=== PATIENT | female | born 1930 | race Caucasian/White ===

== ENCOUNTER 2016-12-18 13:09 | Outpatient (CLI) | payer MEDICARE, OTHER ==
[2016-12-18 19:20] LABS: CALCIUM 8.7 mg/dL (8.5-10.3); CREATININE 0.9 mg/dL (0.4-1.0)
== END 2016-12-18 13:10 | disposition home or self-care (01) ==
LOC: LAB.WCP 13:09
PROVIDERS: ATTEND Internal Medicine Cardiovascular Disease
DX: I48.1 Persistent atrial fibrillation (principal); I10 Essential (primary) hypertension; Z51.81 Encounter for therapeutic drug level monitoring; Z79.899 Other long term (current) drug therapy
CPT/HCPCS: 36415; 80048

== ENCOUNTER 2016-12-19 09:19 | Outpatient (CLI) | payer MEDICARE, OTHER | END 2016-12-19 09:20 | disposition home or self-care (01) | LOC: DI 09:19 | PROVIDERS: ATTEND Internal Medicine Cardiovascular Disease | DX: I48.1 Persistent atrial fibrillation (principal); I10 Essential (primary) hypertension; I47.2 Ventricular tachycardia; Z51.81 Encounter for therapeutic drug level monitoring; Z79.899 Other long term (current) drug therapy; Z95.0 Presence of cardiac pacemaker; I51.7 Cardiomegaly | CPT/HCPCS: 93306 ==

== ENCOUNTER 2016-12-26 15:28 | Outpatient (CLI) | payer MEDICARE, OTHER ==
[2016-12-26 19:21] LABS: HGB - HEMOGLOBIN 13.1 g/dL (12.0-16.0); LYMPHOCYTES # (AUTO) 0.6 10^3/uL (1.5-3.5); MEAN CORPUSCULAR HGB CONC 32.9 g/dL (32.0-36.0); MONOCYTES # (AUTO) 0.1 10^3/uL (0.0-1.0); MONOCYTES % (AUTO) 1.7 %
[2016-12-26 19:25] LABS: BASOPHILS % (AUTO) 0.2 %; EOSINOPHILS % (AUTO) 0.1 %; HCT - HEMATOCRIT 39.9 % (37.0-47.0); MEAN CORPUSCULAR HEMOGLOBIN 29.2 pg (27.0-31.0); MEAN CORPUSCULAR VOLUME 88.7 fL (81.0-99.0); MEAN PLATELET VOLUME 8.5 fL (7.9-10.8); NEUTROPHILS # (AUTO) 7.6 10^3/uL (1.5-6.6); RED BLOOD COUNT 4.49 10^6/uL (4.20-5.40); RED CELL DISTRIBUTION WIDTH 14.3 % (12.0-15.0); UNCORRECTED WHITE BLOOD COUNT 8.4 x10^3/uL; WHITE BLOOD COUNT 8.4 x10^3/uL (4.8-10.8)
[2016-12-26 19:31] LABS: ALBUMIN/GLOBULIN RATIO 1.6 (1.0-2.2); BILIRUBIN,TOTAL 0.5 mg/dL (0.2-1.0); BUN - BLOOD UREA NITROGEN 26 mg/dL (6-20); CALCIUM 8.7 mg/dL (8.5-10.3); CARBON DIOXIDE - CO2 26 mmol/L (21-32); CHLORIDE 105 mmol/L (101-111); CREATININE 1.1 mg/dL (0.4-1.0); GFR - MDRD 47 (>89); GLUCOSE 128 mg/dL (70-100); POTASSIUM 4.7 mmol/L (3.5-5.0); SODIUM 139 mmol/L (135-145); TOTAL PROTEIN 6.8 g/dL (6.7-8.2)
[2016-12-26 20:12] LABS: PLATELET MORPHOLOGY NORMAL APPEARANCE (NORMAL)
[2016-12-26 20:13] LABS: PLATELET ESTIMATE, MANUAL NORMAL (130-450,000) (NORMAL)
== END 2016-12-26 15:29 ==
LOC: LAB.WCP 15:28
PROVIDERS: ATTEND Family Medicine
DX: J44.9 Chronic obstructive pulmonary disease, unspecified (principal); I10 Essential (primary) hypertension; I48.0 Paroxysmal atrial fibrillation; R06.09 Other forms of dyspnea
CPT/HCPCS: 36415; 80053; 83880; 84443; 85025

== ENCOUNTER 2017-01-10 09:30 | Outpatient (CLI) | payer MEDICARE, OTHER ==
[2017-01-10 18:37] VITALS: BP 132/74
--- NOTE | 2017-01-11 11:15 | Nuclear Medicine Report ---
EXAM: SINGLE-ISOTOPE PHARMACOLOGICAL STRESS TEST WITH ADENOSINE. SINGLE-ISOTOPE AND SAME-DAY REST/STRESS MY OCARDIAL PERFUSION SCANS WITH TOMOGRAPHIC IMAGING, QUANTITATIVE ANALYSIS, WALL MOTION ANALYSIS AND CA LCULATION OF EJECTION FRACTION. EXAM DATE: 01/10/2017 10:51 AM. CLINICAL HISTORY: Atrial fibrillation. Hypertension. COMPARISON: Chest x-ray 12/26/2016. TECHNIQUE: Following the intravenous administration of 9.7 mCi of Tc-99m sestamibi, a rest myocardial perfusion scan was done with tomography. Motion correction was applied when appropriate. After a delay of several hours on the same day, a pharmacological stress was performed with the infus ion of adenosine. According to protocol, 44 mCi of Tc-99m sestamibi was injected for stress myocardia l perfusion scan. Stress myocardial perfusion was done with tomography without attenuation correction . Motion correction was applied when appropriate. Gated tomographic images were obtained for wall motion analysis and computation of left ventricular ejection fraction. FINDINGS: Cardiac chamber size is normal. There are no fixed or reversible perfusion defects. No other convincing perfusion abnormalities. No convincing evidence of transient ischemic dilatation. There is normal cardiac wall motion The left ventricular end-diastolic volume is 91 cc. The left ventricular end-systolic volume is 29 cc . The left ventricular ejection fraction is calculated to be 61%. IMPRESSION: 1. No scintigraphic findings to indicate myocardial ischemia. Negative for infarct. 2. Normal left ventricular ejection fraction of 61%. 3. Normal segmental and global wall motion. 4. Normal left ventricular cavity size, no change with stress. [facility] Referring Provider Line: [phone] SITE ID: [id number]
--- NOTE | 2017-01-14 07:52 | CARDIAC PROCEDURE NOTE ---
DATE OF SERVICE: 01/10/2017 00:00:00 PRIMARY CARE PHYSICIAN: Mehul Pereira MD ORDERING WIRELESS RETAIL MANAGER: Richy Lara MD PROCEDURE: Pharmacologic stress test. PROCEDURE SYMPTOMS: Ventricular tachycardia. CARDIAC RISK FACTORS INCLUDE: Age and hypertension. PREVIOUS CARDIAC PROCEDURES: Prior stress testing. CLINICAL HISTORY: An 86-year-old female without known coronary artery disease. INITIAL RESTING VITAL SIGNS: Blood pressure 132/74, heart rate 60, height 61 inches, weight 195 poun ds, BMI 36.8. PROCEDURE AND FINDINGS: Patient identity and date verified, consent signed. Safety stop. Pha rmacologic stress testing was performed with Lexiscan at a dose of 0.4 mg over 10 seconds. The heart increased to 76 beats per minute from the infusion, blood pressure response was normal during the st ress procedure. The patient developed symptoms including nausea, which subsided spontaneously. Resti ng ECG showed an atrial and ventricular paced rhythm. FINAL IMPRESSIONS 1. Nondiagnostic electrocardiogram for ischemia in the setting of vasodilator stress due to paced rhy thm. 2. Negative stress test for angina. 3. No ectopy. DISCUSSION AND RECOMMENDATIONS: Await myocardial perfusion report. JOB #: [id number] EXT JOB #:[id number]
== END 2017-01-10 09:31 | disposition home or self-care (01) ==
LOC: DI 09:30
PROVIDERS: ATTEND Internal Medicine Cardiovascular Disease
DX: I48.1 Persistent atrial fibrillation (principal); I10 Essential (primary) hypertension; I47.2 Ventricular tachycardia; Z79.899 Other long term (current) drug therapy
CPT/HCPCS: 78452; 93017; A9500

== ENCOUNTER 2017-03-15 08:00 | Outpatient (CLI) | payer MEDICARE, OTHER ==
[2017-03-15 19:40] LABS: CALCIUM 8.6 mg/dL (8.5-10.3); POTASSIUM 4.6 mmol/L (3.5-5.0)
== END 2017-03-15 08:01 | disposition home or self-care (01) ==
LOC: LAB.WCP 08:00
PROVIDERS: ATTEND Internal Medicine Cardiovascular Disease
DX: I47.2 Ventricular tachycardia (principal); I48.1 Persistent atrial fibrillation; Z51.81 Encounter for therapeutic drug level monitoring; Z79.899 Other long term (current) drug therapy
CPT/HCPCS: 36415; 80048

== ENCOUNTER 2017-05-09 14:08 | Outpatient (CLI) | payer MEDICARE, OTHER ==
--- NOTE | 2017-05-13 14:08 | Mammography Report ---
DIGITAL SCREENING MAMMOGRAM: 05/09/2017 CLINICAL INDICATION: An 86-year-old for screening. COMPARISON: 05/2016, 03/2015, 01/2014, 10/2012, 10/2011, 10/2009 TECHNIQUE: Routine CC and MLO projections were obtained of the breasts. FINDINGS: The breasts again demonstrate scattered fibroglandular densities bilaterally. Coarse and punctate, typically benign calcifications are present. No suspicious masses, clustered microcalcific ations, or regions of architectural distortion are identified. IMPRESSION: BENIGN FINDINGS. RECOMMENDATION: Routine annual screening unless otherwise clinically indicated. BIRADS CATEGORY 2 - BENIGN FINDINGS. STANDARD QUALIFYING STATEMENTS 1. This examination was reviewed with the aid of Computer-Aided Detection (CAD). 2. A negative or benign imaging report should not delay biopsy if clinically suspicious findings are present. Consider surgical consultation if warranted. More than 5% of cancers are not identified by i maging. 3. Dense breasts may obscure an underlying neoplasm. JOB #: [id number] EXT JOB #:[id number]
== END 2017-05-09 14:09 | disposition home or self-care (01) ==
LOC: DI.N 14:08
PROVIDERS: ATTEND Family Medicine
DX: Z12.31 Encounter for screening mammogram for malignant neoplasm of breast (principal)
CPT/HCPCS: 77067

== ENCOUNTER 2017-09-26 16:41 | Outpatient (CLI) | payer MEDICARE, OTHER | END 2017-09-26 16:42 | disposition critical access hospital (66) | LOC: EMS 16:41 | PROVIDERS: ATTEND Surgery | DX: S09.90XA Unspecified injury of head, initial encounter (principal); V43.52XA Car driver injured in collision with other type car in traffic accident, initial encounter; Y92.414 Local residential or business street as the place of occurrence of the external cause | CPT/HCPCS: A0425; A0429 ==

== ENCOUNTER 2017-09-26 17:01 | Emergency (ER) | payer OTHER, MEDICARE ==
[2017-09-26] MEDS ORDERED: ACETAMINOPHEN 325 MG TABLET PO STA (17:12)
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
--- NOTE | 2017-09-26 18:10 | CT Preliminary Report ---
Exam: CT HEAD W/O IMPRESSION: 1. 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 2. Negative for acute hemorrhage and mass effect. [facility] SITE ID: [id number]
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
--- NOTE | 2017-09-26 18:12 | XRAY Preliminary Report ---
Exam: XR SHOULDER 3 VIEW RT IMPRESSION: 1. Degenerative disease of the acromioclavicular joint. No fracture or subluxation. [facility] SITE ID: [id number]
--- NOTE | 2017-09-26 18:17 | CT Preliminary Report ---
Exam: CT CERVICAL SPINE W/O IMPRESSION: 1. Negative for an acute fracture and subluxation of cervical spine. 2. Brxc-it-kxlyvepl degenerative disk disease at C4-C6. 3. 3.2 cm nodule or cyst in the left lobe of the thyroid. [facility] SITE ID: [id number]
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
[2017-09-26] MEDS ORDERED: traMADol 50 MG TABLET PO STA (18:27)
--- NOTE | 2017-09-26 19:18 | XRAY Preliminary Report ---
Exam: XR SHOULDER 3 VIEW LT IMPRESSION: 1. No fracture or malalignment. 2. Mild glenohumeral arthritis. 3. Moderate acromioclavicular joint arthritis. 4. If patient remains symptomatic, recommend radiographs in 10-14 days. [facility] SITE ID: [id number]
--- NOTE | 2017-09-26 19:22 | XRAY Preliminary Report ---
Exam: XR WRIST 3 VIEW LT IMPRESSION: 1. No fracture or malalignment. 2. Mild wrist swelling noted. [facility] SITE ID: [id number]
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
[2017-09-26 20:02] VITALS: BP 145/73
== END 2017-09-26 20:05 | disposition home or self-care (01) ==
LOC: EDUNIT# → ED 17:01
DX: S00.03XA Contusion of scalp, initial encounter (principal); S46.919A Strain of unspecified muscle, fascia and tendon at shoulder and upper arm level, unspecified arm, initial encounter; S63.502A Unspecified sprain of left wrist, initial encounter; V43.52XA Car driver injured in collision with other type car in traffic accident, initial encounter; Z95.0 Presence of cardiac pacemaker; Z79.01 Long term (current) use of anticoagulants
CPT/HCPCS: 70450; 72125; 73030; 73110; 85610; 99284; A9270

== ENCOUNTER 2018-01-07 08:00 | Outpatient (CLI) | payer MEDICARE, OTHER ==
[2018-01-07 19:11] LABS: BASOPHILS % (AUTO) 0.5 %; EOSINOPHILS % (AUTO) 2.8 %; HGB - HEMOGLOBIN 12.7 g/dL (12.0-16.0); LYMPHOCYTES % (AUTO) 17.6 %; MEAN CORPUSCULAR HEMOGLOBIN 29.8 pg (27.0-31.0); MEAN CORPUSCULAR HGB CONC 33.9 g/dL (32.0-36.0); MEAN CORPUSCULAR VOLUME 87.7 fL (81.0-99.0); MEAN PLATELET VOLUME 8.3 fL (7.9-10.8); MONOCYTES % (AUTO) 7.2 %; NEUTROPHILS % (AUTO) 71.9 %; PLT - PLATELET COUNT 192 10^3/uL (130-450); RED BLOOD COUNT 4.26 10^6/uL (4.20-5.40); RED CELL DISTRIBUTION WIDTH 14.3 % (12.0-15.0); WHITE BLOOD COUNT 5.1 x10^3/uL (4.8-10.8)
[2018-01-07 19:17] LABS: ABNORMAL LYMPHS % (MANUAL) 0 %; BAND NEUTROPHILS % (MANUAL) 0 %
[2018-01-07 19:36] LABS: ALBUMIN 3.7 g/dL (3.2-5.5); ALBUMIN/GLOBULIN RATIO 1.4 (1.0-2.2); ALKALINE PHOSPHATASE 29 IU/L (42-121); ALT ALANINE AMINOTRANSFERASE < 10 IU/L (10-60); AST ASPARTATE AMINOTRANSFERASE 16 IU/L (10-42); BILIRUBIN,TOTAL 0.8 mg/dL (0.2-1.0); BUN - BLOOD UREA NITROGEN 17 mg/dL (6-20); CALCIUM 8.7 mg/dL (8.5-10.3); CARBON DIOXIDE - CO2 26 mmol/L (21-32); CHLORIDE 109 mmol/L (101-111); CREATININE 0.9 mg/dL (0.4-1.0); GFR - MDRD 59 (>89); GLUCOSE 96 mg/dL (70-100); SODIUM 140 mmol/L (135-145); TOTAL PROTEIN 6.4 g/dL (6.7-8.2)
[2018-01-07 19:45] LABS: BASOPHILS # (MANUAL) 0.1 10^3/uL (0-0.1); BASOPHILS % (MANUAL) 2 %; DIFFERENTIAL COMMENT MANUAL DIFFERENTIAL; EOSINOPHILS # (MANUAL) 0.1 10^3/uL (0-0.7); LYMPHOCYTES # (MANUAL) 1.1 10^3/uL (1.5-3.5); LYMPHOCYTES % (MANUAL) 21 %; MONOCYTES # (MANUAL) 0.6 10^3/uL (0.0-1.0); NEUTROPHILS # (MANUAL) 3.3 10^3/uL (1.5-6.6); NEUTROPHILS % (MANUAL) 64 %; PLATELET ESTIMATE, MANUAL NORMAL (130-450,000) (NORMAL); PLATELET MORPHOLOGY NORMAL APPEARANCE (NORMAL); RBC MORPHOLOGY (MULTIPLE) NORMAL APPEARANCE (NORMAL)
== END 2018-01-07 08:01 | disposition home or self-care (01) ==
LOC: LAB.WCP 08:00
PROVIDERS: ATTEND Family Medicine
DX: Z87.898 Personal history of other specified conditions (principal); R06.09 Other forms of dyspnea; J44.9 Chronic obstructive pulmonary disease, unspecified
CPT/HCPCS: 36415; 80053; 83880; 84443; 85025

== ENCOUNTER 2018-03-12 11:59 | Outpatient (CLI) | payer MEDICARE, OTHER ==
[2018-03-12 21:14] LABS: CALCIUM 8.3 mg/dL (8.5-10.3)
== END 2018-03-12 12:00 | disposition home or self-care (01) ==
LOC: LAB.WCP 11:59
PROVIDERS: ATTEND Physician Assistant
DX: R60.9 Edema, unspecified (principal)
CPT/HCPCS: 36415; 80048

== ENCOUNTER 2018-04-14 13:54 | Outpatient (CLI) | payer MEDICARE, OTHER ==
[2018-04-14 18:57] LABS: BASOPHILS # (AUTO) 0.1 10^3/uL (0.0-0.1); BASOPHILS % (AUTO) 0.5 %; EOSINOPHILS # (AUTO) 0.1 10^3/uL (0.0-0.7); EOSINOPHILS % (AUTO) 0.7 %; HGB - HEMOGLOBIN 13.4 g/dL (12.0-16.0); LYMPHOCYTES # (AUTO) 0.9 10^3/uL (1.5-3.5); LYMPHOCYTES % (AUTO) 9.3 %; MEAN CORPUSCULAR HEMOGLOBIN 29.4 pg (27.0-31.0); MEAN CORPUSCULAR HGB CONC 32.7 g/dL (32.0-36.0); MEAN CORPUSCULAR VOLUME 89.9 fL (81.0-99.0); MEAN PLATELET VOLUME 8.4 fL (7.9-10.8); MONOCYTES # (AUTO) 0.5 10^3/uL (0.0-1.0); MONOCYTES % (AUTO) 4.7 %; NEUTROPHILS # (AUTO) 8.5 10^3/uL (1.5-6.6); NEUTROPHILS % (AUTO) 84.8 %; PLT - PLATELET COUNT 245 10^3/uL (130-450); RED BLOOD COUNT 4.54 10^6/uL (4.20-5.40); RED CELL DISTRIBUTION WIDTH 15.4 % (12.0-15.0)
[2018-04-14 19:06] LABS: ALBUMIN 4.3 g/dL (3.2-5.5); ALBUMIN/GLOBULIN RATIO 1.7 (1.0-2.2); ALKALINE PHOSPHATASE 35 IU/L (42-121); ALT ALANINE AMINOTRANSFERASE < 10 IU/L (10-60); AST ASPARTATE AMINOTRANSFERASE 20 IU/L (10-42); BILIRUBIN,TOTAL 0.4 mg/dL (0.2-1.0); BUN - BLOOD UREA NITROGEN 27 mg/dL (6-20); CALCIUM 8.6 mg/dL (8.5-10.3); CARBON DIOXIDE - CO2 30 mmol/L (21-32); CHLORIDE 104 mmol/L (101-111); CREATININE 1.2 mg/dL (0.4-1.0); GFR - MDRD 43 (>89); GLUCOSE 108 mg/dL (70-100); SODIUM 142 mmol/L (135-145); TOTAL PROTEIN 6.9 g/dL (6.7-8.2)
== END 2018-04-14 13:55 | disposition home or self-care (01) ==
LOC: LAB.WCP 13:54
PROVIDERS: ATTEND Physician Assistant
DX: I50.32 Chronic diastolic (congestive) heart failure (principal); I48.91 Unspecified atrial fibrillation; J44.9 Chronic obstructive pulmonary disease, unspecified; M25.552 Pain in left hip; R60.9 Edema, unspecified
CPT/HCPCS: 36415; 80053; 85025

== ENCOUNTER 2018-04-29 13:47 | Emergency (ER) | payer MEDICARE, OTHER ==
[2018-04-29] MEDS ORDERED: IPRATROPIUM/ALBUTEROL 3 ML NEB INH STA (14:58)
--- NOTE | 2018-04-29 15:00 | ED Physician Documentation ---
PD HPI DYSPNEA - Stated complaint Stated Complaint: SOA - Chief complaint Chief Complaint: Resp - History obtained from History obtained from: Patient - History of Present Illness Timing - onset: Other (87-year-old woman with history of COPD got sick late last month [place]. She has been on 2 rounds of antibiotics and steroids but continues to have increasing shortness of breath with nonproductive cough and wheezing. She is also worried about potential throat cancer and saw an ENT physician and has had a nasal laryngoscopy which was negative per her description.) Review of Systems Constitutional: denies: Fever, Chills Nose: denies: Rhinorrhea / runny nose, Congestion Cardiac: denies: Chest pain / pressure, Palpitations Respiratory: reports: Dyspnea, Cough PD PAST MEDICAL HISTORY - Past Medical History Past Medical History: Yes Cardiovascular: Other Respiratory: COPD Endocrine/Autoimmune: None GI: Diverticulitis Psych: Depression - Past Surgical History Past Surgical History: Yes General: Cholecystectomy, Bowel surgery Ortho: Spine surgery, 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 Cardiovascular: Pacemaker - Present Medications Home Medications: Ambulatory Orders Medication Instructions Recorded Confirmed Citalopram Hydrobromide [Celexa] 20 01/14/14 01/14/14 Dofetilide [Tikosyn] 250 mcg PO BID 01/14/14 01/14/14 Doxazosin Mesylate [Cardura] 2 mg PO BID 01/14/14 01/14/14 Furosemide [Lasix] 20 mg PO DAILY 01/14/14 01/14/14 Telmisartan [Micardis] 80 mg PO DAILY 01/14/14 01/14/14 Triamcinolone 0.1% Cream [Kenalog 01/14/14 01/14/14 0.1% Cream] Warfarin [Coumadin] 2.5 mg PO DAILY 01/14/14 01/14/14 Dexamethasone [Decadron] 4 mg PO DAILY #5 tablet 03/19/16 Tramadol HCl 50 mg PO Q6H PRN #20 tablet 09/26/17 predniSONE [Prednisone] 60 mg PO DAILY 5 Days #15 tablet 04/29/18 - Allergies Allergies/Adverse Reactions: Allergies Allergy/AdvReac Type Severity Reaction Status Date / Time Iodinated Contrast- Oral and Allergy Anaphylaxis Verified 04/29/18 13:53 IV Dye Penicillins Allergy Rash Verified 04/29/18 13:53 Sulfa (Sulfonamide Allergy Rash Verified 04/29/18 13:53 Antibiotics) - Social History Does the pt smoke?: No Smoking Status: Never smoker PD ED PE NORMAL - Vitals Vital signs reviewed: Yes - General General: Alert and oriented X 3, No acute distress - HEENT HEENT: PERRL, EOMI, Pharynx benign, Other (Her nose is bandaged from a recent skin cancer surgery) - Neck Neck: Supple, no meningeal sign, No bony TTP - Cardiac Cardiac: RRR, No murmur - Respiratory Respiratory: No respiratory distress, Other (Wheezy throughout with decent air motion, no focal findings) - Abdomen Abdomen: Non tender - Extremities Extremities: No edema, No calf tenderness / cord - Neuro Neuro: Alert and oriented X 3, Normal speech Results - Vitals Vitals: Vital Signs - 24 hr 04/29/18 04/29/18 13:49 15:14 Temperature 36.8 C Heart Rate 61 78 Respiratory 20 20 Rate Blood Pressure 145/80 H O2 Saturation 95 Oxygen O2 Source Room air - Labs Labs: Laboratory Tests 04/29/18 15:09 Whole Blood INR 1.7 H - Rads (name of study) 2v chest Radiology: EMP read contemporaneously (NAD) PD MEDICAL DECISION MAKING - ED course ED course: This is an 87-year-old woman who presents with a COPD exacerbation. The first problem I note is I had her show me her albuterol inhaler, she had 2 MDIs hooked up in the series and no spacer. Her cargoman had prescribed her a nebulizer but there was some sort of problem with preauthorization and they are working on that. She feels better after breathing treatment here we will put her back on a few days of steroids while she works out the nebulizer issue. Departure - Departure Disposition: 01 Home, Self Care Clinical Impression: Moderate COPD (chronic obstructive pulmonary disease) Condition: Good Record reviewed to determine appropriate education?: Yes Instructions: COPD Dc Prescriptions: predniSONE [Prednisone] 60 mg PO DAILY 5 Days #15 tablet Comments: Call your doctor to arrange a follow-up appointment, make the next available appointment. In the interim, return anytime if worse or if new symptoms develop. Your blood pressure was elevated today on check into the emergency department. This does not mean that you have hypertension, it is a common phenomenon to come to the emergency department and have elevated blood pressure. I recommend that you see your primary care physician within the week to have it rechecked when you are feeling better.
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
[2018-04-29 16:53] VITALS: BP 129/45
== END 2018-04-29 17:18 | disposition home or self-care (01) ==
LOC: ED 13:47
DX: J44.1 Chronic obstructive pulmonary disease with (acute) exacerbation (principal); R03.0 Elevated blood-pressure reading, without diagnosis of hypertension
CPT/HCPCS: 71046; 85610; 94640; 99283; 99284

== ENCOUNTER 2018-05-13 13:47 | Outpatient (CLI) | payer MEDICARE, OTHER ==
[2018-05-13 19:03] LABS: INR 2.2 (0.8-1.2); PT - PROTHROMBIN TIME 24.2 secs (9.9-12.6)
== END 2018-05-13 13:48 | disposition home or self-care (01) ==
LOC: LAB.WCP 13:47
PROVIDERS: ATTEND Family Medicine
DX: I48.0 Paroxysmal atrial fibrillation (principal); Z79.01 Long term (current) use of anticoagulants
CPT/HCPCS: 36415; 85610

== ENCOUNTER 2018-06-15 12:35 | Outpatient (CLI) | payer MEDICARE, OTHER | END 2018-06-15 12:36 | disposition critical access hospital (66) | LOC: EMS 12:35 | PROVIDERS: ATTEND Surgery | DX: M25.552 Pain in left hip (principal); M25.562 Pain in left knee; W01.0XXA Fall on same level from slipping, tripping and stumbling without subsequent striking against object, initial encounter; Y93.01 Activity, walking, marching and hiking; Y92.22 Religious institution as the place of occurrence of the external cause | CPT/HCPCS: A0425; A0429 ==

== ENCOUNTER 2018-06-15 12:58 | Emergency (ER) | payer MEDICARE, OTHER ==
[2018-06-15 13:24] LABS: BILIRUBIN,URINE NEGATIVE (NEGATIVE); GLUCOSE, URINE (UA) NEGATIVE (NEGATIVE); KETONES,URINE (UA) NEGATIVE (NEGATIVE); LEUKOCYTE ESTERASE, URINE TRACE (NEGATIVE); NITRITE,URINE NEGATIVE (NEGATIVE); OCCULT BLOOD,URINE NEGATIVE (NEGATIVE); PROTEIN,URINE NEGATIVE (NEGATIVE); UROBILINOGEN,URINE 0.2 (NORMAL) E.U./dL (NORMAL)
[2018-06-15 13:28] LABS: CLARITY,URINE CLEAR (CLEAR)
[2018-06-15 13:32] LABS: RBC,URINE 0-5 /HPF (0-5); SQUAMOUS EPITHELIAL CELL,UR FEW Squamous (<= Few)
[2018-06-15 13:33] LABS: BACTERIA,URINE Rare /HPF (None Seen); CASTS, URINE 0-2 Hyaline Casts /LPF
[2018-06-15] MEDS ORDERED: HYDROcod/ACETAM 5/325 MG TABLET PO STA ×2 (13:44→15:32)
[2018-06-15] MEDS ORDERED: ALBUTEROL NEB 2.5 MG/3 ML INH STA (13:44)
--- NOTE | 2018-06-15 13:46 | ED Physician Documentation ---
History of Present Illness - Stated complaint Stated Complaint: HIP/KNEE PX - Chief complaint Chief Complaint: Ext Problem - History obtained from History obtained from: Patient - History of Present Illness Timing: Other (This is an 87-year-old woman on warfarin with chronic bronchitis since March who tripped and fell today in orth[place] and landed on her left side. The major site of pain is the lateral upper left ribs and she has mild left hip pain but is able to walk and bear weight painlessly. No other injuries. She is 100% sure she did not hit her head. 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 Cardiovascular: Pacemaker - Present Medications Home Medications: Ambulatory Orders Medication Instructions Recorded Confirmed Citalopram Hydrobromide [Celexa] 20 mg PO DAILY 01/14/14 06/15/18 Dofetilide [Tikosyn] 250 mcg PO BID 01/14/14 06/15/18 Doxazosin Mesylate [Cardura] 2 mg PO BID 01/14/14 06/15/18 Telmisartan [Micardis] 80 mg PO DAILY 01/14/14 06/15/18 Warfarin [Coumadin] 2.5 mg PO DAILY 01/14/14 06/15/18 Acetaminophen 1 tab PO Q6HR 06/15/18 06/15/18 Doxycycline Hyclate 100 mg PO BID #20 capsule 06/15/18 Hydrocodone/Acetaminophen 1 - 2 each PO Q6H PRN #14 tablet 06/15/18 [Hydrocodon-Acetaminophen 5-325] Ketoconazole 1 applic TD DAILY PRN 06/15/18 06/15/18 Metoprolol Tartrate 2 tab PO DAILY 06/15/18 06/15/18 Spironolactone 1 tab PO DAILY 06/15/18 06/15/18 hydrALAZINE [Apresoline] 1 tab PO TID 06/15/18 06/15/18 - Allergies Allergies/Adverse Reactions: Allergies Allergy/AdvReac Type Severity Reaction Status Date / Time aspirin Allergy Unknown Verified 06/15/18 14:13 celecoxib Allergy Unknown Verified 06/15/18 14:13 Iodinated Contrast- Oral and Allergy Anaphylaxis Verified 06/15/18 13:51 IV Dye morphine Allergy Unknown Verified 06/15/18 14:13 Penicillins Allergy Rash Verified 06/15/18 13:51 shellfish derived Allergy Unknown Verified 06/15/18 14:13 Sulfa (Sulfonamide Allergy Rash Verified 06/15/18 13:51 Antibiotics) - Social History Does the pt smoke?: No Smoking Status: Never smoker PD ED PE NORMAL - Vitals Vital signs reviewed: Yes - General General: Alert and oriented X 3, No acute distress - HEENT HEENT: PERRL, EOMI - Neck Neck: Supple, no meningeal sign, No bony TTP - Cardiac Cardiac: RRR, No murmur - Respiratory Respiratory: Other (Diffusely wheezy and mildly labored) - Abdomen Abdomen: Non tender - Extremities Extremities: Other (There is no tenderness of the left hip and I am able to range it and internally and externally rotate it without Pain or tenderness.) - Neuro Neuro: Alert and oriented X 3, Normal speech Results - Vitals Vitals: Vital Signs - 24 hr 06/15/18 06/15/18 06/15/18 13:00 14:03 15:27 Temperature 36.2 C L 36.0 C L Heart Rate 59 L 67 60 Respiratory 20 18 18 Rate Blood Pressure 134/75 H 140/54 H O2 Saturation 96 99 Oxygen O2 Source Room air - Labs Labs: Laboratory Tests 06/15/18 06/15/18 06/15/18 13:13 15:18 15:18 WBC 5.8 RBC 4.07 L Hgb 12.1 Hct 36.8 L MCV 90.4 MCH 29.8 MCHC 33.0 RDW 14.1 Plt Count 156 MPV 7.9 Neut # (Auto) 4.3 Lymph # (Auto) 0.8 L [place] # (Auto) 0.4 Eos # (Auto) 0.3 Baso # (Auto) 0.0 Absolute Nucleated RBC 0.00 Nucleated RBC % 0.0 PT 18.6 H INR 1.7 H Sodium Potassium Chloride Carbon Dioxide Anion Gap BUN Creatinine Estimated GFR (MDRD) Glucose Calcium Urine Color YELLOW Urine Clarity CLEAR Urine pH 6.0 Ur Specific [place] 1.010 Urine Protein NEGATIVE Urine Glucose (UA) NEGATIVE Urine Ketones NEGATIVE Urine Occult Blood NEGATIVE Urine Nitrite NEGATIVE Urine Bilirubin NEGATIVE Urine Urobilinogen 0.2 (NORMAL) Ur Leukocyte Esterase TRACE H Urine RBC 0-5 Urine WBC 0-3 Ur Squamous Epith Cells FEW Squamous Urine Bacteria Rare Urine Casts 0-2 Hyaline Casts Ur Microscopic Review INDICATED Urine Culture Comments INDICATED 06/15/18 15:18 WBC RBC Hgb Hct MCV MCH MCHC RDW Plt Count MPV Neut # (Auto) Lymph # (Auto) [place] # (Auto) Eos # (Auto) Baso # (Auto) Absolute Nucleated RBC Nucleated RBC % PT INR Sodium 137 Potassium 4.3 Chloride 101 Carbon Dioxide 27 Anion Gap 9.0 BUN 35 H Creatinine 1.3 H Estimated GFR (MDRD) 39 L Glucose 106 H Calcium 8.5 Urine Color Urine Clarity Urine pH Ur Specific [place] Urine Protein Urine Glucose (UA) Urine Ketones Urine Occult Blood Urine Nitrite Urine Bilirubin Urine Urobilinogen Ur Leukocyte Esterase Urine RBC Urine WBC Ur Squamous Epith Cells Urine Bacteria Urine Casts Ur Microscopic Review Urine Culture Comments - Rads (name of study) XR L hip and L ribs Radiology: EMP read contemporaneously (all neg) CT Head and Cspine Radiology: EMP read contemporaneously (NAD) PD MEDICAL DECISION MAKING - ED course ED course: This is a winifred 87-year-old woman who had a ground-level fall injuring her left hip and more so her left ribs today. Initially she said she had no neck or head pain but While in x-ray she started having more complaints of neck pain so those were scanned as well without relevant findings. She has ongoing bronchitis and given months worth of symptoms and advanced age we did give her some antibiotics as well. Departure - Departure Disposition: 01 Home, Self Care Clinical Impression: Moderate COPD (chronic obstructive pulmonary disease), Subtherapeutic anticoagulation Chest wall contusion Qualifiers: Encounter type: initial encounter Laterality: left Qualified Code(s): S20.212A - Contusion of left front wall of thorax, initial encounter Neck sprain Qualifiers: Encounter type: initial encounter Qualified Code(s): S13.9XXA - Sprain of joints and ligaments of unspecified parts of neck, initial encounter Contusion of hip, right Qualifiers: Encounter type: initial encounter Qualified Code(s): S70.01XA - Contusion of right hip, initial encounter Condition: Good Record reviewed to determine appropriate education?: Yes Instructions: ED Contusion Chest Wall Prescriptions: Doxycycline Hyclate 100 mg PO BID #20 capsule Hydrocodone/Acetaminophen [Hydrocodon-Acetaminophen 5-325] 1 - 2 each PO Q6H PRN #14 tablet PRN Reason: pain Comments: As discussed, your INR today is only 1.7 but that is likely to go up while on antibiotics that You should have it checked frequently while on antibiotics. Call your doctor to arrange a follow-up appointment, make the next available appointment. In the interim, return anytime if worse or if new symptoms develop. Do not drink or drive while taking narcotic pain medication. Note that many narcotic pain relievers also contain Tylenol/acetaminophen. Please ensure that your total dose of acetaminophen from all sources does not exceed 3 g (3000 mg) per day. You may get constipated while on this medication. Take a stool softener such as Colace twice a day while you are on it. Also add an cgce-oae-[id number] laxative such as senna or MiraLAX on any day that you do not have a bowel movement. If you received a narcotic pain medication or sedative while in the emergency department, do not drive for the next 24 hours.
--- NOTE | 2018-06-15 15:15 | XRAY Report ---
Reason: L rib in j Procedure Date: 06/15/2018 Accession Number: [id number] / [id number] Procedure: XR - Ribs w/PA Chest LT CPT Code: FULL RESULT: EXAM: LEFT RIB RADIOGRAPHY EXAM DATE: 06/15/2018 02:46 PM. CLINICAL HISTORY: L rib in j. COMPARISON: CHEST 2 VIEW 04/29/2018 3:58 PM. TECHNIQUE: 1 view of the chest and 2 views of the ribs. FINDINGS: Bones: Normal. No fracture or bone lesion. Lungs: No focal opacities. No pneumothorax. No pleural effusions. Mediastinum: There is borderline cardiomegaly. There is thoracic aortic calcification. Left subclavian dual-lead pacemaker is in place. Other: None. IMPRESSION: Negative chest and rib radiography. RADIA
--- NOTE | 2018-06-15 15:16 | XRAY Report ---
Reason: L hip inj Procedure Date: 06/15/2018 Accession Number: [id number] / [id number] Procedure: XR - Hip w/Pelvis 2-3V LT CPT Code: FULL RESULT: EXAM: LEFT HIP AND PELVIS RADIOGRAPHY EXAM DATE: 06/15/2018 02:45 PM. HISTORY: L hip inj. COMPARISONS: HIP 2 VIEW LT 10/11/2017 3:20 PM. TECHNIQUE: 1 view of the pelvis and 1 view of the hip. FINDINGS: Bones: Normal. No fracture or bone lesion. Joints: No evidence of dislocation. Patient has undergone right hip arthroplasty. Soft Tissues: Normal. No soft tissue swelling. IMPRESSION: No radiographic evidence of acute fracture or dislocation. Plain film can be insensitive for detection of hip fracture in elderly patients. If there is concern for occult proximal femur fracture, MRI could be used for further evaluation. RADIA
[2018-06-15 15:28] VITALS: BP 140/54
[2018-06-15 15:28] LABS: BASOPHILS % (AUTO) 0.8 %; EOSINOPHILS # (AUTO) 0.3 10^3/uL (0.0-0.7); EOSINOPHILS % (AUTO) 4.6 %; HGB - HEMOGLOBIN 12.1 g/dL (12.0-16.0); LYMPHOCYTES # (AUTO) 0.8 10^3/uL (1.5-3.5); MEAN CORPUSCULAR HEMOGLOBIN 29.8 pg (27.0-31.0); MEAN CORPUSCULAR VOLUME 90.4 fL (81.0-99.0); MEAN PLATELET VOLUME 7.9 fL (7.9-10.8); MONOCYTES # (AUTO) 0.4 10^3/uL (0.0-1.0); MONOCYTES % (AUTO) 6.1 %; NEUTROPHILS # (AUTO) 4.3 10^3/uL (1.5-6.6); NEUTROPHILS % (AUTO) 74.5 %; PLT - PLATELET COUNT 156 10^3/uL (130-450); RED BLOOD COUNT 4.07 10^6/uL (4.20-5.40); RED CELL DISTRIBUTION WIDTH 14.1 % (12.0-15.0); WHITE BLOOD COUNT 5.8 x10^3/uL (4.8-10.8)
[2018-06-15 15:31] LABS: CALCIUM 8.5 mg/dL (8.5-10.3); CREATININE 1.3 mg/dL (0.4-1.0)
[2018-06-15 15:35] LABS: INR 1.7 (0.8-1.2); PT - PROTHROMBIN TIME 18.6 secs (9.9-12.6)
--- NOTE | 2018-06-15 15:45 | CT Report ---
Reason: fall, warfarin, unlikely head inj Procedure Date: 06/15/2018 Accession Number: [id number] / [id number] Procedure: CT - Head W/O CPT Code: FULL RESULT: EXAM: CT HEAD EXAM DATE: 06/15/2018 03:00 PM. CLINICAL HISTORY: Fall, patient on warfarin. COMPARISON: Head CT 09/26/2017. TECHNIQUE: Multiaxial CT images were obtained from the foramen magnum to the vertex. Reformats: Sagittal and coronal. IV contrast: None. In accordance with CT protocol optimization, one or more of the following dose reduction techniques were utilized for this exam: automated exposure control, adjustment of mA and/or KV based on patient size, or use of iterative reconstructive technique. FINDINGS: Parenchyma: Focal encephalomalacia within the high right parietal lobe. Moderate low density in the deep white matter without intracranial bleed or mass-effect. Extraaxial Spaces: No subdural or epidural collections identified. Ventricles: Normal in size and position. Sinuses and Orbits: Imaged paranasal sinuses, orbits, and mastoids show no significant abnormality. Bones: No evidence of fracture or calvarial defect. Other: Atherosclerosis. Status post bilateral lens surgery. IMPRESSION: 1. No intracranial bleed or mass-effect. 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 3. Nonspecific white matter disease, likely microangiopathy. RADIA
--- NOTE | 2018-06-15 16:09 | CT Report ---
Reason: neck inj Procedure Date: 06/15/2018 Accession Number: [id number] / [id number] Procedure: CT - Cervical Spine W/O CPT Code: FULL RESULT: EXAM: CT CERVICAL SPINE WITHOUT CONTRAST DATE: 06/15/2018 03:00 PM. HISTORY: Fall, neck injury. Patient on warfarin. COMPARISONS: None. TECHNIQUE: Thin-section axial images were acquired of the cervical spine without contrast. Post-processing: Coronal and sagittal reformats. Other: None. In accordance with CT protocol optimization, one or more of the following dose reduction techniques were utilized for this exam: automated exposure control, adjustment of mA and/or KV based on patient size, or use of iterative reconstructive technique. FINDINGS: Alignment: No scoliosis or spondylolisthesis. Bones: No fracture or bone lesion. Interspace Levels/Facets: C1-C2: Unremarkable. C2-C3: Unremarkable. C3-C4: Unremarkable. C4-C5: Facet hypertrophy with disk space narrowing and anterior and posterior osteophytes causing mild central spinal canal and moderate to severe bilateral foraminal stenosis. C5-C6: Facet hypertrophy with disk space narrowing, anterior and posterior osteophytes causing mild central spinal canal and moderate right foraminal stenosis. C6-C7: Mild disk space narrowing without significant stenosis. C7-T1: Facet hypertrophy without significant stenosis. Other: Centrilobular emphysema. Pacemaker wires partially included on the examination extending from the left. 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 IMPRESSION: Multilevel degenerative disk disease without evidence of fracture. RADIA
== END 2018-06-15 16:29 | disposition home or self-care (01) ==
LOC: ED 12:58
DX: S13.4XXA Sprain of ligaments of cervical spine, initial encounter (principal); S20.212A Contusion of left front wall of thorax, initial encounter; S70.02XA Contusion of left hip, initial encounter; W01.0XXA Fall on same level from slipping, tripping and stumbling without subsequent striking against object, initial encounter; Y92.22 Religious institution as the place of occurrence of the external cause; R79.1 Abnormal coagulation profile; Z79.01 Long term (current) use of anticoagulants; J44.9 Chronic obstructive pulmonary disease, unspecified
CPT/HCPCS: 36415; 70450; 71101; 72125; 73502; 80048; 81001; 85025; 85610; 87086; 94640; 99283; 99284; A9270; 81003

== ENCOUNTER 2018-06-18 09:54 | Emergency (ER) | payer MEDICARE, OTHER ==
[2018-06-18] MEDS ORDERED: IPRATROPIUM/ALBUTEROL 3 ML NEB INH STA (10:36)
--- NOTE | 2018-06-18 11:27 | ED Physician Documentation ---
PD HPI LOWER EXT INJURY - Stated complaint Stated Complaint: LEFT LEG PX - Chief complaint Chief Complaint: Trauma Ext - History obtained from History obtained from: Patient - History of Present Illness PD HPI LOW EXT INJURY LOCATION: Left, Knee Type of injury: Fall Where injury occurred: Other (latter day) Timing - onset: How many days ago (3) Timing - duration: Days (3) Timing - details: Abrupt onset, Intermittant Pain level max: 6 Pain level now: 6 Improved by: Rest Worsened by: Moving Associated symptoms: Swelling, Discolored. No: Weakness, Numbness, Tingling - Additional information Additional information: 87-year-old female with history of hypertension, diabetes, COPD on Coumadin for atrial fib here with complaint of trip and fall in latter day related to rug 3 days ago. Patient stated she was seen in the emergency room for rib pain and the x- ray was negative. However she forgot to say something about her left knee and left shoulder so she is here today due to pain and would like some x-rays. Patient stated she has not taken her inhaler or nebulizer today. 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, 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 Cardiovascular: Pacemaker - Present Medications Home Medications: Ambulatory Orders Medication Instructions Recorded Confirmed Citalopram Hydrobromide [Celexa] 20 mg PO DAILY 01/14/14 06/15/18 Dofetilide [Tikosyn] 250 mcg PO BID 01/14/14 06/15/18 Doxazosin Mesylate [Cardura] 2 mg PO BID 01/14/14 06/15/18 Telmisartan [Micardis] 80 mg PO DAILY 01/14/14 06/15/18 Warfarin [Coumadin] 2.5 mg PO DAILY 01/14/14 06/15/18 Acetaminophen 1 tab PO Q6HR 06/15/18 06/15/18 Doxycycline Hyclate 100 mg PO BID #20 capsule 06/15/18 Hydrocodone/Acetaminophen 1 - 2 each PO Q6H PRN #14 tablet 06/15/18 [Hydrocodon-Acetaminophen 5-325] Ketoconazole 1 applic TD DAILY PRN 06/15/18 06/15/18 Metoprolol Tartrate 2 tab PO DAILY 06/15/18 06/15/18 Spironolactone 1 tab PO DAILY 06/15/18 06/15/18 hydrALAZINE [Apresoline] 1 tab PO TID 06/15/18 06/15/18 Albuterol 2.5 mg INH Q4H PRN 06/18/18 06/18/18 Albuterol Sulf [Ventolin Hfa 06/18/18 Inhaler] - Allergies Allergies/Adverse Reactions: Allergies Allergy/AdvReac Type Severity Reaction Status Date / Time aspirin Allergy Unknown Verified 06/18/18 10:25 celecoxib Allergy Unknown Verified 06/18/18 10:25 Iodinated Contrast- Oral and Allergy Anaphylaxis Verified 06/18/18 10:25 IV Dye morphine Allergy Unknown Verified 06/18/18 10:25 Penicillins Allergy Rash Verified 06/18/18 10:25 shellfish derived Allergy Unknown Verified 06/18/18 10:25 Sulfa (Sulfonamide Allergy Rash Verified 06/18/18 10:25 Antibiotics) - Social History Does the pt smoke?: No Smoking Status: Never smoker Does the pt drink ETOH?: No Does the pt have substance abuse?: No - Immunizations Immunizations are current?: Yes PD ED PE NORMAL - Vitals Vital signs reviewed: Yes - General General: Alert and oriented X 3, No acute distress, Well developed/nourished - Neck Neck: Supple, no meningeal sign - Cardiac Cardiac: RRR, No murmur - Respiratory Respiratory: Other (Few scattered expiratory wheezing. (Patient stated she has not taken her albuterol nebulizer this morning)) - Abdomen Abdomen: Normal bowel sounds, Soft, Non tender, Non distended - Back Back: No CVA TTP, No spinal TTP - Derm Derm: Normal color, Warm and dry - Extremities Extremities: No deformity, No edema, No calf tenderness / cord, Other (Left shoulder mild tenderness to palpation with limited range of motion particularly on hyperextension. Left knee with ecchymosis and mild swelling and mild tenderness to palpation. Extremities: Sensation intact, temperature normal, pulses +2.All neurovascularly intact.) - Neuro Neuro: Alert and oriented X 3 - Psych Psych: Normal mood, Normal affect Results - Vitals Vitals: Vital Signs - 24 hr 06/18/18 06/18/18 06/18/18 10:19 10:49 13:43 Temperature 36.6 C Heart Rate 57 L 64 60 Respiratory 20 20 15 Rate Blood Pressure 126/44 L 130/52 L O2 Saturation 99 92 Oxygen O2 Source Room air PD MEDICAL DECISION MAKING - ED course Complexity details: reviewed results, re-evaluated patient, considered differential (Contusion, fracture, dislocation,), d/w patient ED course: 1410 patient sitting up in the bedside commode. Inform of x-ray results. 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 Patient wants to go home. Departure - Departure Disposition: Home, Self Care Clinical Impression: Multiple leg contusions Qualifiers: Encounter type: initial encounter Laterality: left Qualified Code(s): S80.12XA - Contusion of left lower leg, initial encounter Shoulder pain, left Qualifiers: Chronicity: chronic Qualified Code(s): M25.512 - Pain in left shoulder; G89.29 - Other chronic pain Condition: Stable Instructions: ED Contusion Lower Extr Ch, ED Strain Muscle Ext Comments: Maintain safety. Take [id number] Tylenol for pain. Elevate your left leg to decrease the swelling. Follow-up with your primary doctor this week. If worse return to the emergency room.
--- NOTE | 2018-06-18 12:40 | XRAY Report ---
Reason: chest pain Procedure Date: 06/18/2018 Accession Number: [id number] / [id number] Procedure: XR - Chest 1 View X-Ray CPT Code: 09178 FULL RESULT: EXAM: CHEST RADIOGRAPHY EXAM DATE: 06/18/2018 12:18 PM. CLINICAL HISTORY: Chest pain. COMPARISON: RIBS W/PA CHEST LT 06/15/2018 2:24 PM. TECHNIQUE: 1 view. FINDINGS: Lungs/Pleura: No focal opacities evident. No pleural effusion. No pneumothorax. Mediastinum: Within exam limitations, the cardiomediastinal contour is normal. Other: Left subclavian pacemaker. Right acromioclavicular joint degenerative changes. Convex right lower thoracic scoliosis. IMPRESSION: No acute airspace disease demonstrated. RADIA
--- NOTE | 2018-06-18 12:42 | XRAY Report ---
Reason: fall pain Procedure Date: 06/18/2018 Accession Number: [id number] / [id number] Procedure: XR - Shoulder 3 View LT CPT Code: FULL RESULT: EXAM: LEFT SHOULDER RADIOGRAPHY EXAM DATE: 06/18/2018 12:18 PM. CLINICAL HISTORY: Fall pain. COMPARISON: SHOULDER 3 VIEW LT 09/26/2017 6:50 PM. TECHNIQUE: 3 views. FINDINGS: Bones: Normal. No fracture or bone lesion. Joints: Left acromioclavicular joint space narrowing. Soft tissues: Left subclavian pacemaker. Cannot exclude a tiny inferior left axillary radiopaque foreign body. IMPRESSION: 1. Mild degenerative change. 2. No fracture evident. RADIA
--- NOTE | 2018-06-18 12:55 | XRAY Report ---
Reason: fall pain Procedure Date: 06/18/2018 Accession Number: [id number] / [id number] Procedure: XR - Knee 3 View LT CPT Code: FULL RESULT: EXAM: LEFT KNEE RADIOGRAPHY EXAM DATE: 06/18/2018 12:18 PM. CLINICAL HISTORY: Fall pain. COMPARISON: XR KNEE 4 OR MORE VIEWS 03/02/2009 4:46 PM. TECHNIQUE: 3 views. FINDINGS: Bones: Normal. No fractures or bone lesions. Joints: Mild lateral compartment narrowing with marginal osteophytes. Narrowing of patellofemoral joint space with marginal spurring. Small effusion. Soft Tissues: Normal. No soft tissue swelling. IMPRESSION: 1. Degenerative changes. 2. Small right knee joint effusion. 3. No fracture evident. RADIA
[2018-06-18 13:44] VITALS: BP 130/52
== END 2018-06-18 14:40 | disposition home or self-care (01) ==
LOC: ED 09:54
DX: S80.12XA Contusion of left lower leg, initial encounter (principal); M25.512 Pain in left shoulder; W01.0XXA Fall on same level from slipping, tripping and stumbling without subsequent striking against object, initial encounter; Y92.22 Religious institution as the place of occurrence of the external cause; J44.9 Chronic obstructive pulmonary disease, unspecified; Z86.79 Personal history of other diseases of the circulatory system; Z79.01 Long term (current) use of anticoagulants; E11.9 Type 2 diabetes mellitus without complications; I10 Essential (primary) hypertension; Z95.0 Presence of cardiac pacemaker
CPT/HCPCS: 71045; 94640; 99283

== ENCOUNTER 2018-07-07 12:53 | Outpatient (CLI) | payer MEDICARE, OTHER | END 2018-07-07 12:54 | disposition home or self-care (01) | LOC: DI 12:53 | PROVIDERS: ATTEND Family Medicine | DX: I50.32 Chronic diastolic (congestive) heart failure (principal); J44.9 Chronic obstructive pulmonary disease, unspecified; I48.0 Paroxysmal atrial fibrillation; I08.1 Rheumatic disorders of both mitral and tricuspid valves | CPT/HCPCS: 93306 ==

== ENCOUNTER 2018-07-08 11:41 | Outpatient (CLI) | payer MEDICARE, OTHER ==
--- NOTE | 2018-07-09 09:18 | Mammography Report ---
Reason: SCREENING MAMMO Procedure Date: 07/08/2018 Accession Number: [id number] / [id number] Procedure: MGN - Screening Mammo Dig Bilat CPT Code: FULL RESULT: EXAM: Screening Mammo Dig Bilat DATE: 07/08/2018 12:01 PM CLINICAL HISTORY: Screening encounter. History of early menses. TECHNIQUE: Bilateral CC and MLO views were obtained. COMPARISON: 05/09/2017 through 02/01/2014. FINDINGS: The breasts demonstrate scattered fibroglandular densities bilaterally. A pacemaker is again seen along the left chest wall. Benign calcifications in the right breast, coarse type, are again seen. No suspicious masses, clustered microcalcifications, or regions of architectural distortion are identified. IMPRESSION: Benign findings RECOMMENDATION: Routine annual screening unless otherwise clinically indicated. BIRADS CATEGORY 2: Benign findings STANDARD QUALIFYING STATEMENTS: 1. This examination was reviewed with the aid of Computer-Aided Detection (CAD). 2. A negative or benign imaging report should not preclude biopsy if clinically suspicious findings are present. 3. Dense breasts may obscure an underlying neoplasm. 4. This examination was reviewed without the aid of 3D breast imaging (tomosynthesis).
== END 2018-07-08 11:42 | disposition home or self-care (01) ==
LOC: DI.N 11:41
DX: Z12.31 Encounter for screening mammogram for malignant neoplasm of breast (principal)
CPT/HCPCS: 77067

== ENCOUNTER 2018-07-28 08:00 | Outpatient (CLI) | payer MEDICARE, OTHER ==
[2018-07-28 13:09] LABS: BASOPHILS % (AUTO) 0.6 %; EOSINOPHILS # (AUTO) 0.1 10^3/uL (0.0-0.7); EOSINOPHILS % (AUTO) 2.6 %; HGB - HEMOGLOBIN 12.8 g/dL (12.0-16.0); LYMPHOCYTES # (AUTO) 1.2 10^3/uL (1.5-3.5); LYMPHOCYTES % (AUTO) 21.9 %; MEAN CORPUSCULAR HEMOGLOBIN 30.5 pg (27.0-31.0); MEAN CORPUSCULAR HGB CONC 34.3 g/dL (32.0-36.0); MEAN CORPUSCULAR VOLUME 88.8 fL (81.0-99.0); MEAN PLATELET VOLUME 8.4 fL (7.9-10.8); MONOCYTES # (AUTO) 0.4 10^3/uL (0.0-1.0); MONOCYTES % (AUTO) 6.7 %; NEUTROPHILS # (AUTO) 3.8 10^3/uL (1.5-6.6); NEUTROPHILS % (AUTO) 68.2 %; PLT - PLATELET COUNT 215 10^3/uL (130-450); RED CELL DISTRIBUTION WIDTH 14.1 % (12.0-15.0); WHITE BLOOD COUNT 5.6 x10^3/uL (4.8-10.8)
[2018-07-28 13:36] LABS: ALBUMIN 4.1 g/dL (3.2-5.5); ALBUMIN/GLOBULIN RATIO 1.7 (1.0-2.2); ALKALINE PHOSPHATASE 27 IU/L (42-121); ALT ALANINE AMINOTRANSFERASE < 10 IU/L (10-60); AST ASPARTATE AMINOTRANSFERASE 18 IU/L (10-42); BILIRUBIN,TOTAL 0.8 mg/dL (0.2-1.0); BUN - BLOOD UREA NITROGEN 44 mg/dL (6-20); CALCIUM 8.6 mg/dL (8.5-10.3); CARBON DIOXIDE - CO2 27 mmol/L (21-32); CHLORIDE 106 mmol/L (101-111); CREATININE 1.4 mg/dL (0.4-1.0); GFR - MDRD 36 (>89); GLUCOSE 105 mg/dL (70-100); SODIUM 140 mmol/L (135-145); TOTAL PROTEIN 6.5 g/dL (6.7-8.2)
== END 2018-07-28 23:59 | disposition home or self-care (01) ==
LOC: LAB.WCP 08:00
PROVIDERS: ATTEND Family Medicine
DX: I50.32 Chronic diastolic (congestive) heart failure (principal); J44.9 Chronic obstructive pulmonary disease, unspecified; R60.9 Edema, unspecified; I48.0 Paroxysmal atrial fibrillation
CPT/HCPCS: 36415; 80053; 84443; 85025

== ENCOUNTER 2018-10-04 20:36 | Emergency (ER) | payer MEDICARE, OTHER ==
[2018-10-04] MEDS ORDERED: EPINEPHrine 1 MG/ML AMP IM STA (21:08)
--- NOTE | 2018-10-04 21:15 | ED Physician Documentation ---
<Moy Barth - Last Filed: 10/04/18 22:18> PD HPI SKIN - Stated complaint Stated Complaint: RASH/ALLERGY - Chief complaint Chief Complaint: Wound - History obtained from History obtained from: Patient, Friend - History of Present Illness Timing - onset: How many days ago (3) Timing - duration: Days Timing - details: Gradual onset Pain level max: 5 Pain level now: 4 Location: Bodywide Quality / character: Itchy, Painful, Burning, Raised, Swelling Improved by: Other (has been on 60mg of prednisone and triamcinolone cream since yesterday. States continues to worsen.) Worsened by (comment): COMMENT (nothing) Associated symptoms: No: Fever, Myalgias, Joint pain, Headache, Facial swelling, Dyspnea, Abd pain, N/V/D, Urinary sx, Other Contributing factors: Unknown (may have been exposed to shellfish) Recently seen: Clinic (dermatology and started on prednisone and triamcinolone.) Review of Systems Constitutional: denies: Fever, Chills GI: denies: Vomiting, Diarrhea Musculoskeletal: denies: Neck pain, Back pain Neurologic: denies: Headache PD PAST MEDICAL HISTORY - Past Medical History Cardiovascular: Other Respiratory: COPD Endocrine/Autoimmune: None GI: Diverticulitis Psych: Depression - Past Surgical History Past Surgical History: Yes General: Cholecystectomy, Bowel surgery Ortho: Spine surgery, 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 Cardiovascular: Pacemaker - Present Medications Home Medications: Ambulatory Orders Medication Instructions Recorded Confirmed Citalopram Hydrobromide [Celexa] 20 mg PO DAILY 01/14/14 06/15/18 Dofetilide [Tikosyn] 250 mcg PO BID 01/14/14 06/15/18 Doxazosin Mesylate [Cardura] 2 mg PO BID 01/14/14 06/15/18 Telmisartan [Micardis] 80 mg PO DAILY 01/14/14 06/15/18 Warfarin [Coumadin] 2.5 mg PO DAILY 01/14/14 06/15/18 Acetaminophen 1 tab PO Q6HR 06/15/18 06/15/18 Doxycycline Hyclate 100 mg PO BID #20 capsule 06/15/18 Hydrocodone/Acetaminophen 1 - 2 each PO Q6H PRN #14 tablet 06/15/18 [Hydrocodon-Acetaminophen 5-325] Ketoconazole 1 applic TD DAILY PRN 06/15/18 06/15/18 Metoprolol Tartrate 2 tab PO DAILY 06/15/18 06/15/18 Spironolactone 1 tab PO DAILY 06/15/18 06/15/18 hydrALAZINE [Apresoline] 1 tab PO TID 06/15/18 06/15/18 Albuterol 2.5 mg INH Q4H PRN 06/18/18 06/18/18 Albuterol Sulf [Ventolin Hfa 06/18/18 Inhaler] - Allergies Allergies/Adverse Reactions: Allergies Allergy/AdvReac Type Severity Reaction Status Date / Time aspirin Allergy Unknown Verified 10/04/18 20:42 celecoxib Allergy Unknown Verified 10/04/18 20:42 Iodinated Contrast- Oral and Allergy Anaphylaxis Verified 10/04/18 20:42 IV Dye morphine Allergy Unknown Verified 10/04/18 20:42 Penicillins Allergy Rash Verified 10/04/18 20:42 shellfish derived Allergy Unknown Verified 10/04/18 20:42 Sulfa (Sulfonamide Allergy Rash Verified 10/04/18 20:42 Antibiotics) - Social History Does the pt smoke?: No Smoking Status: Never smoker Does the pt drink ETOH?: No Does the pt have substance abuse?: No - Immunizations Immunizations are current?: Yes PD ED PE NORMAL - Vitals Vital signs reviewed: Yes - General General: Alert and oriented X 3, No acute distress, Well developed/nourished - HEENT HEENT: Moist mucous membranes - Neck Neck: Supple, no meningeal sign - Cardiac Cardiac: RRR - Respiratory Respiratory: No respiratory distress, Clear bilaterally - Abdomen Abdomen: Soft, Non tender, Non distended - Derm Derm: Warm and dry, Other (Diffuse erythematous, maculopapular exanthem. Bilateral ears are bright red and swollen.) - Neuro Neuro: Alert and oriented X 3 - Psych Psych: Normal mood, Normal affect Results - Vitals Vitals: Vital Signs - 24 hr 10/04/18 20:39 Temperature 36.7 C Heart Rate 60 Respiratory 20 Rate Blood Pressure 142/49 H O2 Saturation 98 Oxygen O2 Source Room air - Labs Labs: Laboratory Tests 10/04/18 10/04/18 10/04/18 21:20 22:20 22:20 WBC 15.7 H RBC 3.91 L Hgb 11.6 L Hct 34.9 L MCV 89.2 MCH 29.6 MCHC 33.2 RDW 14.4 Plt Count 207 MPV 7.9 Neut # (Auto) 13.4 H Lymph # (Auto) 1.2 L [place] # (Auto) 0.8 Eos # (Auto) 0.2 Baso # (Auto) 0.0 Absolute Nucleated RBC 0.00 Nucleated RBC % 0.0 ESR Whole Blood INR 2.3 H Sodium 139 Potassium 4.5 Chloride 104 Carbon Dioxide 26 Anion Gap 9.0 BUN 27 H Creatinine 1.2 H Estimated GFR (MDRD) 42 L Glucose 120 H Calcium 8.5 Total Bilirubin 0.6 AST 19 ALT 11 Alkaline Phosphatase 31 L C-Reactive Protein Total Protein 6.3 L Albumin 3.9 Globulin 2.4 Albumin/Globulin Ratio 1.6 Lipase 26 10/04/18 10/04/18 22:20 22:20 WBC RBC Hgb Hct MCV MCH MCHC RDW Plt Count MPV Neut # (Auto) Lymph # (Auto) [place] # (Auto) Eos # (Auto) Baso # (Auto) Absolute Nucleated RBC Nucleated RBC % ESR 8 Whole Blood INR Sodium Potassium Chloride Carbon Dioxide Anion Gap BUN Creatinine Estimated GFR (MDRD) Glucose Calcium Total Bilirubin AST ALT Alkaline Phosphatase C-Reactive Protein 1.7 H Total Protein Albumin Globulin Albumin/Globulin Ratio Lipase PD MEDICAL DECISION MAKING - ED course Complexity details: reviewed results, re-evaluated patient, considered differential, d/w patient, d/w family ED course: 88-year-old female with what appears to be a drug eruption. She is worsening despite 24 hours on steroids. Given a dose of IM epinephrine 0.15 mg, no change in symptoms. Given Solu-Medrol and Benadryl IV. Laboratory tests are pending. Patient signed out to Dr. Espinal awaiting repeat evaluation and further management. This document was made in part using voice recognition software. While efforts are made to proofread this document, sound alike and grammatical errors may occur. Departure - Departure Disposition: 01 Home, Self Care Clinical Impression: Drug-induced skin rash Condition: Stable Instructions: ED Drug React Allergic Follow-Up: Mehul Pereira MD [Primary Care Provider] - Cedric Lawson PA-C [Physician No Access] - Comments: Continue the prednisone and benadryl and follow up with dermatology as planned. If you are worse in the mean time follow up here. <Raúl Espinal - Last Filed: 10/04/18 23:31> PD ED PE NORMAL - Vitals Vital signs reviewed: Yes (hypertnesive ) - General General: Alert and oriented X 3, No acute distress, Well developed/nourished - HEENT HEENT: Atraumatic, PERRL, EOMI, Other (There is a solitary erythematous ulceration to the left tonsilar pillar closer to the soft pallet about 4mm in size. ) - Respiratory Respiratory: No respiratory distress - Derm Derm: Other (Diffuse erythematous, maculopapular exanthem. Bilateral ears are bright red and swollen. There is no skin sluffing. ) - Neuro Neuro: Alert and oriented X 3, No motor deficit, No sensory deficit, Normal speech Eye Opening: Spontaneous Motor: Obeys Commands Verbal: Oriented GCS Score: 15 - Psych Psych: Normal mood, Normal affect Results - Vitals Vitals: Vital Signs - 24 hr 10/04/18 20:39 Temperature 36.7 C Heart Rate 60 Respiratory 20 Rate Blood Pressure 142/49 H O2 Saturation 98 Oxygen O2 Source Room air - Labs Labs: Laboratory Tests 10/04/18 10/04/18 10/04/18 21:20 22:20 22:20 WBC 15.7 H RBC 3.91 L Hgb 11.6 L Hct 34.9 L MCV 89.2 MCH 29.6 MCHC 33.2 RDW 14.4 Plt Count 207 MPV 7.9 Neut # (Auto) 13.4 H Lymph # (Auto) 1.2 L [place] # (Auto) 0.8 Eos # (Auto) 0.2 Baso # (Auto) 0.0 Absolute Nucleated RBC 0.00 Nucleated RBC % 0.0 ESR Whole Blood INR 2.3 H Sodium 139 Potassium 4.5 Chloride 104 Carbon Dioxide 26 Anion Gap 9.0 BUN 27 H Creatinine 1.2 H Estimated GFR (MDRD) 42 L Glucose 120 H Calcium 8.5 Total Bilirubin 0.6 AST 19 ALT 11 Alkaline Phosphatase 31 L C-Reactive Protein Total Protein 6.3 L Albumin 3.9 Globulin 2.4 Albumin/Globulin Ratio 1.6 Lipase 26 10/04/18 10/04/18 22:20 22:20 WBC RBC Hgb Hct MCV MCH MCHC RDW Plt Count MPV Neut # (Auto) Lymph # (Auto) [place] # (Auto) Eos # (Auto) Baso # (Auto) Absolute Nucleated RBC Nucleated RBC % ESR 8 Whole Blood INR Sodium Potassium Chloride Carbon Dioxide Anion Gap BUN Creatinine Estimated GFR (MDRD) Glucose Calcium Total Bilirubin AST ALT Alkaline Phosphatase C-Reactive Protein 1.7 H Total Protein Albumin Globulin Albumin/Globulin Ratio Lipase PD MEDICAL DECISION MAKING - ED course Complexity details: reviewed old records, reviewed results, re-evaluated patient, considered differential, d/w patient, d/w family ED course: 88-year-old female with what appears to be a drug eruption. She is worsening despite 24 hours on steroids. Given a dose of IM epinephrine 0.15 mg, no change in symptoms. Given Solu-Medrol and Benadryl IV. Laboratory tests are pending. Patient signed out to Dr. Espinal awaiting repeat evaluation and further management. This document was made in part using voice recognition software. While efforts are made to proofread this document, sound alike and grammatical errors may occur. 88-year-old female with what appears to be an aggressive drug eruption did not appear to respond to 2 doses of prednisone she is come to the emergency department with this red rash that is fulminant and appears aggressive. There is a single spot on the soft palate to be concerned about [place]. Here in the emergency department after administration of Solu-Medrol and Benadryl intravenously the patient does appear to improve slightly the coloring to the rash seems to have blanched slightly while she is here in the emergency department. I do not believe this is an issue with an infection and the patient's inflammatory markers are not markedly elevated. She will continue her current course of prednisone which is 60 mg/day and follow-up with the de rmatologist in 2 days time as previously planned. I have asked her to return to the emergency department should she have increasing or new symptoms.
[2018-10-04] MEDS ORDERED: methylPREDNISolone SUCCINATE 125 MG/2 ML VIAL IVP STA (21:35)
[2018-10-04] MEDS ORDERED: diphenhydrAMINE INJ 50 MG/ML VIAL IVP STA (21:35)
[2018-10-04 22:27] LABS: BASOPHILS % (AUTO) 0.1 %; EOSINOPHILS # (AUTO) 0.2 10^3/uL (0.0-0.7); EOSINOPHILS % (AUTO) 1.2 %; HGB - HEMOGLOBIN 11.6 g/dL (12.0-16.0); LYMPHOCYTES # (AUTO) 1.2 10^3/uL (1.5-3.5); LYMPHOCYTES % (AUTO) 7.9 %; MEAN CORPUSCULAR HEMOGLOBIN 29.6 pg (27.0-31.0); MEAN CORPUSCULAR HGB CONC 33.2 g/dL (32.0-36.0); MEAN CORPUSCULAR VOLUME 89.2 fL (81.0-99.0); MEAN PLATELET VOLUME 7.9 fL (7.9-10.8); MONOCYTES # (AUTO) 0.8 10^3/uL (0.0-1.0); MONOCYTES % (AUTO) 5.4 %; NEUTROPHILS # (AUTO) 13.4 10^3/uL (1.5-6.6); NEUTROPHILS % (AUTO) 85.4 %; PLT - PLATELET COUNT 207 10^3/uL (130-450); RED BLOOD COUNT 3.91 10^6/uL (4.20-5.40); RED CELL DISTRIBUTION WIDTH 14.4 % (12.0-15.0); WHITE BLOOD COUNT 15.7 x10^3/uL (4.8-10.8)
[2018-10-04 22:39] LABS: ALBUMIN 3.9 g/dL (3.2-5.5); ALBUMIN/GLOBULIN RATIO 1.6 (1.0-2.2); BILIRUBIN,TOTAL 0.6 mg/dL (0.2-1.0); CALCIUM 8.5 mg/dL (8.5-10.3); CREATININE 1.2 mg/dL (0.4-1.0); TOTAL PROTEIN 6.3 g/dL (6.7-8.2)
[2018-10-04 23:35] VITALS: BP 152/57
== END 2018-10-04 23:43 | disposition home or self-care (01) ==
LOC: ED 20:36
DX: L27.0 Generalized skin eruption due to drugs and medicaments taken internally (principal); T50.905A Adverse effect of unspecified drugs, medicaments and biological substances, initial encounter; Z95.0 Presence of cardiac pacemaker; Z79.01 Long term (current) use of anticoagulants
CPT/HCPCS: 36415; 80053; 83690; 85025; 85610; 85651; 86140; 96372; 96374; 99283; J1200

== ENCOUNTER 2018-10-12 14:34 | Inpatient (IN) | payer MEDICARE, OTHER ==
--- NOTE | 2018-10-12 15:40 | ED Physician Documentation ---
History of Present Illness - Stated complaint Stated Complaint: RLE WOUND - Chief complaint Chief Complaint: General - History obtained from History obtained from: Patient, Family (son) - History of Present Illness Timing: Other (A couple of weeks ago she was at the [facility] and studied suddenly felt flushed and warm all over. She was seen here and thought it was allergic reaction. She was put on steroids and epinephrine. Subsequently he saw the mounter who sounds like put on antibiotics for presumed bacterial infection and was scheduled for phototherapy but over the last couple of days felt too sick to go to phototherapy. She is been short of breath especially with exertion but denies orthopnea. Today acutely her legs are developing bullae and weeping.) Review of Systems Ten Systems: 10 systems reviewed and negative Constitutional: denies: Fever, Chills Cardiac: denies: Chest pain / pressure, Palpitations Respiratory: reports: Dyspnea. 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 Cardiovascular: Pacemaker - Present Medications Home Medications: Ambulatory Orders Medication Instructions Recorded Confirmed Citalopram Hydrobromide [Celexa] 20 mg PO DAILY 01/14/14 06/15/18 Dofetilide [Tikosyn] 250 mcg PO BID 01/14/14 06/15/18 Doxazosin Mesylate [Cardura] 2 mg PO BID 01/14/14 06/15/18 Telmisartan [Micardis] 80 mg PO DAILY 01/14/14 06/15/18 Warfarin [Coumadin] 2.5 mg PO DAILY 01/14/14 06/15/18 Acetaminophen 1 tab PO Q6HR 06/15/18 06/15/18 Doxycycline Hyclate 100 mg PO BID #20 capsule 06/15/18 Ketoconazole 1 applic TD DAILY PRN 06/15/18 06/15/18 Metoprolol Tartrate 2 tab PO DAILY 06/15/18 06/15/18 Spironolactone 1 tab PO DAILY 06/15/18 06/15/18 hydrALAZINE [Apresoline] 1 tab PO TID 06/15/18 06/15/18 Albuterol 2.5 mg INH Q4H PRN 06/18/18 06/18/18 Albuterol Sulf [Ventolin Hfa 06/18/18 Inhaler] Dofetilide 250 mcg PO BID 10/12/18 10/12/18 Nystatin [Nyamyc] 10/12/18 - Allergies Allergies/Adverse Reactions: Allergies Allergy/AdvReac Type Severity Reaction Status Date / Time aspirin Allergy Unknown Verified 10/12/18 14:46 celecoxib Allergy Unknown Verified 10/12/18 14:46 Iodinated Contrast- Oral and Allergy Anaphylaxis Verified 10/12/18 14:46 IV Dye morphine Allergy Unknown Verified 10/12/18 14:46 Penicillins Allergy Rash Verified 10/12/18 14:46 shellfish derived Allergy Unknown Verified 10/12/18 14:46 Sulfa (Sulfonamide Allergy Rash Verified 10/12/18 14:46 Antibiotics) - Social History Does the pt smoke?: No Smoking Status: Never smoker Does the pt drink ETOH?: No Does the pt have substance abuse?: No - Family History Family history: reports: Non contributory - Immunizations Immunizations are current?: Yes PD ED PE NORMAL - Vitals Vital signs reviewed: Yes - General General: Alert and oriented X 3, No acute distress - HEENT HEENT: PERRL, EOMI, Other (No oral lesions at this juncture) - Neck Neck: Supple, no meningeal sign, No bony TTP - Cardiac Cardiac: RRR, No murmur - Respiratory Respiratory: No respiratory distress, Clear bilaterally - Abdomen Abdomen: Soft, Non tender - Back Back: No CVA TTP, No spinal TTP - Derm Derm: Other - Extremities Extremities: No edema, No calf tenderness / cord - Neuro Neuro: Alert and oriented X 3, Normal speech - Psych Psych: Normal mood, Normal affect Results - Vitals Vitals: Vital Signs - 24 hr 10/12/18 10/12/18 14:41 18:58 Temperature 36.5 C 36.5 C Heart Rate 63 58 L Respiratory 20 20 Rate Blood Pressure 165/68 H 142/55 H O2 Saturation 98 95 Oxygen O2 Source Room air - Labs Labs: Laboratory Tests 10/12/18 10/12/18 10/12/18 15:50 15:50 15:50 WBC 26.3 H RBC 4.11 L Hgb 11.8 L Hct 36.7 L MCV 89.4 MCH 28.9 MCHC 32.3 RDW 14.2 Plt Count 252 MPV 7.8 L Neut # (Auto) Not Reportable Lymph # (Auto) Not Reportable [place] # (Auto) Not Reportable Eos # (Auto) Not Reportable Baso # (Auto) Not Reportable Absolute Nucleated RBC Not Reportable Total Counted 100 Band Neuts % (Manual) 2 Abnorm Lymph % (Manual) 0 Nucleated RBC % Not Reportable Neutrophils # (Manual) 25.0 H Lymphocytes # (Manual) 0.5 L Monocytes # (Manual) 0.5 Eosinophils # (Manual) 0.3 Basophils # (Manual) 0.0 Differential Comment MANUAL DIFFERENTIAL Manual Slide Review Indicated RBC Morph Micro Appear 1+ BELEN CELLS ESR PT 47.6 H INR 4.3 H Sodium 141 Potassium 4.0 Chloride 105 Carbon Dioxide 26 Anion Gap 10.0 BUN 36 H Creatinine 1.1 H Estimated GFR (MDRD) 47 L Glucose 176 H Lactic Acid Calcium 8.1 L Total Bilirubin 0.5 AST 19 ALT 12 Alkaline Phosphatase 41 L C-Reactive Protein B-Natriuretic Peptide Total Protein 6.3 L Albumin 3.3 Globulin 3.0 Albumin/Globulin Ratio 1.1 Lipase 28 Urine Color Urine Clarity Urine pH Ur Specific [place] Urine Protein Urine Glucose (UA) Urine Ketones Urine Occult Blood Urine Nitrite Urine Bilirubin Urine Urobilinogen Ur Leukocyte Esterase Urine RBC Urine WBC Ur Squamous Epith Cells Urine Bacteria Ur Microscopic Review Urine Culture Comments 10/12/18 10/12/18 10/12/18 15:50 15:50 15:50 WBC RBC Hgb Hct MCV MCH MCHC RDW Plt Count MPV Neut # (Auto) Lymph # (Auto) [place] # (Auto) Eos # (Auto) Baso # (Auto) Absolute Nucleated RBC Total Counted Band Neuts % (Manual) Abnorm Lymph % (Manual) Nucleated RBC % Neutrophils # (Manual) Lymphocytes # (Manual) Monocytes # (Manual) Eosinophils # (Manual) Basophils # (Manual) Differential Comment Manual Slide Review RBC Morph Micro Appear ESR 6 PT INR Sodium Potassium Chloride Carbon Dioxide Anion Gap BUN Creatinine Estimated GFR (MDRD) Glucose Lactic Acid Calcium Total Bilirubin AST ALT Alkaline Phosphatase C-Reactive Protein 8.4 H B-Natriuretic Peptide 363 H Total Protein Albumin Globulin Albumin/Globulin Ratio Lipase Urine Color Urine Clarity Urine pH Ur Specific [place] Urine Protein Urine Glucose (UA) Urine Ketones Urine Occult Blood Urine Nitrite Urine Bilirubin Urine Urobilinogen Ur Leukocyte Esterase Urine RBC Urine WBC Ur Squamous Epith Cells Urine Bacteria Ur Microscopic Review Urine Culture Comments 10/12/18 10/12/18 18:04 18:52 WBC RBC Hgb Hct MCV MCH MCHC RDW Plt Count MPV Neut # (Auto) Lymph # (Auto) [place] # (Auto) Eos # (Auto) Baso # (Auto) Absolute Nucleated RBC Total Counted Band Neuts % (Manual) Abnorm Lymph % (Manual) Nucleated RBC % Neutrophils # (Manual) Lymphocytes # (Manual) Monocytes # (Manual) Eosinophils # (Manual) Basophils # (Manual) Differential Comment Manual Slide Review RBC Morph Micro Appear ESR PT INR Sodium Potassium Chloride Carbon Dioxide Anion Gap BUN Creatinine Estimated GFR (MDRD) Glucose Lactic Acid 1.2 Calcium Total Bilirubin AST ALT Alkaline Phosphatase C-Reactive Protein B-Natriuretic Peptide Total Protein Albumin Globulin Albumin/Globulin Ratio Lipase Urine Color YELLOW Urine Clarity HAZY Urine pH 6.0 Ur Specific [place] 1.015 Urine Protein NEGATIVE Urine Glucose (UA) NEGATIVE Urine Ketones NEGATIVE Urine Occult Blood TRACE-LYSE Urine Nitrite NEGATIVE Urine Bilirubin NEGATIVE Urine Urobilinogen 0.2 (NORMAL) Ur Leukocyte Esterase SMALL H Urine RBC 0-5 Urine WBC 0-3 Ur Squamous Epith Cells MANY Squamous H Urine Bacteria Rare Ur Microscopic Review INDICATED Urine Culture Comments NOT INDICATED PD MEDICAL DECISION MAKING - ED course Complexity details: d/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 Did cxs, still pending. Consider staph scalded.) ED course: This is a 88-year-old woman with multiple comorbidities who presents with beet red legs and weeping. She is been on antibiotics and steroids, she was on doxycycline. She is a white count of 25,000. Spoke with Dr Andrade, [facility] dermatology. She felt c/w papulosquamous eruption on BUE/trunk, improving. [place] BLE were from stasis, poss infection . For BLE needs just supportive care, vaseline gauze/kerlix wraps, then topical steroids and elevation. If things continue needs outpt bx. - Consults Consults: Consulted (name) (Brian Levi, hospitalist, will see in ED 1950) Departure - Departure Disposition: [facility] DC/Xfer Clinical Impression: General weakness, Cellulitis of both lower extremities Condition: Serious
[2018-10-12 15:57] LABS: LYMPHOCYTES % (AUTO) 1.8 %; MEAN PLATELET VOLUME 7.8 fL (7.9-10.8)
[2018-10-12 16:00] LABS: BASOPHILS % (AUTO) 0.2 %; HGB - HEMOGLOBIN 11.8 g/dL (12.0-16.0); MEAN CORPUSCULAR HEMOGLOBIN 28.9 pg (27.0-31.0); MEAN CORPUSCULAR HGB CONC 32.3 g/dL (32.0-36.0); MEAN CORPUSCULAR VOLUME 89.4 fL (81.0-99.0); MONOCYTES % (AUTO) 1.5 %; NEUTROPHILS % (AUTO) 96.5 %; PLT - PLATELET COUNT 252 10^3/uL (130-450); RED BLOOD COUNT 4.11 10^6/uL (4.20-5.40); RED CELL DISTRIBUTION WIDTH 14.2 % (12.0-15.0); WHITE BLOOD COUNT 26.3 x10^3/uL (4.8-10.8)
[2018-10-12 16:02] LABS: INR 4.3 (0.8-1.2); PT - PROTHROMBIN TIME 47.6 secs (9.9-12.6)
[2018-10-12 16:09] LABS: ABNORMAL LYMPHS % (MANUAL) 0 %
[2018-10-12 16:10] LABS: ALBUMIN 3.3 g/dL (3.2-5.5); ALBUMIN/GLOBULIN RATIO 1.1 (1.0-2.2); BILIRUBIN,TOTAL 0.5 mg/dL (0.2-1.0); CALCIUM 8.1 mg/dL (8.5-10.3); CREATININE 1.1 mg/dL (0.4-1.0); TOTAL PROTEIN 6.3 g/dL (6.7-8.2)
--- NOTE | 2018-10-12 16:28 | XRAY Report ---
Reason: dyspnea Procedure Date: 10/12/2018 Accession Number: [id number] / [id number] Procedure: XR - Chest 1 View X-Ray CPT Code: 33919 FULL RESULT: EXAM: CHEST RADIOGRAPHY EXAM DATE: 10/12/2018 03:48 PM. CLINICAL HISTORY: Dyspnea. COMPARISON: CHEST 1 VIEW 06/18/2018 11:58 AM. TECHNIQUE: 1 view. FINDINGS: Heart size within normal limits for technique. Dual lead pacemaker again noted. No consolidation, pleural effusion or pneumothorax. No acute pulmonary findings are seen. IMPRESSION: Pacemaker again noted. No acute findings are seen. RADIA
[2018-10-12 16:51] LABS: BAND NEUTROPHILS % (MANUAL) 2 %; EOSINOPHILS # (MANUAL) 0.3 10^3/uL (0-0.7); LYMPHOCYTES # (MANUAL) 0.5 10^3/uL (1.5-3.5); LYMPHOCYTES % (MANUAL) 2 %; MONOCYTES # (MANUAL) 0.5 10^3/uL (0.0-1.0); NEUTROPHILS % (MANUAL) 93 %
[2018-10-12 16:52] LABS: DIFFERENTIAL COMMENT MANUAL DIFFERENTIAL
[2018-10-12] MEDS ORDERED: HYDROcod/ACETAM 5/325 MG TABLET PO STA (17:36)
[2018-10-12 18:13] LABS: BILIRUBIN,URINE NEGATIVE (NEGATIVE); GLUCOSE, URINE (UA) NEGATIVE (NEGATIVE); KETONES,URINE (UA) NEGATIVE (NEGATIVE); LEUKOCYTE ESTERASE, URINE SMALL (NEGATIVE); NITRITE,URINE NEGATIVE (NEGATIVE); OCCULT BLOOD,URINE TRACE-LYSE (NEGATIVE); PROTEIN,URINE NEGATIVE (NEGATIVE); UROBILINOGEN,URINE 0.2 (NORMAL) E.U./dL (NORMAL)
[2018-10-12 18:27] LABS: BACTERIA,URINE Rare /HPF (None Seen); CLARITY,URINE HAZY (CLEAR); RBC,URINE 0-5 /HPF (0-5); SQUAMOUS EPITHELIAL CELL,UR MANY Squamous (<= Few)
[2018-10-12] MEDS ORDERED: VANCOMYCIN INJ 2 GM in SODIUM CHLORIDE 0.9% 500 ML IV STA (18:40)
[2018-10-12] MEDS ORDERED: CLINDAMYCIN 600 MG/50 ML 50 ML IV ONE (19:50)
[2018-10-12] MEDS ORDERED: KETOCONAZOLE TD PRN (21:11)
--- NOTE | 2018-10-12 21:24 | HISTORY & PHYSICAL EXAMINATION ---
Chief Complaint - Chief Complaint Chief Complaint: worsening redness and blistering of lower extremities History of Present Illness - Admitted From Admitted From:: [facility] ED - History Obtained From Records Reviewed: yes History obtained from: patient - History of Present Illness HPI Comment/Other: Patient seen on 10/12/18 at 2015pm Patient is an 88 y/o female who presented to the the ED with worsening redness, swelling and blistering of her lower extremities. There is also skin peeling all over her body. Onset of problems with her skin started about 12 days ago. She has gone to her [employer] for a hair cut when her hairdresser noted a red rash all over her body. It was concerning for an allergic reaction. However the patient denies using any new detergent, body wash, lotion or lotion. She also denies eating anything out of the ordinary. She went to a dermatology clinic where she was prescribed prednisone and given a prescription of doxycycline. She had completed 3 of 14 days. She had also presented to the ED and was given a steroid shot in the leg. She was initially itching when her symptoms started and has been taking benadryl. She denies any itching currently. She decided to come in because overnight the redness in her legs got worse and appear beet red currently. She also has significant and extensive blistering of the lower extremity and some have ruptured. Her legs have been weeping. She denies any fever but reports chills. She denies chest pain, MESFIN, abd pain, nausea or vomiting. In the ED she was found to have a WBC of 26. 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 father: from pneumonia Living arrangement: At home Living Situation: Alone Social History Notes: Lives alone. Has 3 sons. One lives in [facility], the other in [facility] and another in [place]. She is independent of activities of daily living. She can walk on her own and uses a walker sometimes as well. She drives - Substance History Use: Uses substance without health or social issues: NONE - POLST Patient has POLST: No POLST Status: DNR Meds/Allgy - Home Medications Home Medications: Ambulatory Orders Medication Instructions Recorded Confirmed Citalopram Hydrobromide [Celexa] 20 mg PO DAILY 01/14/14 06/15/18 Dofetilide [Tikosyn] 250 mcg PO BID 01/14/14 06/15/18 Doxazosin Mesylate [Cardura] 2 mg PO BID 01/14/14 06/15/18 Telmisartan [Micardis] 80 mg PO DAILY 01/14/14 06/15/18 Warfarin [Coumadin] 2.5 mg PO DAILY 01/14/14 06/15/18 Acetaminophen 1 tab PO Q6HR 06/15/18 06/15/18 Doxycycline Hyclate 100 mg PO BID #20 capsule 06/15/18 Ketoconazole 1 applic TD DAILY PRN 06/15/18 06/15/18 Metoprolol Tartrate 2 tab PO DAILY 06/15/18 06/15/18 Spironolactone 1 tab PO DAILY 06/15/18 06/15/18 hydrALAZINE [Apresoline] 1 tab PO TID 06/15/18 06/15/18 Albuterol 2.5 mg INH Q4H PRN 06/18/18 06/18/18 Albuterol Sulf [Ventolin Hfa 06/18/18 Inhaler] Dofetilide 250 mcg PO BID 10/12/18 10/12/18 Nystatin [Nyamyc] 10/12/18 - Allergies Allergies/Adverse Reactions: Allergies Allergy/AdvReac Type Severity Reaction Status Date / Time aspirin Allergy Unknown Verified 10/12/18 14:46 celecoxib Allergy Unknown Verified 10/12/18 14:46 Iodinated Contrast- Oral and Allergy Anaphylaxis Verified 10/12/18 14:46 IV Dye morphine Allergy Unknown Verified 10/12/18 14:46 Penicillins Allergy Rash Verified 10/12/18 14:46 shellfish derived Allergy Unknown Verified 10/12/18 14:46 Sulfa (Sulfonamide Allergy Rash Verified 10/12/18 14:46 Antibiotics) Review of Systems - Constitutional Constitutional: reports: Chills. denies: Fever, Weakness, Diaphoresis, Night sweats - Eyes Eyes: denies: Blurred vision, Vision loss, Dipolpia - Ears, Nose & Throat Ears, Nose & Throat: denies: Vertigo, Nasal pain, Nasal discharge, Sore throat - Cardiovascular Cariovascular: reports: Edema. denies: Irregular heart rate, Palpitations, Chest pain, Lightheadedness, Syncope - Respiratory Respiratory: denies: Cough, Wheezing, SOB at rest, SOB with exertion - Gastrointestinal Gastrointestinal: reports: Diarrhea. denies: Abdominal pain, Abdominal distention, Constipation, Nausea, Vomiting - Genitourinary Genitourinary: denies: Dysuria, Frequency, Urgency, Hematuria - Musculoskeletal Musculoskeletal: denies: Muscle aches, Stiffness, Joint pain - Integumentary Integumentary: reports: Rash (extensive rash all over body), Pruritis (improving) - Neurological Neurological: denies: Headache, Dizziness, Abnormal gait - Psychiatric Psychiatric: reports: Depression - Hematologic/Lymphatic Hematologic/Lymphatic: reports: Bruising Prior Level of Functionality: Lives alone Has 3 sons. One lives in [facility], the other in [facility] and another in [place]. She is independent of activities of daily living. She can walk on her own and uses a walker sometimes as well. She drives Exam - Vital Signs Reviewed Vital Signs: Yes Vital Signs: Vital Signs x48h Temp Pulse Resp BP Pulse Ox 10/12/18 18:58 36.5 C 58 L 20 142/55 H 95 10/12/18 14:41 36.5 C 63 20 165/68 H 98 - Physical Exam General Appearance: positive: No acute distress, Alert Eyes Bilateral: positive: Normal inspection, PERRL, EOMI. negative: No scleral icterus ENT: positive: ENT inspection nml, Pharynx nml, No signs of dehydration Neck: positive: Nml inspection, No JVD, Trachea midline Respiratory: positive: Chest non-tender, No respiratory distress. negative: Wheezes, Rales, Rhonchi Cardiovascular: positive: Regular rate & rhythm. negative: Tachycardia Abdomen: positive: Non-tender, Nml bowel sounds, No distention. negative: Guarding, Rebound Back: positive: Nml inspection Skin: positive: Warm, Skin rash (Extensive skin peeling all over body). negative: Diaphoresis Extremities: positive: Pedal edema, Other (Legs appear beet red. Extensive blistering of bilaterall lower extremities. Some blisters are ruptured) Neurologic/Psychiatric: positive: Oriented x3 Sepsis Event Note (H) - Evaluation Current Stage of Sepsis: Sepsis Possible source of Sepsis: positive: Skin/soft tissue - Sepsis Criteria Sepsis Criteria: WBC count greater than 10% bands Conclusion/Plan - Problem List (1) Sepsis Conclusion/Plan: 2/2 bilateral lower extremity cellulitis Patient on vancomycin and clindamycin Blood cultures pending Qualifiers: Sepsis type: sepsis due to unspecified organism Qualified Code(s): A41.9 - Sepsis, unspecified organism (2) Cellulitis of both lower extremities Conclusion/Plan: Suspect staph or strep infection Patient on vancomycin and clindamycin The BURN department at [facility] was contacted and photos of lower extremities were reviewed They do not think it is Zbigniew's Sabino or Staph Scalded Skin Syndrome Recommendation is to treat infection. Also that patient will need to follow up with dermatology later Wound care consulted for management of blisters (3) Atrial fibrillation Conclusion/Plan: Patient is on tikosyn and metoprolol Will continue Coumadin currently on hold because INR is 4.3 Monitoring INR daily Qualifiers: Atrial fibrillation type: chronic Qualified Code(s): I48.2 - Chronic atrial fibrillation (4) Supratherapeutic INR Conclusion/Plan: ?2/2 doxycyxline. Coumadin on hold. Monitoring INR daily (5) Congestive heart disease Conclusion/Plan: Not in exacerbation currently Ejection fraction not known at the moment Continue telmesartan, spironolactone and lasix Creatinine is at baseline. Will monitor Patient also has a pacemaker Qualifiers: Heart failure type: unspecified Heart failure chronicity: chronic Qualified Code(s): I50.9 - Heart failure, unspecified (6) Hypertension Conclusion/Plan: On metoprolol and cardura Qualifiers: Hypertension type: essential hypertension Qualified Code(s): I10 - Essential (primary) hypertension (7) Depression Conclusion/Plan: On citalopram (8) Insomnia Conclusion/Plan: Ambien prescribed Qualifiers: Insomnia type: unspecified Qualified Code(s): G47.00 - Insomnia, unspecified - Lab Results Fish Bones: 10/12/18 15:50 10/12/18 15:50 Core Measures - Anticipated LOS I expect patient to be DC'd or transferred within 96 hours.: Yes - DVT/VTE - Prophylaxis VTE/DVT Device ordered at admit?: No Not Ordered - Medical Reason: Contraindicated VTE/DVT Prophylaxis med ordered at admit?: No Not Ordered - Medical Reason: Not indicated
[2018-10-12] MEDS ORDERED: VANCOMYCIN PER PHARMACY 0.001 GM in SODIUM CHLORIDE 0.9% 250 ML IV PRN (22:00)
[2018-10-13] MEDS ORDERED: CLINDAMYCIN 600 MG/50 ML 50 ML IV SCH
[2018-10-13] MEDS: ZOLPIDEM 5 MG TABLET PO PRN ×2 (00:28→21:44)
[2018-10-13] MEDS: SODIUM CHLORIDE FLUSH 0.9% 10 ML SYRINGE IVP SCH ×3 (01:13→16:06)
[2018-10-13] MEDS: CLINDAMYCIN 600 MG/50 ML 50 ML IV SCH ×4 (03:16→22:32)
[2018-10-13] MEDS: SODIUM CHLORIDE FLUSH 0.9% 10 ML SYRINGE IVP PRN ×2 (03:16→20:42)
[2018-10-13 06:30] LABS: BASOPHILS % (AUTO) 0.1 %; EOSINOPHILS % (AUTO) 0.1 %; HGB - HEMOGLOBIN 10.6 g/dL (12.0-16.0); LYMPHOCYTES # (AUTO) 0.8 10^3/uL (1.5-3.5); LYMPHOCYTES % (AUTO) 3.6 %; MEAN CORPUSCULAR HEMOGLOBIN 29.4 pg (27.0-31.0); MEAN CORPUSCULAR HGB CONC 32.7 g/dL (32.0-36.0); MEAN CORPUSCULAR VOLUME 89.8 fL (81.0-99.0); MEAN PLATELET VOLUME 8.1 fL (7.9-10.8); MONOCYTES # (AUTO) 0.6 10^3/uL (0.0-1.0); MONOCYTES % (AUTO) 2.8 %; NEUTROPHILS # (AUTO) 21.2 10^3/uL (1.5-6.6); NEUTROPHILS % (AUTO) 93.4 %; PLT - PLATELET COUNT 217 10^3/uL (130-450); RED BLOOD COUNT 3.61 10^6/uL (4.20-5.40); RED CELL DISTRIBUTION WIDTH 14.6 % (12.0-15.0); WHITE BLOOD COUNT 22.7 x10^3/uL (4.8-10.8)
[2018-10-13 06:38] LABS: PT - PROTHROMBIN TIME 62.3 secs (9.9-12.6)
[2018-10-13 06:43] LABS: CALCIUM 7.5 mg/dL (8.5-10.3)
[2018-10-13 06:44] LABS: INR 5.6 (0.8-1.2)
[2018-10-13] MEDS ORDERED: hydrALAZINE 25 MG TABLET PO SCH (07:00)
[2018-10-13] MEDS ORDERED: CHERRY SYRUP 10 ML UDC PO SCH (07:24)
[2018-10-13] MEDS ORDERED: PHYTONADIONE 10 MG/ML AMP PO SCH (07:24)
[2018-10-13] MEDS ORDERED: METOPROLOL SUCCINATE 25 MG TABLET PO SCH (09:00)
[2018-10-13] MEDS ORDERED: CITALOPRAM 10 MG TABLET PO SCH (09:00)
[2018-10-13] MEDS ORDERED: LOSARTAN 50 MG TABLET PO SCH (09:00)
[2018-10-13] MEDS ORDERED: DOXAZOSIN 1 MG TABLET PO SCH ×2 (09:00→21:00)
[2018-10-13] MEDS: SPIRONOLACTONE 25 MG TABLET PO SCH (09:42)
[2018-10-13] MEDS: CITALOPRAM 10 MG TABLET PO SCH (09:42)
[2018-10-13] MEDS: hydrALAZINE 25 MG TABLET PO SCH ×3 (09:42→21:44)
[2018-10-13] MEDS: METOPROLOL SUCCINATE 25 MG TABLET PO SCH ×2 (09:43→21:44)
[2018-10-13] MEDS: DOFETILIDE 250 MCG PO SCH ×2 (09:44→21:44)
[2018-10-13] MEDS: POLYETHYLENE GLYCOL 3350 17 GM PACKET PO SCH (09:45)
[2018-10-13] MEDS: ACETAMINOPHEN 325 MG TABLET PO PRN (10:00)
--- NOTE | 2018-10-13 14:00 | PROVIDER PROGRESS NOTE ---
Assessment/Plan - Problem List (1) Cellulitis of both lower extremities Assessment/Plan: Blood cultures x2 were drawn, results are all pending. IV vancomycin and IV clindamycin were started and will continue. Continue symptomatic care for pain or irritation. Continue wound dressing changes QOD, as advised by [facility] wound care provider, Wayne. Plan is for ordering PT, when she is not having such severe leg pain. (2) Diffuse papular rash Assessment/Plan: The exact etiology is unclear, presumably some allergic reaction. The BURN department at [facility] was contacted by the ER and photos of lower extremities were reviewed They do not think it is Zbigniew's Sabino or Staph Scalded Skin Syndrome Recommendation is to treat infection. Also that patient will need to follow up with dermatology later Continue symptomatic treatment, as above. (3) Atrial fibrillation Qualifiers: Atrial fibrillation type: chronic Qualified Code(s): I48.2 - Chronic atrial fibrillation Assessment/Plan: Heart rate is controlled. Resume daily Coumadin when INR 2-3, follow daily INR. (4) Supratherapeutic INR Assessment/Plan: This is likely related to her use of antibiotics for several weeks. Vitamin K was administered when this morning's INR was greater than 5. Follow INR daily. Resume Coumadin when therapeutic, target INR is 2-3 (5) Chronic diastolic (congestive) heart failure Assessment/Plan: Echo was just done in Jul 2018, showing preserved LVEF and diastolic dysfunction present. She is not in a CHF exacerbation this admission. (6) Hx of essential hypertension Assessment/Plan: He BP currently is under control, even off her ARB. Continue her Metoprolol and Cardura. (7) Depression Assessment/Plan: Continue her home med. (8) Insomnia Qualifiers: Insomnia type: unspecified Qualified Code(s): G47.00 - Insomnia, unspecified Assessment/Plan: Continue her home med. (9) Sepsis Qualifiers: Sepsis type: sepsis due to unspecified organism Qualified Code(s): A41.9 - Sepsis, unspecified organism Assessment/Plan: Resolved. HR controlled and WBC is decreasing. - Current Meds Current Meds: Current Medications Generic Name Dose Route Start Last Admin Trade Name Freq PRN Reason Stop Dose Admin Acetaminophen 650 mg 10/12/18 20:50 10/13/18 10:00 Tylenol PO 650 mg Q4HR PRN Administration Pain 1 to 4 Citalopram Hydrobromide 20 mg 10/13/18 09:00 10/13/18 09:42 Celexa PO 20 mg DAILY BECCA Administration Hydralazine HCl 25 mg 10/13/18 08:00 10/13/18 09:42 Apresoline PO 25 mg TID BECCA Administration Clindamycin Phosphate 50 mls @ 100 mls/hr 10/13/18 04:00 10/13/18 10:20 Cleocin 600 Mg/50 Ml IV Infused Q6H BECCA Infusion Metoprolol Succinate 25 mg 10/13/18 09:00 10/13/18 09:43 Toprol Xl PO 25 mg BID BECCA Administration (Dofetilide [ 1 each 10/13/18 09:00 10/13/18 09:44 Dofetilide] 250 Mcg) PO 1 each Capsule BID BECCA Administration Polyethylene Glycol 17 gm 10/13/18 09:00 10/13/18 09:45 Miralax PO Not Given DAILY BECCA Sodium Chloride 10 ml 10/12/18 20:50 10/13/18 03:16 Normal Saline Flush 0.9% IVP 10 ml PRN PRN Administration NEEDED PER PROVIDER ORDERS Sodium Chloride 10 ml 10/13/18 01:00 10/13/18 09:45 Normal Saline Flush 0.9% IVP 10 ml 0100,[id number],1700 BECCA Administration Spironolactone 25 mg 10/13/18 09:00 10/13/18 09:42 Aldactone PO 25 mg DAILY BECCA Administration Zolpidem Tartrate 5 mg 10/12/18 20:50 10/13/18 00:28 Ambien PO 5 mg QPM PRN Administration Insomnia - Lab Result Fish Bone Diagrams: 10/13/18 05:58 10/13/18 05:58 - Additional Planning My Orders: My Active Orders 10/14/18 21:00 Doxazosin [Cardura] 2 mg PO QPM Subjective - Subjective Patient Reports: Feeling Better, Fatigue, Other (Still has redness and patchy scaling, no itching. Legs were wrapped by Wound Care MAC RN.) Objective Vital Signs: Vital Signs - 24 hr 10/12/18 10/12/18 10/12/18 14:41 18:58 22:50 Temperature 36.5 C 36.5 C 37 C Heart Rate 63 58 L Heart Rate [ 62 Radial] Respiratory 20 20 16 Rate Blood Pressure 165/68 H 142/55 H Blood Pressure 166/55 H [Left Brachial artery] Blood Pressure [Right Brachial artery] O2 Saturation 98 95 97 10/12/18 10/13/18 10/13/18 23:45 08:00 12:18 Temperature 36.6 C 36.9 C 36.6 C Heart Rate Heart Rate [ 60 66 59 L Radial] Respiratory 16 20 18 Rate Blood Pressure Blood Pressure [Left Brachial artery] Blood Pressure 141/45 H 144/48 H 110/40 L [Right Brachial artery] O2 Saturation 96 96 95 Oxygen O2 Source Room air I&O (Last 24 Hrs): Intake and Output Totals x24h 10/11/18 10/12/18 10/13/18 23:59 23:59 23:59 Intake Total 550 840 Output Total 350 Balance 550 490 General: Alert, Oriented x3 HEENT: Mucous membr. moist/pink, Other (Redness of head, neck, and various parts of her entire torso and extremities.) Neck: Supple, No JVD Neuro: Non Focal Cardiovascular: No murmurs Respiratory: No respiratory distress, Breath sounds nml Abdomen: Soft Extremities: Other (Venous stasis, 1-2+ edema, bandaged shins.) - Results Results: Laboratory Results WBC 22.7 x10^3/uL (4.8-10.8) H 10/13/18 05:58 RBC 3.61 10^6/uL (4.20-5.40) L 10/13/18 05:58 Hgb 10.6 g/dL (12.0-16.0) L 10/13/18 05:58 Hct 32.4 % (37.0-47.0) L 10/13/18 05:58 MCV 89.8 fL (81.0-99.0) 10/13/18 05:58 MCH 29.4 pg (27.0-31.0) 10/13/18 05:58 MCHC 32.7 g/dL (32.0-36.0) 10/13/18 05:58 RDW 14.6 % (12.0-15.0) 10/13/18 05:58 Plt Count 217 10^3/uL (130-450) 10/13/18 05:58 MPV 8.1 fL (7.9-10.8) 10/13/18 05:58 Neut # (Auto) 21.2 10^3/uL (1.5-6.6) H 10/13/18 05:58 Lymph # (Auto) 0.8 10^3/uL (1.5-3.5) L 10/13/18 05:58 Floyd # (Auto) 0.6 10^3/uL (0.0-1.0) 10/13/18 05:58 Eos # (Auto) 0.0 10^3/uL (0.0-0.7) 10/13/18 05:58 Baso # (Auto) 0.0 10^3/uL (0.0-0.1) 10/13/18 05:58 Absolute Nucleated RBC 0.00 x10^3/uL 10/13/18 05:58 Total Counted 100 10/12/18 15:50 Band Neuts % (Manual) 2 % (0-10) 10/12/18 15:50 Abnorm Lymph % (Manual) 0 % 10/12/18 15:50 Nucleated RBC % 0.0 /100WBC 10/13/18 05:58 Neutrophils # (Manual) 25.0 10^3/uL (1.5-6.6) H 10/12/18 15:50 Lymphocytes # (Manual) 0.5 10^3/uL (1.5-3.5) L 10/12/18 15:50 Monocytes # (Manual) 0.5 10^3/uL (0.0-1.0) 10/12/18 15:50 Eosinophils # (Manual) 0.3 10^3/uL (0-0.7) 10/12/18 15:50 Basophils # (Manual) 0.0 10^3/uL (0-0.1) 10/12/18 15:50 Differential Comment MANUAL DIFFERENTIAL 10/12/18 15:50 Manual Slide Review Indicated 10/12/18 15:50 RBC Morph Micro Appear 1+ ANISOCYTOSIS (NORMAL) 1+ HYPOCHROMASIA (NORMAL) 1+ OVALOCYTES (NORMAL) 1+ BELEN CELLS (NORMAL) 10/12/18 15:50 RBC Morph Micro Appear 1+ ANISOCYTOSIS (NORMAL) 1+ HYPOCHROMASIA (NORMAL) 1+ OVALOCYTES (NORMAL) 1+ BELEN CELLS (NORMAL) 10/12/18 15:50 RBC Morph Micro Appear 1+ ANISOCYTOSIS (NORMAL) 1+ HYPOCHROMASIA (NORMAL) 1+ OVALOCYTES (NORMAL) 1+ BELEN CELLS (NORMAL) 10/12/18 15:50 RBC Morph Micro Appear 1+ ANISOCYTOSIS (NORMAL) 1+ HYPOCHROMASIA (NORMAL) 1+ OVALOCYTES (NORMAL) 1+ BELEN CELLS (NORMAL) 10/12/18 15:50 ESR 6 mm/Hr (0-30) 10/12/18 15:50 PT 62.3 secs (9.9-12.6) H 10/13/18 05:58 INR 5.6 (0.8-1.2) H* 10/13/18 05:58 Sodium 143 mmol/L (135-145) 10/13/18 05:58 Potassium 3.9 mmol/L (3.5-5.0) 10/13/18 05:58 Chloride 107 mmol/L (101-111) 10/13/18 05:58 Carbon Dioxide 25 mmol/L (21-32) 10/13/18 05:58 Anion Gap 11.0 (6-13) 10/13/18 05:58 BUN 30 mg/dL (6-20) H 10/13/18 05:58 Creatinine 1.0 mg/dL (0.4-1.0) 10/13/18 05:58 Estimated GFR (MDRD) 52 (>89) L 10/13/18 05:58 Glucose 115 mg/dL (70-100) H 10/13/18 05:58 Lactic Acid 1.2 mmol/L (0.5-2.2) 10/12/18 18:52 Calcium 7.5 mg/dL (8.5-10.3) L 10/13/18 05:58 Total Bilirubin 0.5 mg/dL (0.2-1.0) 10/12/18 15:50 AST 19 IU/L (10-42) 10/12/18 15:50 ALT 12 IU/L (10-60) 10/12/18 15:50 Alkaline Phosphatase 41 IU/L (42-121) L 10/12/18 15:50 C-Reactive Protein 8.4 mg/dL (0-1.0) H 10/12/18 15:50 B-Natriuretic Peptide 363 pg/mL (5-100) H 10/12/18 15:50 Total Protein 6.3 g/dL (6.7-8.2) L 10/12/18 15:50 Albumin 3.3 g/dL (3.2-5.5) 10/12/18 15:50 Globulin 3.0 g/dL (2.1-4.2) 10/12/18 15:50 Albumin/Globulin Ratio 1.1 (1.0-2.2) 10/12/18 15:50 Lipase 28 U/L (22-51) 10/12/18 15:50 Urine Color YELLOW 10/12/18 18:04 Urine Clarity HAZY (CLEAR) 10/12/18 18:04 Urine pH 6.0 PH (5.0-7.5) 10/12/18 18:04 Ur Specific [place] 1.015 (1.002-1.030) 10/12/18 18:04 Urine Protein NEGATIVE mg/dL (NEGATIVE) 10/12/18 18:04 Urine Glucose (UA) NEGATIVE mg/dL (NEGATIVE) 10/12/18 18:04 Urine Ketones NEGATIVE mg/dL (NEGATIVE) 10/12/18 18:04 Urine Occult Blood TRACE-LYSE (NEGATIVE) 10/12/18 18:04 Urine Nitrite NEGATIVE (NEGATIVE) 10/12/18 18:04 Urine Bilirubin NEGATIVE (NEGATIVE) 10/12/18 18:04 Urine Urobilinogen 0.2 (NORMAL) E.U./dL (NORMAL) 10/12/18 18:04 Ur Leukocyte Esterase SMALL (NEGATIVE) H 10/12/18 18:04 Urine RBC 0-5 /HPF (0-5) 10/12/18 18:04 Urine WBC 0-3 /HPF (0-5) 10/12/18 18:04 Ur Squamous Epith Cells MANY Squamous (<= Few) H 10/12/18 18:04 Urine Bacteria Rare /HPF (None Seen) 10/12/18 18:04 Ur Microscopic Review INDICATED 10/12/18 18:04 Urine Culture Comments NOT INDICATED 10/12/18 18:04 Sepsis Event Note (H) - Evaluation Current Stage of Sepsis: Sepsis Possible source of Sepsis: positive: Skin/soft tissue - Sepsis Criteria Sepsis Criteria: WBC count greater than 10% bands
[2018-10-13] MEDS ORDERED: VANCOMYCIN INJ 1 GM in SODIUM CHLORIDE 0.9% 250 ML IV SCH (18:00)
[2018-10-14] MEDS: SODIUM CHLORIDE FLUSH 0.9% 10 ML SYRINGE IVP SCH ×3 (01:15→16:23)
[2018-10-14] MEDS: SODIUM CHLORIDE FLUSH 0.9% 10 ML SYRINGE IVP PRN (03:42)
[2018-10-14] MEDS: CLINDAMYCIN 600 MG/50 ML 50 ML IV SCH ×4 (03:42→22:00)
[2018-10-14 05:53] LABS: BASOPHILS % (AUTO) 0.2 %; EOSINOPHILS # (AUTO) 0.6 10^3/uL (0.0-0.7); EOSINOPHILS % (AUTO) 3.1 %; HGB - HEMOGLOBIN 11.1 g/dL (12.0-16.0); LYMPHOCYTES # (AUTO) 0.8 10^3/uL (1.5-3.5); LYMPHOCYTES % (AUTO) 4.3 %; MEAN CORPUSCULAR HEMOGLOBIN 29.6 pg (27.0-31.0); MEAN CORPUSCULAR HGB CONC 33.3 g/dL (32.0-36.0); MEAN CORPUSCULAR VOLUME 88.7 fL (81.0-99.0); MEAN PLATELET VOLUME 7.8 fL (7.9-10.8); MONOCYTES # (AUTO) 0.7 10^3/uL (0.0-1.0); MONOCYTES % (AUTO) 3.6 %; NEUTROPHILS # (AUTO) 17.3 10^3/uL (1.5-6.6); NEUTROPHILS % (AUTO) 88.8 %; PLT - PLATELET COUNT 224 10^3/uL (130-450); RED BLOOD COUNT 3.76 10^6/uL (4.20-5.40); RED CELL DISTRIBUTION WIDTH 14.4 % (12.0-15.0); WHITE BLOOD COUNT 19.5 x10^3/uL (4.8-10.8)
[2018-10-14 05:55] LABS: INR 1.6 (0.8-1.2); PT - PROTHROMBIN TIME 18.2 secs (9.9-12.6)
[2018-10-14 05:59] LABS: CALCIUM 7.4 mg/dL (8.5-10.3); CREATININE 1.2 mg/dL (0.4-1.0)
[2018-10-14] MEDS: hydrALAZINE 25 MG TABLET PO SCH ×2 (06:41→21:40)
[2018-10-14] MEDS: CITALOPRAM 10 MG TABLET PO SCH (09:24)
[2018-10-14] MEDS: SPIRONOLACTONE 25 MG TABLET PO SCH (09:24)
[2018-10-14] MEDS: METOPROLOL SUCCINATE 25 MG TABLET PO SCH ×2 (09:24→21:40)
[2018-10-14] MEDS: DOFETILIDE 250 MCG PO SCH ×2 (09:25→21:40)
[2018-10-14] MEDS: POLYETHYLENE GLYCOL 3350 17 GM PACKET PO SCH (09:26)
[2018-10-14] MEDS: ACETAMINOPHEN 325 MG TABLET PO PRN (10:35)
[2018-10-14] MEDS ORDERED: ONDANSETRON 4 MG/2 ML VIAL IVP PRN (13:20)
--- NOTE | 2018-10-14 14:53 | PROVIDER PROGRESS NOTE ---
Subjective - Prog Note Date Prog Note Date: 10/14/18 Prog Note Time: 14:46 - Subjective Subjective: she feels like body rash was better but today, triceps skin area of right arm worse. Poor IV access. Current Medications - Current Medications Current Medications: Active Medications Acetaminophen (Tylenol) 650 mg PO Q4HR PRN PRN Reason: Pain 1 to 4 Last Admin: 10/14/18 10:35 Dose: 650 mg Albuterol () 2.5 mg INH RTQ4H PRN PRN Reason: Wheezing Citalopram Hydrobromide (Celexa) 20 mg PO DAILY [facility] Last Admin: 10/14/18 09:24 Dose: 20 mg Doxazosin Mesylate (Cardura) 2 mg PO QPM [facility] Hydralazine HCl (Apresoline) 25 mg PO TID [facility] Clindamycin Phosphate (Cleocin 600 Mg/50 Ml) 50 mls @ 100 mls/hr IV Q6H [facility] Last Infusion: 10/14/18 12:03 Dose: Infused Vancomycin HCl 1 gm/ Sodium (Chloride) 250 mls @ 167 mls/hr IV Q24H [facility] Metoprolol Succinate (Toprol Xl) 25 mg PO BID [facility] Last Admin: 10/14/18 09:24 Dose: 25 mg Non-Formulary Medication (Ketoconazole [Ketoconazole]) 1 applic TD DAILY PRN PRN Reason: Diaper Rash Ondansetron HCl (Zofran Inj) 4 mg IVP Q6HR PRN PRN Reason: Nausea / Vomiting Ondansetron HCl (Zofran Odt) 4 mg TL Q6HR PRN PRN Reason: Nausea / Vomiting (Dofetilide [ Dofetilide] 250 Mcg) Capsule 1 each PO BID [facility] Last Admin: 10/14/18 09:25 Dose: 1 each Polyethylene Glycol (Miralax) 17 gm PO DAILY [facility] Last Admin: 10/14/18 09:26 Dose: Not Given Sodium Chloride (Normal Saline Flush 0.9%) 10 ml IVP PRN PRN PRN Reason: NEEDED PER PROVIDER ORDERS Last Admin: 10/14/18 03:42 Dose: 10 ml Sodium Chloride (Normal Saline Flush 0.9%) 10 ml IVP 0100,0900,1700 [facility] Last Admin: 10/14/18 09:26 Dose: 10 ml Spironolactone (Aldactone) 25 mg PO DAILY [facility] Last Admin: 10/14/18 09:24 Dose: 25 mg Zolpidem Tartrate (Ambien) 5 mg PO QPM PRN PRN Reason: Insomnia Last Admin: 10/13/18 21:44 Dose: 5 mg Telmisartan [Micardis] 80 mg PO DAILY 01/14/14 Acetaminophen 1 tab PO Q6HR 06/15/18 Ketoconazole 1 applic TOP BID PRN 06/15/18 Spironolactone 25 mg PO DAILY 06/15/18 Albuterol 2.5 mg INH Q4H PRN 06/18/18 Albuterol Sulf [Ventolin Hfa Inhaler] 2 puffs INH Q4H PRN 06/18/18 Dofetilide 250 mcg PO BID 10/12/18 Citalopram Hydrobromide [Citalopram HBr] 20 mg PO DAILY 10/13/18 Doxazosin Mesylate 2 mg PO QPM 10/13/18 Doxycycline Hyclate 100 mg PO [id number] 10/13/18 Hydralazine HCl 25 mg PO TID 10/13/18 Ivermectin 18 mg PO ONCE 10/13/18 Metoprolol Succinate 25 mg PO BID 10/13/18 Mupirocin 2% Oint [Bactroban 2% Oint] 1 applic TOP BID 10/13/18 Nystatin 1 applic TOP BID PRN 10/13/18 Triamcinolone 0.1% Oint [Kenalog 0.1% Oint] 1 applic TOP BID PRN 10/13/18 Warfarin Sodium 1.25 mg PO MOWEFR@0900 10/13/18 Warfarin Sodium 2.5 mg PO SUTUTHSA@0900 10/13/18 predniSONE [Deltasone] 80 mg PO ONCE 10/13/18 Objective - Vital Signs/Intake & Output Reviewed Vital Signs: Yes Vital Signs: Vital Signs x48h Temp Pulse Pulse Resp BP BP Pulse Ox 10/14/18 14:41 36.5 C 62 18 108/45 L 95 10/14/18 08:35 37.5 C 62 22 128/42 L 94 10/14/18 07:45 82 16 Intake & Output: Intake & Output 10/11/18 10/12/18 10/13/18 10/14/18 23:59 23:59 23:59 23:59 Intake Total 550 2019 1100 Output Total 850 525 Balance 550 1170 575 - Objective General Appearance: positive: Alert, Mild distress (she is so weak that getting up to shower has wiped her out. just getting out of chair can't be done by herself.) Eyes Bilateral: positive: PERRL - Lab Results Fish Bones: 10/14/18 05:38 10/14/18 05:38 Other Labs: Lab Results x24hrs 10/14/18 10/14/18 10/14/18 Range/Units 05:38 05:38 05:38 WBC 19.5 H (4.8-10.8) x10^3/uL RBC 3.76 L (4.20-5.40) 10^6/uL Hgb 11.1 L (12.0-16.0) g/dL Hct 33.4 L (37.0-47.0) % MCV 88.7 (81.0-99.0) fL MCH 29.6 (27.0-31.0) pg MCHC 33.3 (32.0-36.0) g/dL RDW 14.4 (12.0-15.0) % Plt Count 224 (130-450) 10^3/uL MPV 7.8 L (7.9-10.8) fL Neut # (Auto) 17.3 H (1.5-6.6) 10^3/uL Lymph # (Auto) 0.8 L (1.5-3.5) 10^3/uL [place] # (Auto) 0.7 (0.0-1.0) 10^3/uL Eos # (Auto) 0.6 (0.0-0.7) 10^3/uL Baso # (Auto) 0.0 (0.0-0.1) 10^3/uL Absolute Nucleated RBC 0.00 x10^3/uL Nucleated RBC % 0.0 /100WBC PT 18.2 H (9.9-12.6) secs INR 1.6 H (0.8-1.2) Sodium 142 (135-145) mmol/L Potassium 4.1 (3.5-5.0) mmol/L Chloride 106 (101-111) mmol/L Carbon Dioxide 24 (21-32) mmol/L Anion Gap 12.0 (6-13) BUN 31 H (6-20) mg/dL Creatinine 1.2 H (0.4-1.0) mg/dL Estimated GFR (MDRD) 42 L (>89) Glucose 102 H (70-100) mg/dL Calcium 7.4 L (8.5-10.3) mg/dL ABX Reporting Has patient been on IV antibiotics over the past 48 hours?: Yes Sepsis Event Note (H) - Evaluation Current Stage of Sepsis: Ruled out Possible source of Sepsis: positive: Skin/soft tissue - Sepsis Criteria Sepsis Criteria: WBC count greater than 10% bands Assessment/Plan - Problem List (1) Cellulitis of both lower extremities Impression: Blood cultures x2 were drawn, and she has negative results at 24 hours. IV vancomycin and IV clindamycin were started and will continue. Day # 3 Continue symptomatic care for pain or irritation. Continue wound dressing changes QOD, as advised by [facility] wound care provider, Wayne. She is going to try to get to Q3days for ease of Home Health Scheduling but this woman is so weak, I think she will need SNF. Son has been at the bedside and he agrees but she is reluctant. Plan is for ordering PT, when she is not having such severe leg pain. (2) Diffuse papular rash Assessment/Plan: The exact etiology is unclear, presumably some allergic reaction. 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 The differential diagnosis for that would be arthropod reaction, contact dermatitis, or eczematoid skin disease. Least likely was a drug reaction. She is on Tikosyn which is a sulfa derivative. But again, it is not felt to be a drug reaction. After October 03, she was put on steroids. She was also put on ivermectin and permethrin thinking that it was an arthropod attack. She seemed to improve and was better, but when she returned in follow-up she remarked that her legs were now quite painful and she had developed a blistering reaction. So she was put on abx for Staph, doxycycline. Told to come back and next thing, she was in the ER. The BURN department at [facility] was contacted by the ER and photos of lower extremities were reviewed They do not think it is Zbigniew's Sabino or Staph Scalded Skin Syndrome Recommendation is to treat infection. Also that patient will need to follow up with dermatology later Continue symptomatic treatment, as above. (3) Atrial fibrillation Qualifiers: Atrial fibrillation type: chronic Qualified Code(s): I48.2 - Chronic atrial fibrillation Assessment/Plan: Heart rate is controlled. Resume daily Coumadin when INR 2-3, follow daily INR. She is INR 1.6 today, resume coumadin. (4) Supratherapeutic INR Assessment/Plan: This is likely related to her use of antibiotics for several weeks. Vitamin K was administered 10/13 when morning's INR was greater than 5. Follow INR daily. Resume Coumadin when therapeutic, target INR is 2-3 Today she is 1.6 so will resume. (5) JARED Assessment/Plan: Her creat has come up to 1.2. She has poor IV access and skin is edematous in forearms. I suspect low BP and some mild intravolume depletion from leg oozing is responsible. Will watch. If worsens, get PICC or IJ and give fluids that way. (6) Chronic diastolic (congestive) heart failure Assessment/Plan: Echo was just done in Jul 2018, showing preserved LVEF and diastolic dysfunction present. She is not in a CHF exacerbation this admission. (7) Hx of essential hypertension Assessment/Plan: She was on micardis, metoprolol, spironolactone,and doxasozin. Today she is 108 systolic and I will write for parameters to hold for systolic <110. (8) Depression Assessment/Plan: Continue her home med. (9) Insomnia Qualifiers: Insomnia type: unspecified Qualified Code(s): G47.00 - Insomnia, unspec ified Assessment/Plan: Continue her home med. (10) Sepsis Qualifiers: Sepsis type: sepsis due to unspecified organism Qualified Code(s): A41.9 - Sepsis, unspecified organism Assessment/Plan: This provider thinks that this diagnosis is an error. The only criteria she met for sepsis was that of an elevated white cell count. She did not have fever, blood pressure changes, hypoxic, lactic acidosis. I do not think she had sepsis. HR controlled and WBC is decreasing.
[2018-10-14] MEDS: VANCOMYCIN INJ 1 GM in SODIUM CHLORIDE 0.9% 250 ML IV SCH (21:14)
[2018-10-14] MEDS: DOXAZOSIN 1 MG TABLET PO SCH (21:39)
[2018-10-15] MEDS: CLINDAMYCIN 600 MG/50 ML 50 ML IV SCH ×4 (01:56→22:09)
[2018-10-15] MEDS: SODIUM CHLORIDE FLUSH 0.9% 10 ML SYRINGE IVP SCH ×3 (02:03→17:21)
[2018-10-15] MEDS ORDERED: SODIUM CHLORIDE 0.9% 1,000 ML IV SCH (03:00)
[2018-10-15 06:16] LABS: BASOPHILS % (AUTO) 0.3 %; EOSINOPHILS # (AUTO) 0.5 10^3/uL (0.0-0.7); HGB - HEMOGLOBIN 10.1 g/dL (12.0-16.0); LYMPHOCYTES # (AUTO) 0.7 10^3/uL (1.5-3.5); LYMPHOCYTES % (AUTO) 4.7 %; MEAN CORPUSCULAR HEMOGLOBIN 29.7 pg (27.0-31.0); MEAN CORPUSCULAR HGB CONC 33.5 g/dL (32.0-36.0); MEAN CORPUSCULAR VOLUME 88.5 fL (81.0-99.0); MEAN PLATELET VOLUME 7.6 fL (7.9-10.8); MONOCYTES # (AUTO) 0.5 10^3/uL (0.0-1.0); MONOCYTES % (AUTO) 3.3 %; NEUTROPHILS % (AUTO) 88.7 %; PLT - PLATELET COUNT 196 10^3/uL (130-450); RED CELL DISTRIBUTION WIDTH 14.4 % (12.0-15.0); WHITE BLOOD COUNT 15.7 x10^3/uL (4.8-10.8)
[2018-10-15] MEDS: hydrALAZINE 25 MG TABLET PO SCH ×3 (06:18→21:49)
[2018-10-15 06:26] LABS: CALCIUM 6.9 mg/dL (8.5-10.3); CREATININE 1.3 mg/dL (0.4-1.0)
[2018-10-15 06:40] LABS: MAGNESIUM 1.7 mg/dL (1.7-2.8); PHOSPHORUS 4.2 mg/dL (2.5-4.6)
[2018-10-15 07:00] LABS: INR 1.5 (0.8-1.2); PT - PROTHROMBIN TIME 16.7 secs (9.9-12.6)
[2018-10-15] MEDS: POLYETHYLENE GLYCOL 3350 17 GM PACKET PO SCH (08:10)
[2018-10-15] MEDS: SPIRONOLACTONE 25 MG TABLET PO SCH (08:10)
[2018-10-15] MEDS: CITALOPRAM 10 MG TABLET PO SCH (08:10)
[2018-10-15] MEDS: ACETAMINOPHEN 325 MG TABLET PO PRN ×2 (08:10→20:28)
[2018-10-15] MEDS: METOPROLOL SUCCINATE 25 MG TABLET PO SCH ×2 (08:10→20:28)
[2018-10-15] MEDS: DOFETILIDE 250 MCG PO SCH ×2 (08:11→20:28)
[2018-10-15] MEDS ORDERED: MULTIVITAMIN W/IRON, MINERALS 15 ML PO SCH (10:00)
[2018-10-15] MEDS: MULTIVITAMIN W/MINERALS TABLET PO SCH (12:43)
[2018-10-15] MEDS: SACCHAROMYCES BOULARDII 250 MG CAPSULE PO SCH ×2 (12:43→17:21)
[2018-10-15] MEDS: SODIUM CHLORIDE 0.9% 1,000 ML IV SCH ×2 (12:45→20:36)
[2018-10-15] MEDS: WARFARIN 2.5 MG TABLET PO SCH (14:12)
--- NOTE | 2018-10-15 17:21 | PROVIDER PROGRESS NOTE ---
Subjective - Prog Note Date Prog Note Date: 10/15/18 Prog Note Time: 17:26 - Subjective Pt reports feeling: No change Subjective: She is very tired. But she was able to get out of bed, sitting her chair. Legs are elevated. She complains of the burning dysesthesias sharp pain of her legs. She also just feels pruritus. When she touches her body, she feels like that her fingertips are sandpaper touching her body. She continues to have a dry peeling rash all over her body. Flakes of skin litter to the floor like snowflakes. The red body rash that was all over her body and started all of this has been gradually fading. She still has spots of it on her face, scalp, intertriginous folds of her groin but it is definitely fading. Current Medications - Current Medications Current Medications: Active Medications Acetaminophen (Tylenol) 650 mg PO Q4HR PRN PRN Reason: Pain 1 to 4 Last Admin: 10/15/18 08:10 Dose: 650 mg Albuterol () 2.5 mg INH RTQ4H PRN PRN Reason: Wheezing Citalopram Hydrobromide (Celexa) 20 mg PO DAILY [facility] Last Admin: 10/15/18 08:10 Dose: 20 mg Diphenhydramine HCl (Benadryl) 25 mg PO Q4HR PRN PRN Reason: Allergy Symptoms Doxazosin Mesylate (Cardura) 2 mg PO QPM [facility] Last Admin: 10/14/18 21:39 Dose: 2 mg Hydralazine HCl (Apresoline) 25 mg PO TID [facility] Last Admin: 10/15/18 14:11 Dose: Not Given Clindamycin Phosphate (Cleocin 600 Mg/50 Ml) 50 mls @ 100 mls/hr IV Q6H [facility] Last Infusion: 10/15/18 16:37 Dose: Infused Vancomycin HCl 1 gm/ Sodium (Chloride) 250 mls @ 167 mls/hr IV Q24H [facility] Last Infusion: 10/15/18 01:17 Dose: Infused Sodium Chloride (Normal Saline 0.9%) 1,000 mls @ 100 mls/hr IV .Q10H [facility] Last Admin: 10/15/18 12:45 Dose: 100 mls/hr Metoprolol Succinate (Toprol Xl) 25 mg PO BID [facility] Last Admin: 10/15/18 08:10 Dose: 25 mg Multivitamins/Minerals (Theragran M) 1 tab PO DAILYWM [facility] Last Admin: 10/15/18 12:43 Dose: 1 tab Non-Formulary Medication (Ketoconazole [Ketoconazole]) 1 applic TD DAILY PRN PRN Reason: Diaper Rash Ondansetron HCl (Zofran Inj) 4 mg IVP Q6HR PRN PRN Reason: Nausea / Vomiting Ondansetron HCl (Zofran Odt) 4 mg TL Q6HR PRN PRN Reason: Nausea / Vomiting (Dofetilide [ Dofetilide] 250 Mcg) Capsule 1 each PO BID [facility] Last Admin: 10/15/18 08:11 Dose: 1 each Polyethylene Glycol (Miralax) 17 gm PO DAILY [facility] Last Admin: 10/15/18 08:10 Dose: 17 gm Saccharomyces Boulardii (Florastor) 250 mg PO BIDWM [facility] Last Admin: 10/15/18 17:21 Dose: 250 mg Sodium Chloride (Normal Saline Flush 0.9%) 10 ml IVP PRN PRN PRN Reason: NEEDED PER PROVIDER ORDERS Last Admin: 10/14/18 03:42 Dose: 10 ml Sodium Chloride (Normal Saline Flush 0.9%) 10 ml IVP 0100,0900,1700 [facility] Last Admin: 10/15/18 17:21 Dose: Not Given Vitamin A/Vitamin D (Vitamin A & D Ointment) 1 applic TOP PRN PRN PRN Reason: Skin Care Warfarin Sodium (Coumadin) 2.5 mg PO QDWARFARIN [facility] Last Admin: 10/15/18 14:12 Dose: 2.5 mg Zolpidem Tartrate (Ambien) 5 mg PO QPM PRN PRN Reason: Insomnia Last Admin: 10/13/18 21:44 Dose: 5 mg Telmisartan [Micardis] 80 mg PO DAILY 01/14/14 Acetaminophen 1 tab PO Q6HR 06/15/18 Ketoconazole 1 applic TOP BID PRN 06/15/18 Spironolactone 25 mg PO DAILY 06/15/18 Albuterol 2.5 mg INH Q4H PRN 06/18/18 Albuterol Sulf [Ventolin Hfa Inhaler] 2 puffs INH Q4H PRN 06/18/18 Dofetilide 250 mcg PO BID 10/12/18 Citalopram Hydrobromide [Citalopram HBr] 20 mg PO DAILY 10/13/18 Doxazosin Mesylate 2 mg PO QPM 10/13/18 Doxycycline Hyclate 100 mg PO [id number] 10/13/18 Hydralazine HCl 25 mg PO TID 10/13/18 Ivermectin 18 mg PO ONCE 10/13/18 Metoprolol Succinate 25 mg PO BID 10/13/18 Mupirocin 2% Oint [Bactroban 2% Oint] 1 applic TOP BID 10/13/18 Nystatin 1 applic TOP BID PRN 10/13/18 Triamcinolone 0.1% Oint [Kenalog 0.1% Oint] 1 applic TOP BID PRN 10/13/18 Warfarin Sodium 1.25 mg PO MOWEFR@0900 10/13/18 Warfarin Sodium 2.5 mg PO SUTUTHSA@0900 10/13/18 predniSONE [Deltasone] 80 mg PO ONCE 10/13/18 Objective - Vital Signs/Intake & Output Reviewed Vital Signs: Yes Vital Signs: Vital Signs x48h Temp Pulse Pulse Pulse Resp BP Pulse Ox 10/15/18 15:46 37.0 C 59 L 20 124/53 L 99 10/15/18 13:23 36.8 C 62 20 106/90 H 98 10/15/18 10:00 37.2 C 10/15/18 09:20 60 14 Intake & Output: Intake & Output 10/12/18 10/13/18 10/14/18 10/15/18 23:59 23:59 23:59 23:59 Intake Total 550 2020 1456.7 1435.3 Output Total 850 1426 250 Balance 550 1170 30.7 1185.3 - Objective General Appearance: positive: Alert, Mild distress (From her fatigue, emotionally because of feeling dependent on people for help, and from the burning of her legs), Other (Pale morbidly obese white female who looks her stated age) Eyes Bilateral: positive: PERRL ENT: positive: Other (She has dentures in. No ulcerations underneath the dentures. Her tongue is flat without papillae. No oral candidiasis spots. One small ulcerated area in the left buccal mucosa that is less than 5 mm large.) Neck: negative: Stiff neck, Carotid bruit Respiratory: positive: Chest non-tender. negative: Wheezes, Rales, Rhonchi Cardiovascular: positive: Irregularly irregular, Systolic murmur. negative: Gallop/S4, Friction rub Abdomen: positive: Non-tender, Nml bowel sounds, No distention Skin: positive: Other (Around her hairline on her scalp, she has a resolving red rash. She has quarter size palpable red spots that are not confluent in the skin of her inner thighs. In the groin intertriginous folds, into the mons, up into the pannus intertriginous fold she has a red dense confluent rash compatible with old and new candidiasis. On top of this red discoloration of her skin, she has diffuse flaking sheets of skin on her back, chest, forearms, legs. The skin of her lower extremities below the knees is a large sheet of skin that is . The left leg is still intact with oozing slightly. The right leg has a large chunk of skin gone.) - Lab Results Fish Bones: 10/15/18 05:55 10/15/18 05:55 Other Labs: Lab Results x24hrs 10/15/18 10/15/18 10/15/18 Range/Units 05:55 05:55 05:55 WBC (4.8-10.8) x10^3/uL RBC (4.20-5.40) 10^6/uL Hgb (12.0-16.0) g/dL Hct (37.0-47.0) % MCV (81.0-99.0) fL MCH (27.0-31.0) pg MCHC (32.0-36.0) g/dL RDW (12.0-15.0) % Plt Count (130-450) 10^3/uL MPV (7.9-10.8) fL Neut # (Auto) (1.5-6.6) 10^3/uL Lymph # (Auto) (1.5-3.5) 10^3/uL [place] # (Auto) (0.0-1.0) 10^3/uL Eos # (Auto) (0.0-0.7) 10^3/uL Baso # (Auto) (0.0-0.1) 10^3/uL Absolute Nucleated RBC x10^3/uL Nucleated RBC % /100WBC PT 16.7 H (9.9-12.6) secs INR 1.5 H (0.8-1.2) Sodium 137 (135-145) mmol/L Potassium 3.9 (3.5-5.0) mmol/L Chloride 107 (101-111) mmol/L Carbon Dioxide 22 (21-32) mmol/L Anion Gap 8.0 (6-13) BUN 34 H (6-20) mg/dL Creatinine 1.3 H (0.4-1.0) mg/dL Estimated GFR (MDRD) 39 L (>89) Glucose 111 H (70-100) mg/dL Calcium 6.9 L (8.5-10.3) mg/dL Phosphorus 4.2 (2.5-4.6) mg/dL Magnesium 1.7 (1.7-2.8) mg/dL 10/15/18 Range/Units 05:55 WBC 15.7 H (4.8-10.8) x10^3/uL RBC 3.40 L (4.20-5.40) 10^6/uL Hgb 10.1 L (12.0-16.0) g/dL Hct 30.1 L (37.0-47.0) % MCV 88.5 (81.0-99.0) fL MCH 29.7 (27.0-31.0) pg MCHC 33.5 (32.0-36.0) g/dL RDW 14.4 (12.0-15.0) % Plt Count 196 (130-450) 10^3/uL MPV 7.6 L (7.9-10.8) fL Neut # (Auto) 14.0 H (1.5-6.6) 10^3/uL Lymph # (Auto) 0.7 L (1.5-3.5) 10^3/uL [place] # (Auto) 0.5 (0.0-1.0) 10^3/uL Eos # (Auto) 0.5 (0.0-0.7) 10^3/uL Baso # (Auto) 0.0 (0.0-0.1) 10^3/uL Absolute Nucleated RBC 0.00 x10^3/uL Nucleated RBC % 0.0 /100WBC PT (9.9-12.6) secs INR (0.8-1.2) Sodium (135-145) mmol/L Potassium (3.5-5.0) mmol/L Chloride (101-111) mmol/L Carbon Dioxide (21-32) mmol/L Anion Gap (6-13) BUN (6-20) mg/dL Creatinine (0.4-1.0) mg/dL Estimated GFR (MDRD) (>89) Glucose (70-100) mg/dL Calcium (8.5-10.3) mg/dL Phosphorus (2.5-4.6) mg/dL Magnesium (1.7-2.8) mg/dL Sepsis Event Note (H) - Evaluation Current Stage of Sepsis: Ruled out Possible source of Sepsis: positive: Skin/soft tissue - Sepsis Criteria Sepsis Criteria: WBC count greater than 10% bands Assessment/Plan - Problem List (1) Cellulitis of both lower extremities Impression: Blood cultures x2 were drawn, and she has negative results at 48 hours. IV vancomycin and IV clindamycin were started and will continue. Day # 4 Continue symptomatic care for pain or irritation. Be careful of creatinine rise today on Vancomycin. Continue wound dressing changes QOD, as advised by [facility] wound care provider, Wayne. Wayne was going to try to get to Q3days dressing change for ease of Home Health Scheduling but this woman is so weak, I think she will need SNF. Wayne also feels that she has such serous drainage that she will need daily wound care. Son had been at the bedside 10/14 and he agrees but she is reluctant. Plan is for ordering PT, when she is not having such severe leg pain. (2) Diffuse papular rash Assessment/Plan: The exact etiology is unclear, presumably some allergic reaction. I spoke to her director electrical engineering, Cedric Lawson [phone] on 10/14 and updated him as well today. She was seen by him October 03 for skin biopsy after presenting with a bright red peeling diffuse body rash. 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 The differential diagnosis for that would be arthropod reaction, contact dermatitis, or eczematoid skin disease. Least likely was a drug reaction. She is on Tikosyn which is a sulfa derivative. But again, it is not felt to be a drug reaction. After October 03, she was put on steroids. She was also put on ivermectin 3 mg tabs (6 then and 6 one week later) and permethrin on 10/07/18 thinking that it was an arthropod attack. She seemed to improve and was better, but when she returned in follow- up she remarked that her legs were now quite painful and she had developed a blistering reaction of her legs. So she was put on abx for Staph, doxycycline. Told to come back and next thing, she was in the ER. The Dermatology department at [facility] was contacted by the ER and photos of lower extremities were reviewed They do not think it is Zbigniew's Sabino or Staph Scalded Skin Syndrome Recommendation is to treat infection. Also that patient will need to follow up with dermatology later Continue symptomatic treatment, as above. I spoke to dermatology again today. I sent them copies of the photos that were done yesterday. My concern is continued peeling and blistering. She is going to lose all of her skin over her lower extremities at the rate the skin is coming off. Dr. Pearce has reviewed the pictures. He feels we are on the right track. He feels that the blisters on her legs are edema related. They are not even related to chronic venous stasis dermatitis but just a simple sudden edema causing blistering of her skin. He recommends a protective ointment or dressing such as Telfa or Vaseline plus [place] wrap compression. (3) Atrial fibrillation Qualifiers: Atrial fibrillation type: chronic Qualified Code(s): I48.2 - Chronic atrial fibrillation Assessment/Plan: Heart rate is controlled. Resume daily Coumadin when INR 2-3, follow daily INR. She is INR 1.6 today, resume coumadin. (4) Supratherapeutic INR Assessment/Plan: This is likely related to her use of antibiotics for several weeks. Vitamin K was administered 10/13 when morning's INR was greater than 5. Follow INR daily. Resume Coumadin when therapeutic, target INR is 2-3 Today she is 1.5 so will resume. (5) JARED Assessment/Plan: Her creat has come up to 1.3. She has poor IV access and skin is edematous in forearms. I suspect low BP and some mild intravolume depletion from leg oozing is responsible. Will watch. She is higher today, get PICC or IJ and give fluids that way tomorrow if creat continues to rise. . (6) Chronic diastolic (congestive) heart failure Assessment/Plan: Echo was just done in Jul 2018, showing preserved LVEF and diastolic dysfunction present. She is not in a CHF exacerbation this admission. (7) Hx of essential hypertension Assessment/Plan: She was on micardis, metoprolol, spironolactone,and doxasozin. Today she is 108 systolic and I wrote for parameters to hold for systolic <110. Last night manager system rewrote to hold for systolic <130 and that is appropriate in view of creatinine. (8) Depression Assessment/Plan: Continue her home med. (9) Insomnia Qualifiers: Insomnia type: unspecified Qualified Code(s): G47.00 - Insomnia, unspecified Assessment/Plan: Continue her home med. (10) Sepsis Qualifiers: Sepsis type: sepsis due to unspecified organism Qualified Code(s): A41.9 - Sepsis, unspecified organism Assessment/Plan: This provider thinks that this diagnosis is an error. The only criteria she met for sepsis was that of an elevated white cell count. She did not have fever, blood pressure changes, hypoxic, lactic acidosis. I do not think she had sepsis. HR controlled and WBC is decreasing.
[2018-10-15] MEDS: DOXAZOSIN 1 MG TABLET PO SCH (20:28)
[2018-10-15] MEDS: VANCOMYCIN INJ 1 GM in SODIUM CHLORIDE 0.9% 250 ML IV SCH (20:36)
[2018-10-16] MEDS: ACETAMINOPHEN 325 MG TABLET PO PRN ×2 (01:22→14:15)
[2018-10-16] MEDS: CLINDAMYCIN 600 MG/50 ML 50 ML IV SCH ×4 (03:52→22:42)
[2018-10-16] MEDS: SODIUM CHLORIDE FLUSH 0.9% 10 ML SYRINGE IVP SCH ×3 (03:52→15:55)
[2018-10-16 06:50] LABS: BASOPHILS # (AUTO) 0.1 10^3/uL (0.0-0.1); BASOPHILS % (AUTO) 0.4 %; EOSINOPHILS # (AUTO) 0.5 10^3/uL (0.0-0.7); EOSINOPHILS % (AUTO) 3.7 %; HGB - HEMOGLOBIN 9.8 g/dL (12.0-16.0); LYMPHOCYTES # (AUTO) 0.7 10^3/uL (1.5-3.5); LYMPHOCYTES % (AUTO) 5.9 %; MEAN CORPUSCULAR HEMOGLOBIN 29.7 pg (27.0-31.0); MEAN CORPUSCULAR HGB CONC 33.5 g/dL (32.0-36.0); MEAN CORPUSCULAR VOLUME 88.6 fL (81.0-99.0); MEAN PLATELET VOLUME 7.4 fL (7.9-10.8); MONOCYTES # (AUTO) 0.4 10^3/uL (0.0-1.0); MONOCYTES % (AUTO) 3.5 %; NEUTROPHILS % (AUTO) 86.5 %; PLT - PLATELET COUNT 185 10^3/uL (130-450); RED BLOOD COUNT 3.31 10^6/uL (4.20-5.40); RED CELL DISTRIBUTION WIDTH 14.4 % (12.0-15.0); WHITE BLOOD COUNT 12.7 x10^3/uL (4.8-10.8)
[2018-10-16] MEDS: hydrALAZINE 25 MG TABLET PO SCH ×3 (06:53→20:45)
[2018-10-16 07:00] LABS: CALCIUM 6.7 mg/dL (8.5-10.3); CREATININE 1.3 mg/dL (0.4-1.0)
[2018-10-16] MEDS: METOPROLOL SUCCINATE 25 MG TABLET PO SCH ×2 (08:44→20:46)
[2018-10-16] MEDS: SODIUM CHLORIDE 0.9% 1,000 ML IV SCH ×2 (08:46→20:44)
[2018-10-16] MEDS: SACCHAROMYCES BOULARDII 250 MG CAPSULE PO SCH ×2 (08:46→17:14)
[2018-10-16] MEDS: A & D OINTMENT 5 GM PACKET TOP PRN ×2 (08:46→14:25)
[2018-10-16] MEDS: MULTIVITAMIN W/MINERALS TABLET PO SCH (08:46)
[2018-10-16] MEDS: CITALOPRAM 10 MG TABLET PO SCH (08:46)
[2018-10-16] MEDS: DOFETILIDE 250 MCG PO SCH ×2 (08:47→20:47)
[2018-10-16] MEDS: POLYETHYLENE GLYCOL 3350 17 GM PACKET PO SCH (08:48)
--- NOTE | 2018-10-16 14:11 | PROVIDER PROGRESS NOTE ---
Subjective - Prog Note Date Prog Note Date: 10/16/18 Prog Note Time: 14:14 - Subjective Subjective: c/o neck pain. miserable w it. No meningismus. No photophobia. No fever. The pain is going up the back of her scalp. As I massage this area and examine her, she says it actually feels good with my cool hands massaging the muscles. She is having enough oozing from her legs that the bandages are soaked. This is a second dressing change today. And the soaking is going through the material to the sheets below Current Medications - Current Medications Current Medications: Active Medications Acetaminophen (Tylenol) 650 mg PO Q4HR PRN PRN Reason: Pain 1 to 4 Last Admin: 10/16/18 14:15 Dose: 650 mg Albuterol () 2.5 mg INH RTQ4H PRN PRN Reason: Wheezing Citalopram Hydrobromide (Celexa) 20 mg PO DAILY [facility] Last Admin: 10/16/18 08:46 Dose: 20 mg Diphenhydramine HCl (Benadryl) 25 mg PO Q4HR PRN PRN Reason: Allergy Symptoms Hydralazine HCl (Apresoline) 25 mg PO BID [facility] Last Admin: 10/16/18 08:44 Dose: Not Given Clindamycin Phosphate (Cleocin 600 Mg/50 Ml) 50 mls @ 100 mls/hr IV Q6H [facility] Last Admin: 10/16/18 14:17 Dose: 100 mls/hr Vancomycin HCl 1 gm/ Sodium (Chloride) 250 mls @ 167 mls/hr IV Q24H [facility] Last Infusion: 10/15/18 22:06 Dose: Infused Sodium Chloride (Normal Saline 0.9%) 1,000 mls @ 100 mls/hr IV .Q10H [facility] Last Admin: 10/16/18 08:46 Dose: 100 mls/hr Metoprolol Succinate (Toprol Xl) 25 mg PO BID [facility] Last Admin: 10/16/18 08:44 Dose: Not Given Multivitamins/Minerals (Theragran M) 1 tab PO DAILYWM [facility] Last Admin: 10/16/18 08:46 Dose: 1 tab Non-Formulary Medication (Ketoconazole [Ketoconazole]) 1 applic TD DAILY PRN PRN Reason: Diaper Rash Ondansetron HCl (Zofran Inj) 4 mg IVP Q6HR PRN PRN Reason: Nausea / Vomiting Ondansetron HCl (Zofran Odt) 4 mg TL Q6HR PRN PRN Reason: Nausea / Vomiting (Dofetilide [ Dofetilide] 250 Mcg) Capsule 1 each PO BID [facility] Last Admin: 10/16/18 08:47 Dose: 1 each Polyethylene Glycol (Miralax) 17 gm PO DAILY [facility] Last Admin: 10/16/18 08:48 Dose: Not Given Saccharomyces Boulardii (Florastor) 250 mg PO BIDWM [facility] Last Admin: 10/16/18 08:46 Dose: 250 mg Sodium Chloride (Normal Saline Flush 0.9%) 10 ml IVP PRN PRN PRN Reason: NEEDED PER PROVIDER ORDERS Last Admin: 10/14/18 03:42 Dose: 10 ml Sodium Chloride (Normal Saline Flush 0.9%) 10 ml IVP 0100,0900,1700 [facility] Last Admin: 10/16/18 08:48 Dose: Not Given Vitamin A/Vitamin D (Vitamin A & D Ointment) 1 applic TOP PRN PRN PRN Reason: Skin Care Last Admin: 10/16/18 08:46 Dose: 1 applic Warfarin Sodium (Coumadin) 2.5 mg PO QDWARFARIN [facility] Last Admin: 10/16/18 14:17 Dose: 2.5 mg Zolpidem Tartrate (Ambien) 5 mg PO QPM PRN PRN Reason: Insomnia Last Admin: 10/13/18 21:44 Dose: 5 mg Telmisartan [Micardis] 80 mg PO DAILY 01/14/14 Acetaminophen 1 tab PO Q6HR 06/15/18 Ketoconazole 1 applic TOP BID PRN 06/15/18 Spironolactone 25 mg PO DAILY 06/15/18 Albuterol 2.5 mg INH Q4H PRN 06/18/18 Albuterol Sulf [Ventolin Hfa Inhaler] 2 puffs INH Q4H PRN 06/18/18 Dofetilide 250 mcg PO BID 10/12/18 Citalopram Hydrobromide [Citalopram HBr] 20 mg PO DAILY 10/13/18 Doxazosin Mesylate 2 mg PO QPM 10/13/18 Doxycycline Hyclate 100 mg PO [id number] 10/13/18 Hydralazine HCl 25 mg PO TID 10/13/18 Ivermectin 18 mg PO ONCE 10/13/18 Metoprolol Succinate 25 mg PO BID 10/13/18 Mupirocin 2% Oint [Bactroban 2% Oint] 1 applic TOP BID 10/13/18 Nystatin 1 applic TOP BID PRN 10/13/18 Triamcinolone 0.1% Oint [Kenalog 0.1% Oint] 1 applic TOP BID PRN 10/13/18 Warfarin Sodium 1.25 mg PO MOWEFR@0900 10/13/18 Warfarin Sodium 2.5 mg PO SUTUTHSA@0900 10/13/18 predniSONE [Deltasone] 80 mg PO ONCE 10/13/18 Objective - Vital Signs/Intake & Output Reviewed Vital Signs: Yes Vital Signs: Vital Signs x48h Temp Pulse Resp BP BP Pulse Ox 10/16/18 08:45 61 105/42 L 10/16/18 07:23 36.9 C 63 16 113/37 L 97 10/16/18 06:25 36.9 C 63 16 110/30 L 97 Intake & Output: Intake & Output 10/13/18 10/14/18 10/15/18 10/16/18 23:59 23:59 23:59 23:59 Intake Total 2020 1456.7 2848.633 1510 Output Total 850 1426 400 125 Balance 1170 30.7 2448.633 1385 - Objective General Appearance: positive: Mild distress (from neck pain), Moderate distress Eyes Bilateral: positive: PERRL, EOMI ENT: positive: Other (Same flat tongue and no rugae. Same small ulceration left buccal mucosa. Wearing dentures. No changes.) Neck: positive: No JVD. negative: Stiff neck Respiratory: positive: Chest non-tender. negative: Wheezes, Rales, Rhonchi Cardiovascular: positive: Irregularly irregular, Systolic murmur. negative: Gallop/S4, Friction rub Abdomen: positive: Non-tender, Nml bowel sounds, No distention Skin: positive: Other (She appears pale. Waking snowstorm of skin is slowing down. At least the floor is not covered in the flakes of her skin anymore. Legs are wrapped, and again the sclera serous fluid is soaking through the bandages in the dependent area onto the sheets below. This is her second dressing change.) Extremities: positive: Full ROM, Pedal edema Neurologic/Psychiatric: positive: Oriented x3, CN's nml (2-12), Motor nml, Weakness - Lab Results Fish Bones: 10/16/18 06:28 10/16/18 06:28 Other Labs: Lab Results x24hrs 10/16/18 10/16/18 10/16/18 Range/Units 06:28 06:28 06:28 WBC 12.7 H (4.8-10.8) x10^3/uL RBC 3.31 L (4.20-5.40) 10^6/uL Hgb 9.8 L (12.0-16.0) g/dL Hct 29.4 L (37.0-47.0) % MCV 88.6 (81.0-99.0) fL MCH 29.7 (27.0-31.0) pg MCHC 33.5 (32.0-36.0) g/dL RDW 14.4 (12.0-15.0) % Plt Count 185 (130-450) 10^3/uL MPV 7.4 L (7.9-10.8) fL Neut # (Auto) 11.0 H (1.5-6.6) 10^3/uL Lymph # (Auto) 0.7 L (1.5-3.5) 10^3/uL Eagle # (Auto) 0.4 (0.0-1.0) 10^3/uL Eos # (Auto) 0.5 (0.0-0.7) 10^3/uL Baso # (Auto) 0.1 (0.0-0.1) 10^3/uL Absolute Nucleated RBC 0.00 x10^3/uL Nucleated RBC % 0.0 /100WBC PT 22.0 H (9.9-12.6) secs INR 2.0 H (0.8-1.2) Sodium 139 (135-145) mmol/L Potassium 3.8 (3.5-5.0) mmol/L Chloride 109 (101-111) mmol/L Carbon Dioxide 23 (21-32) mmol/L Anion Gap 7.0 (6-13) BUN 36 H (6-20) mg/dL Creatinine 1.3 H (0.4-1.0) mg/dL Estimated GFR (MDRD) 39 L (>89) Glucose 96 (70-100) mg/dL Calcium 6.7 L (8.5-10.3) mg/dL ABX Reporting Has patient been on IV antibiotics over the past 48 hours?: Yes Sepsis Event Note (H) - Evaluation Current Stage of Sepsis: Ruled out Possible source of Sepsis: positive: Skin/soft tissue - Sepsis Criteria Sepsis Criteria: WBC count greater than 10% bands Assessment/Plan - Problem List (1) Cellulitis of both lower extremities Impression: Blood cultures x2 were drawn, and she has negative results at 48 hours. WBC continues to slowly go down. IV vancomycin and IV clindamycin were started and will continue. Day # 5. Plan for 7 days then stop. Continue symptomatic care for pain or irritation. Be careful of creatinine rise on Vancomycin. So far stable rise to 1.3 for 2 days. Continue wound dressing changes QOD, [place] [facility] [place] Wayne. Wayne was going to try to get to Q3days dressing change for ease of Home Health Scheduling but this woman is so weak, I think she will need SNF. Wayne also feels that she has such serous drainage that she will need daily wound care. Son had been at the bedside 10/14 and he agrees but she is reluctant for SNF wound care.. Plan is for ordering PT, when she is not having such severe leg pain. When she is done with her antibiotics, I think that is when we will transfer her to SNF (2) Diffuse papular rash Assessment/Plan: The exact etiology is unclear, presumably some allergic reaction. I spoke to her dopeman, Cedric Lawson [phone] on 10/14 and updated him as well today. She was seen by him October 03 for skin biopsy after presenting with a bright red peeling diffuse body rash. 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 The differential diagnosis for that would be arthropod reaction, contact dermatitis, or eczematoid skin disease. Least likely was a drug reaction. She is on Tikosyn which is a sulfa derivative. But again, it is not felt to be a drug reaction. After October 03, she was put on steroids. She was also put on ivermectin 3 mg tabs (6 then and 6 one week later) and permethrin on 10/07/18 thinking that it was an arthropod attack. She seemed to improve and was better, but when she returned in follow- up she remarked that her legs were now quite painful and she had developed a blistering reaction of her legs. So she was put on abx for Staph, doxycycline. Told to come back and next thing, she was in the ER. The Dermatology department at [place] was contacted by the ER and photos of lower extremities were reviewed They do not think it is Zbigniew's Sabino or Staph Scalded Skin Syndrome Recommendation is to treat infection. Also that patient will need to follow up with dermatology later Continue symptomatic treatment, as above. I spoke to dermatology again 10/15 and I sent them copies of the photos that were done 10/14. My concern is continued peeling and blistering. She is going to lose all of her skin over her lower extremities at the rate the skin is coming off. Dr. Pearce has reviewed the pictures. He feels we are on the right track. He feels that the blisters on her legs are edema related. They are not even related to chronic venous stasis dermatitis but just a simple sudden edema causing blistering of her skin. He recommends a protective ointment or dressing such as Telfa or Vaseline plus Davie wrap compression. (3) Atrial fibrillation Qualifiers: Atrial fibrillation type: chronic Qualified Code(s): I48.2 - Chronic atrial fibrillation Assessment/Plan: Heart rate is controlled. Resume daily Coumadin when INR 2-3, follow daily INR. She is INR 2.0 today on resumed coumadin. (4) Supratherapeutic INR Assessment/Plan: This is likely related to her use of antibiotics for several weeks. Vitamin K was administered 10/13 when morning's INR was greater than 5. Follow INR daily. Resumed Coumadin when therapeutic, target INR is 2-3 She is now 2.0 and I will hold for that day if goes >2.5 (5) JARED Assessment/Plan: Her creat has come up to 1.3. She has poor IV access and skin is edematous in forearms. I suspect low BP and some mild intravolume depletion from leg oozing is responsible. Is started 0.9 NS last night. So far tolerating it. get PICC or IJ and give fluids that way if loses IV access (6) Chronic diastolic (congestive) heart failure Assessment/Plan: Echo was just done in Jul 2018, showing preserved LVEF and diastolic dysfunction present. She is not in a CHF exacerbation this admission. (7) Hx of essential hypertension Assessment/Plan: She was on micardis, metoprolol, spironolactone,and doxasozin. 10/13 she was 108 systolic and I wrote for parameters to hold for systolic <110. 10/14 stain maker rewrote to hold for systolic <130 and that is appropriate in view of creatinine. (8) Depression Assessment/Plan: Continue her home med. (9) Insomnia Qualifiers: Insomnia type: unspecified Qualified Code(s): G47.00 - Insomnia, unspecified Assessment/Plan: Continue her home med. (10) Sepsis Qualifiers: Sepsis type: sepsis due to unspecified organism Qualified Code(s): A41.9 - Sepsis, unspecified organism Assessment/Plan: This provider thinks that this diagnosis is an error. The only criteria she met for sepsis was that of an elevated white cell count. She did not have fever, blood pressure changes, hypoxic, lactic acidosis. I do not think she had sepsis. HR controlled and WBC is decreasing.
[2018-10-16] MEDS: WARFARIN 2.5 MG TABLET PO SCH (14:17)
[2018-10-16 20:47] LABS: VANCOMYCIN,TROUGH 16.2 ug/mL (10.0-20.0)
[2018-10-16] MEDS: VANCOMYCIN INJ 1 GM in SODIUM CHLORIDE 0.9% 250 ML IV SCH (21:02)
[2018-10-16] MEDS: ZOLPIDEM 5 MG TABLET PO PRN (22:09)
[2018-10-17] MEDS: SODIUM CHLORIDE FLUSH 0.9% 10 ML SYRINGE IVP SCH ×3 (03:02→16:11)
[2018-10-17] MEDS: CLINDAMYCIN 600 MG/50 ML 50 ML IV SCH ×4 (03:38→22:17)
[2018-10-17] MEDS: SODIUM CHLORIDE 0.9% 1,000 ML IV SCH ×2 (06:52→16:11)
[2018-10-17] MEDS: diphenhydrAMINE 25 MG CAPSULE PO PRN ×2 (10:42→20:38)
[2018-10-17] MEDS: CITALOPRAM 10 MG TABLET PO SCH (10:43)
[2018-10-17] MEDS: SACCHAROMYCES BOULARDII 250 MG CAPSULE PO SCH ×2 (10:45→16:11)
[2018-10-17] MEDS: METOPROLOL SUCCINATE 25 MG TABLET PO SCH ×2 (10:48→20:23)
[2018-10-17] MEDS: MULTIVITAMIN W/MINERALS TABLET PO SCH (10:48)
[2018-10-17] MEDS: hydrALAZINE 25 MG TABLET PO SCH ×2 (10:48→20:23)
[2018-10-17] MEDS: POLYETHYLENE GLYCOL 3350 17 GM PACKET PO SCH (10:49)
[2018-10-17] MEDS: DOFETILIDE 250 MCG PO SCH ×2 (11:35→20:24)
--- NOTE | 2018-10-17 11:59 | PROVIDER PROGRESS NOTE ---
Subjective - Prog Note Date Prog Note Date: 10/17/18 Prog Note Time: 11:54 - Subjective Subjective: Tired, very weak. Again just feels limp is a little and miserable. Leg pain is much better. It is just a numb tingly sometimes slightly burning sensation. Pruritus is stable. The rash on the inside of her thighs with the red bumps and scaling skin seems to be extending distally down her legs. Current Medications - Current Medications Current Medications: Active Medications Acetaminophen (Tylenol) 650 mg PO Q4HR PRN PRN Reason: Pain 1 to 4 Last Admin: 10/16/18 14:15 Dose: 650 mg Albuterol () 2.5 mg INH RTQ4H PRN PRN Reason: Wheezing Citalopram Hydrobromide (Celexa) 20 mg PO DAILY [facility] Last Admin: 10/17/18 10:43 Dose: 20 mg Diphenhydramine HCl (Benadryl) 25 mg PO Q4HR PRN PRN Reason: Allergy Symptoms Last Admin: 10/17/18 10:42 Dose: 25 mg Hydralazine HCl (Apresoline) 25 mg PO BID [facility] Last Admin: 10/17/18 10:48 Dose: Not Given Clindamycin Phosphate (Cleocin 600 Mg/50 Ml) 50 mls @ 100 mls/hr IV Q6H [facility] Last Admin: 10/17/18 10:50 Dose: 100 mls/hr Vancomycin HCl 1 gm/ Sodium (Chloride) 250 mls @ 167 mls/hr IV Q24H [facility] Last Infusion: 10/16/18 22:40 Dose: Infused Sodium Chloride (Normal Saline 0.9%) 1,000 mls @ 100 mls/hr IV .Q10H [facility] Last Admin: 10/17/18 06:52 Dose: 100 mls/hr Metoprolol Succinate (Toprol Xl) 25 mg PO BID [facility] Last Admin: 10/17/18 10:48 Dose: Not Given Multivitamins/Minerals (Theragran M) 1 tab PO DAILYWM [facility] Last Admin: 10/17/18 10:48 Dose: 1 tab Non-Formulary Medication (Ketoconazole [Ketoconazole]) 1 applic TD DAILY PRN PRN Reason: Diaper Rash Ondansetron HCl (Zofran Inj) 4 mg IVP Q6HR PRN PRN Reason: Nausea / Vomiting Ondansetron HCl (Zofran Odt) 4 mg TL Q6HR PRN PRN Reason: Nausea / Vomiting (Dofetilide [ Dofetilide] 250 Mcg) Capsule 1 each PO BID [facility] Last Admin: 10/17/18 11:35 Dose: 1 each Polyethylene Glycol (Miralax) 17 gm PO DAILY [facility] Last Admin: 10/17/18 10:49 Dose: Not Given Saccharomyces Boulardii (Florastor) 250 mg PO BIDWM [facility] Last Admin: 10/17/18 10:45 Dose: 250 mg Sodium Chloride (Normal Saline Flush 0.9%) 10 ml IVP PRN PRN PRN Reason: NEEDED PER PROVIDER ORDERS Last Admin: 10/14/18 03:42 Dose: 10 ml Sodium Chloride (Normal Saline Flush 0.9%) 10 ml IVP 0100,0900,1700 [facility] Last Admin: 10/17/18 11:34 Dose: 10 ml Vitamin A/Vitamin D (Vitamin A & D Ointment) 1 applic TOP PRN PRN PRN Reason: Skin Care Last Admin: 10/16/18 14:25 Dose: 1 applic Warfarin Sodium (Coumadin) 2.5 mg PO QDWARFARIN [facility] Last Admin: 10/16/18 14:17 Dose: 2.5 mg Zolpidem Tartrate (Ambien) 5 mg PO QPM PRN PRN Reason: Insomnia Last Admin: 10/16/18 22:09 Dose: 5 mg Telmisartan [Micardis] 80 mg PO DAILY 01/14/14 Acetaminophen 1 tab PO Q6HR 06/15/18 Ketoconazole 1 applic TOP BID PRN 06/15/18 Spironolactone 25 mg PO DAILY 06/15/18 Albuterol 2.5 mg INH Q4H PRN 06/18/18 Albuterol Sulf [Ventolin Hfa Inhaler] 2 puffs INH Q4H PRN 06/18/18 Dofetilide 250 mcg PO BID 10/12/18 Citalopram Hydrobromide [Citalopram HBr] 20 mg PO DAILY 10/13/18 Doxazosin Mesylate 2 mg PO QPM 10/13/18 Doxycycline Hyclate 100 mg PO [id number] 10/13/18 Hydralazine HCl 25 mg PO TID 10/13/18 Ivermectin 18 mg PO ONCE 10/13/18 Metoprolol Succinate 25 mg PO BID 10/13/18 Mupirocin 2% Oint [Bactroban 2% Oint] 1 applic TOP BID 10/13/18 Nystatin 1 applic TOP BID PRN 10/13/18 Triamcinolone 0.1% Oint [Kenalog 0.1% Oint] 1 applic TOP BID PRN 10/13/18 Warfarin Sodium 1.25 mg PO MOWEFR@0900 10/13/18 Warfarin Sodium 2.5 mg PO SUTUTHSA@0900 10/13/18 predniSONE [Deltasone] 80 mg PO ONCE 10/13/18 Objective - Vital Signs/Intake & Output Reviewed Vital Signs: Yes Vital Signs: Vital Signs x48h Temp Pulse Resp BP Pulse Ox 10/17/18 07:54 37 C 71 20 112/38 L 98 Intake & Output: Intake & Output 10/14/18 10/15/18 10/16/18 10/17/18 23:59 23:59 23:59 23:59 Intake Total 1456.7 2848.633 3478 1320.000 Output Total 1426 400 375 150 Balance 30.7 2448.633 3103 1170.000 - Objective General Appearance: positive: Alert, Mild distress (From the severe fatigue she feels, is emotional) Eyes Bilateral: positive: PERRL, EOMI ENT: positive: Other (No change with her tongue that has no rugae, and the buccal ulceration on the left-hand side is the same. No April. Lips are quite dry but buccal mucosa is pink and moist. Skin of cheeks and around eyes/eyelids is red while rest of face is pale and flaking.) Neck: positive: No JVD. negative: Stiff neck, Carotid bruit Respiratory: positive: Chest non-tender, Other (slow shallow respiraiton). negative: Wheezes, Rales, Rhonchi Cardiovascular: positive: Regular rate & rhythm. negative: Gallop/S4, Friction rub Abdomen: positive: Non-tender, No organomegaly, Nml bowel sounds, No distention Skin: positive: Warm, Dry, Other (flaking skin off of her whole body is less and less. much like a sun burn that has peeled. still with red quarter size lesions, palpable, non blanching, slightly raised with scaling skin around them that start on medial thighs near groin and extend down medial thigh skin to above knees. She then has dense thick red april rash of intertriginous folds of groin and panus.) Extremities: positive: Full ROM, Pedal edema (less and less. Skin of feet, ankles, painting and calves has shrunken w wrinkles. but bullous skin starts at below knees down to top of foot on both legs. Right medial and lateral malleoli still w 5 cm blisters) Neurologic/Psychiatric: positive: Oriented x3, CN's nml (2-12), Motor nml, Weakness - Lab Results Fish Bones: 10/16/18 06:28 10/16/18 06:28 Other Labs: Lab Results x24hrs 10/16/18 Range/Units 20:33 Last Dose Date 10/15/18 Last Dose Time 2206 Vancomycin Trough 16.2 (10.0-20.0) ug/mL ABX Reporting Has patient been on IV antibiotics over the past 48 hours?: Yes Sepsis Event Note (H) - Evaluation Current Stage of Sepsis: Ruled out Possible source of Sepsis: positive: Skin/soft tissue - Sepsis Criteria Sepsis Criteria: WBC count greater than 10% bands Assessment/Plan - Problem List (1) Cellulitis of both lower extremities Impression: Blood cultures x2 were drawn, and she has negative results at 48 hours. WBC co ntinues to slowly go down. IV vancomycin and IV clindamycin were started and will continue. Day # 5 clindamycin and Day #3 for vancomycin. Plan for 7 days then stop. Continue symptomatic care for pain or irritation. Be careful of creatinine rise on Vancomycin. So far stable rise to 1.3 for 2 days. Continue wound dressing changes QOD, as advised by [facility] [place], Wayne. Wayne was going to try to get to Q3days dressing change for ease of Home Health Scheduling but this woman is so weak, I think she will need SNF. Wayne also feels that she has such serous drainage that she will need daily wound care. Son had been at the bedside 10/14 and he agrees but she is reluctant for SNF wound care. Plan is for ordering PT, when she is not having such severe leg pain. When she is done with her antibiotics, I think that is when we will transfer her to [facility] (2) Diffuse papular rash Assessment/Plan: The exact etiology is unclear, presumably some allergic reaction. I spoke to her noise abatement engineer, Cedric Lawson [phone] on 10/14 and updated him as well today. She was seen by him October 03 for skin biopsy after presenting with a bright red peeling diffuse body rash. 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 The differential diagnosis for that would be arthropod reaction, contact dermatitis, or eczematoid skin disease. Least likely was a drug reaction. She is on Tikosyn which is a sulfa derivative. But again, it is not felt to be a drug reaction. After October 03, she was put on steroids. She was also put on ivermectin 3 mg tabs (6 then and 6 one week later) and permethrin on 10/07/18 thinking that it was an arthropod attack. She seemed to improve and was better, but when she returned in follow- up she remarked that her legs were now quite painful and she had developed a blistering reaction of her legs. So she was put on abx for Staph, doxycycline. Told to come back and next thing, she was in the ER. The Dermatology department at [place] was contacted by the ER and photos of lower extremities were reviewed They do not think it is Zbigniew's Sabino or Staph Scalded Skin Syndrome Recommendation is to treat infection. Also that patient will need to follow up with dermatology later Continue symptomatic treatment, as above. I spoke to dermatology again 10/15 and I sent them copies of the photos that were done 10/14. My concern is continued peeling and blistering. She is going to lose all of her skin over her lower extremities at the rate the skin is coming off. Dr. Pearce has reviewed the pictures. He feels we are on the right track. He feels that the blisters on her legs are edema related. They are not even related to chronic venous stasis dermatitis but just a simple sudden edema causing blistering of her skin. He recommends a protective ointment or dressing such as Telfa or Vaseline plus Davie wrap compression. (3) Atrial fibrillation Qualifiers: Atrial fibrillation type: chronic Qualified Code(s): I48.2 - Chronic atrial fibrillation Assessment/Plan: Heart rate is controlled. Resume daily Coumadin when INR 2-3, follow daily INR. She is INR 2.0 today on resumed coumadin. (4) Supratherapeutic INR Assessment/Plan: This is likely related to her use of antibiotics for several weeks. Vitamin K was administered 10/13 when morning's INR was greater than 5. Follow INR daily. Resumed Coumadin when therapeutic, target INR is 2-3 She is now 2.0 and I will hold for that day if goes >2.5 (5) JARED Assessment/Plan: Her creat has come up to 1.3. She has poor IV access and skin is edematous in forearms. I suspect low BP and some mild intravolume depletion from leg oozing is responsible. Is started 0.9 NS last night. So far tolerating it. get PICC or IJ and give fluids that way if loses IV access (6) Chronic diastolic (congestive) heart failure Assessment/Plan: Echo was just done in Jul 2018, showing preserved LVEF and diastolic dysfunction present. She is not in a CHF exacerbation this admission. (7) Hx of essential hypertension Assessment/Plan: She was on micardis, metoprolol, spironolactone,and doxasozin. 10/13 she was 108 systolic and I wrote for parameters to hold for systolic <110. 10/14 knife cutter rewrote to hold for systolic <130 and that is appropriate in view of creatinine. (8) Depression Assessment/Plan: Continue her home med. (9) Insomnia Qualifiers: Insomnia type: unspecified Qualified Code(s): G47.00 - Insomnia, unspecified Assessment/Plan: Continue her home med. (10) Sepsis Qualifiers: Sepsis type: sepsis due to unspecified organism Qualified Code(s): A41.9 - Sepsis, unspecified organism Assessment/Plan: This provider thinks that this diagnosis is an error. The only criteria she met for sepsis was that of an elevated white cell count. She did not have fever, blood pressure changes, hypoxic, lactic acidosis. I do not think she had sepsis. HR controlled and WBC is decreasing.
[2018-10-17] MEDS: WARFARIN 2.5 MG TABLET PO SCH (13:40)
[2018-10-17] MEDS: ACETAMINOPHEN 325 MG TABLET PO PRN (13:54)
[2018-10-17] MEDS: VANCOMYCIN INJ 1 GM in SODIUM CHLORIDE 0.9% 250 ML IV SCH (20:24)
[2018-10-17] MEDS: ZOLPIDEM 5 MG TABLET PO PRN (20:38)
[2018-10-17] MEDS: A & D OINTMENT 5 GM PACKET TOP PRN (20:38)
[2018-10-18] MEDS: SODIUM CHLORIDE FLUSH 0.9% 10 ML SYRINGE IVP SCH ×3 (01:14→18:08)
[2018-10-18] MEDS: SODIUM CHLORIDE 0.9% 1,000 ML IV SCH (04:18)
[2018-10-18] MEDS: CLINDAMYCIN 600 MG/50 ML 50 ML IV SCH ×2 (04:18→09:54)
[2018-10-18 06:35] LABS: PT - PROTHROMBIN TIME 66.3 secs (9.9-12.6)
[2018-10-18 06:40] LABS: CREATININE 1.6 mg/dL (0.4-1.0)
[2018-10-18 06:41] LABS: CALCIUM 6.5 mg/dL (8.5-10.3)
[2018-10-18] MEDS ORDERED: CALCIUM GLUCONATE 2,000 MG in SODIUM CHLORIDE 0.9% 100ML 100 ML IV ONE (07:59)
[2018-10-18] MEDS ORDERED: LACTATED RINGERS 1,000 ML IV SCH (08:00)
[2018-10-18] MEDS: diphenhydrAMINE 25 MG CAPSULE PO PRN ×2 (08:56→18:35)
[2018-10-18] MEDS: hydrALAZINE 25 MG TABLET PO SCH (09:17)
[2018-10-18] MEDS: POLYETHYLENE GLYCOL 3350 17 GM PACKET PO SCH (09:18)
[2018-10-18] MEDS: MULTIVITAMIN W/MINERALS TABLET PO SCH (09:54)
[2018-10-18] MEDS: ZINC SULFATE 220 MG CAPSULE PO SCH (09:54)
[2018-10-18] MEDS: SACCHAROMYCES BOULARDII 250 MG CAPSULE PO SCH ×2 (09:54→18:08)
[2018-10-18] MEDS: CITALOPRAM 10 MG TABLET PO SCH (09:54)
[2018-10-18] MEDS: DOFETILIDE 250 MCG PO SCH ×2 (10:02→21:44)
[2018-10-18] MEDS ORDERED: PHYTONADIONE 10 MG/ML AMP PO ONE (10:17)
[2018-10-18] MEDS ORDERED: CHERRY SYRUP 10 ML UDC PO ONE (10:17)
[2018-10-18] MEDS: LACTATED RINGERS 1,000 ML IV SCH ×2 (10:30→20:12)
--- NOTE | 2018-10-18 11:57 | PROVIDER PROGRESS NOTE ---
Subjective - Prog Note Date Prog Note Date: 10/18/18 Prog Note Time: 12:10 Current Medications - Current Medications Current Medications: Active Medications Acetaminophen (Tylenol) 650 mg PO Q4HR PRN PRN Reason: Pain 1 to 4 Last Admin: 10/17/18 13:54 Dose: 650 mg Albuterol () 2.5 mg INH RTQ4H PRN PRN Reason: Wheezing Citalopram Hydrobromide (Celexa) 20 mg PO DAILY [facility] Last Admin: 10/18/18 09:54 Dose: 20 mg Clindamycin HCl (Cleocin) 150 mg PO Q6HR [facility] Diphenhydramine HCl (Benadryl) 25 mg PO Q4HR PRN PRN Reason: Allergy Symptoms Last Admin: 10/18/18 08:56 Dose: 25 mg Lactated Ringer's (Lr) 1,000 mls @ 85 mls/hr IV .[id number] [facility] Methylprednisolone (Solu-Medrol (40mg Vial)) 40 mg IVP TID [facility] Metoprolol Succinate (Toprol Xl) 25 mg PO BID [facility] Last Admin: 10/17/18 20:23 Dose: 25 mg Multivitamins/Minerals (Theragran M) 1 tab PO DAILYWM [facility] Last Admin: 10/18/18 09:54 Dose: 1 tab Non-Formulary Medication (Ketoconazole [Ketoconazole]) 1 applic TD DAILY PRN PRN Reason: Diaper Rash Ondansetron HCl (Zofran Inj) 4 mg IVP Q6HR PRN PRN Reason: Nausea / Vomiting Ondansetron HCl (Zofran Odt) 4 mg TL Q6HR PRN PRN Reason: Nausea / Vomiting (Dofetilide [ Dofetilide] 250 Mcg) Capsule 1 each PO BID [facility] Last Admin: 10/18/18 10:02 Dose: 1 each Polyethylene Glycol (Miralax) 17 gm PO DAILY [facility] Last Admin: 10/18/18 09:18 Dose: Not Given Saccharomyces Boulardii (Florastor) 250 mg PO BIDWM [facility] Last Admin: 10/18/18 09:54 Dose: 250 mg Sodium Chloride (Normal Saline Flush 0.9%) 10 ml IVP PRN PRN PRN Reason: NEEDED PER PROVIDER ORDERS Last Admin: 10/14/18 03:42 Dose: 10 ml Sodium Chloride (Normal Saline Flush 0.9%) 10 ml IVP 0100,0900,1700 [facility] Last Admin: 10/18/18 10:04 Dose: Not Given Triamcinolone Acetonide (Kenalog 0.1% Cream) 1 applic TOP BID [facility] Vitamin A/Vitamin D (Vitamin A & D Ointment) 1 applic TOP PRN PRN PRN Reason: Skin Care Last Admin: 10/17/18 20:38 Dose: 1 applic Zinc Sulfate () 220 mg PO DAILY [facility] Last Admin: 10/18/18 09:54 Dose: 220 mg Zolpidem Tartrate (Ambien) 5 mg PO QPM PRN PRN Reason: Insomnia Last Admin: 10/17/18 20:38 Dose: 5 mg Telmisartan [Micardis] 80 mg PO DAILY 01/14/14 Acetaminophen 1 tab PO Q6HR 06/15/18 Ketoconazole 1 applic TOP BID PRN 06/15/18 Spironolactone 25 mg PO DAILY 06/15/18 Albuterol 2.5 mg INH Q4H PRN 06/18/18 Albuterol Sulf [Ventolin Hfa Inhaler] 2 puffs INH Q4H PRN 06/18/18 Dofetilide 250 mcg PO BID 10/12/18 Citalopram Hydrobromide [Citalopram HBr] 20 mg PO DAILY 10/13/18 Doxazosin Mesylate 2 mg PO QPM 10/13/18 Doxycycline Hyclate 100 mg PO [id number] 10/13/18 Hydralazine HCl 25 mg PO TID 10/13/18 Ivermectin 18 mg PO ONCE 10/13/18 Metoprolol Succinate 25 mg PO BID 10/13/18 Mupirocin 2% Oint [Bactroban 2% Oint] 1 applic TOP BID 10/13/18 Nystatin 1 applic TOP BID PRN 10/13/18 Triamcinolone 0.1% Oint [Kenalog 0.1% Oint] 1 applic TOP BID PRN 10/13/18 Warfarin Sodium 1.25 mg PO MOWEFR@0900 10/13/18 Warfarin Sodium 2.5 mg PO SUTUTHSA@0900 10/13/18 predniSONE [Deltasone] 80 mg PO ONCE 10/13/18 Objective - Vital Signs/Intake & Output Reviewed Vital Signs: Yes Vital Signs: Vital Signs x48h Temp Pulse Resp BP BP Pulse Ox 10/18/18 08:47 114/38 L 10/18/18 08:00 37.3 C 64 20 99/32 L 90/37 L 97 Intake & Output: Intake & Output 10/15/18 10/16/18 10/17/18 10/18/18 23:59 23:59 23:59 23:59 Intake Total 2848.633 3478 2778.334 1773.333 Output Total 400 375 550 150 Balance 2448.633 3103 2228.334 1623.333 - Objective General Appearance: positive: Alert, Other (Very weak. Skin is very tender when she just hurts everywhere in the back is phenomenally itchy. The rest of her skin is itchy as well but the pressure of her back on the sheets is driving her crazy) Eyes Bilateral: positive: PERRL ENT: positive: Other (The skin of her face is sandpapery dry. There are some days where the rashes around her eyes and her eyelids, sometimes in her forehead. Today's on the entire right side of her face from the zygomatic arch down to the neck. Lips are dry. Oral mucosa is pink and moist. Stable buccal mucosal ulcer on the left) Neck: positive: No JVD. negative: Stiff neck, Carotid bruit Respiratory: positive: Chest non-tender. negative: Wheezes, Rales, Rhonchi Cardiovascular: positive: Irregularly irregular. negative: Gallop/S4, Friction rub Abdomen: positive: Non-tender, Nml bowel sounds, No distention. negative: Guarding, Rebound Skin: positive: Warm, Other (Pictures were put in the chart. Her back is now just a solid red skin that is hot to touch. She has various areas of peeling. The redness extends to the mid axillary line. Redness goes into the chest wall and abdomen but it is not nearly as intensely red and more covered with dry flaking skin. Abdominal pannus fold and intertriginous fold are densely red with probable yeast. Her hands are now spontaneously peeling on the palms. Right fingertips are cyanotic and the thenar eminence is cyanotic. The circular lesions on her thighs are not confluent but they are red palpable nonpalpable blanching and have also started to spontaneously peel. The skin before her knees is covered in bandages that are soaked through with clear serous fluid. She is requiring dressing changes about twice a day.) Extremities: positive: Full ROM, Pedal edema Neurologic/Psychiatric: positive: Oriented x3, CN's nml (2-12), Motor nml, Weakness - Lab Results Fish Bones: 10/16/18 06:28 10/18/18 06:20 Other Labs: Lab Results x24hrs 10/18/18 10/18/18 Range/Units 06:20 06:20 PT 66.3 H (9.9-12.6) secs INR 6.0 H* (0.8-1.2) Sodium 138 (135-145) mmol/L Potassium 4.2 (3.5-5.0) mmol/L Chloride 108 (101-111) mmol/L Carbon Dioxide 20 L (21-32) mmol/L Anion Gap 10.0 (6-13) BUN 33 H (6-20) mg/dL Creatinine 1.6 H (0.4-1.0) mg/dL Estimated GFR (MDRD) 30 L (>89) Glucose 115 H (70-100) mg/dL Calcium 6.5 L* (8.5-10.3) mg/dL ABX Reporting Has patient been on IV antibiotics over the past 48 hours?: Yes Sepsis Event Note (H) - Evaluation Current Stage of Sepsis: Ruled out Possible source of Sepsis: positive: Skin/soft tissue - Sepsis Criteria Sepsis Criteria: WBC count greater than 10% bands Assessment/Plan - Problem List (1) Cellulitis of both lower extremities Impression: Blood cultures x2 were drawn, and she has negative results at 5 days. WBC continues to slowly go down. IV vancomycin and IV clindamycin were started and will continue. Day # 6 clindamycin and Day #4 for vancomycin. Plan for 7 days then stop. Both of those have been IV but her creat is slowly climbing (1.0>1.3>1.6) so I will stop IV abx and go to oral Clinda Continue symptomatic care for pain or irritation. Continue wound dressing changes QOD, as advised by [facility] wound care provider, Wayne. Wayne was going to try to get to Q3days dressing change for ease of Home Health Scheduling but this woman is so weak, I think she will need SNF. Wayne also feels that she has such serous drainage that she will need daily wound care. Son had been at the bedside 10/14 and he agrees but she is reluctant for SNF wound care. Plan is for ordering PT, when she is not having such severe leg pain. So far she has not been able to do PT and has been in bed. I had hoped to transfer to SNF today or tomorrow but her creat rise and continued rash is a problem that needs to be addressed before she goes to rehab. (2) Diffuse papular rash Assessment/Plan: The exact etiology is unclear, presumably some allergic reaction. I spoke to her cdl truck driver, Cedric Lawson [phone] on 10/14 and updated him as well . She was seen by him October 03 for skin biopsy after presenting with a bright red peeling diffuse body rash. 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 The differential diagnosis for that would be arthropod reaction, contact dermatitis, or eczematoid skin disease. Least likely was a drug reaction. She is on Tikosyn which is a sulfa derivative and she allergic to sulfa. But again, it is not felt to be a drug reaction. After October 03, she was put on steroids. She was also put on ivermectin 3 mg tabs (6 then and 6 one week later) and permethrin on 10/07/18 thinking that it was an arthropod attack. She seemed to improve and was better, but when she returned in follow-up she remarked that her legs were now quite painful and she had developed a blistering reaction of her legs. So she was put on abx for Staph, doxycycline. Told to come back and next thing, she was in our ER 10/12/18 with large bullous sloughing of the skin of her legs and cellulitis. The Dermatology department at [place] was contacted by the ER that day and photos of lower extremities were reviewed They do not think it is Zbigniew's Sabino or Staph Scalded Skin Syndrome Recommendation is to treat infection. Also that patient will need to follow up with dermatology later Continue symptomatic treatment, as above. I spoke to dermatology again 10/15 and I sent them copies of the photos that were done 10/14. My concern is continued peeling and blistering. She is going to lose all of her skin over her lower extremities at the rate the skin is coming off. Dr. Pearce has reviewed the pictures. He feels we are on the right track. He feels that the blisters on her legs are edema related. They are not even related to chronic venous stasis dermatitis but just a simple sudden edema causing blistering of her skin. He recommends a protective ointment or dressing such as Telfa or Vaseline plus Davie wrap compression. Today I spoke to Dr. Andrade since her rash in getting worse on her body. When I first met her she had a sandpapery red rash on her face that came and went. Different parts of her face over different days. Her back was sandpapery, and forearms were starting to get sandpapery as well as the skin of the triceps area. She is intensely pruritic. Skin is tender to touch. She has a small ulcer in the left buccal mucosa that I think is more due to dentures than to true buccal pathology. She was already peeling diffusely and it was a "snowflake" of a storm from her skin on the floor and on the bed. She seemed to be on the mend for the 2 or 3 days I have been taking care of her and today she is much worse. She now has spontaneous peeling of the palms of her hands with her fingers being cyanotic. She is shivering but no fever and no drop in BP. She has a dense red tender rash along the mid axillary line going to her back. Skin is starting to peel again. Overall she is very fatigued, weak. Creatinine is rising possibly from loss of fluids in her legs and vancomycin. I have taken more photos and sent them to Dr. Andrade and she will review thru [email or web address]. Over the phone she is recommending that I do punch biopsies for immunofluorescence, apply 0.1% topical triamcinolone cream from face to body. And start prednisone p.o. I have also updated recent bleed attack as well. He may be calling Dr. Horowitz to discuss the case with her himself. He also may come in to see the patient on Saturday (today is Saturday). Dr. Horowitz does not feel the need for her to be transferred. (3) Atrial fibrillation Qualifiers: Atrial fibrillation type: chronic Qualified Code(s): I48.2 - Chronic atrial fibrillation Assessment/Plan: Heart rate is controlled.Continue metoprolol twice daily Resume daily Coumadin when INR 2-3, follow daily INR. She is INR 2.0 today on resumed coumadin. (4) Supratherapeutic INR Assessment/Plan: This is likely related to her use of antibiotics for several weeks. Vitamin K was administered 10/13 when morning's INR was greater than 5. Follow INR daily. Resumed Coumadin when therapeutic, target INR is 2-3 She was INR 2.0 on the and her coumadin had been held prior to that. I resumed it at 2.5 mg and INR is now 6.0 today. Hold coumadin again and give Vitamin K 10 mg po today. (5) JARED Assessment/Plan: Her creat has come up 1.0>1.3>1.6. She has poor IV access and skin is edematous in forearms. I suspect low BP and some mild intravolume depletion from leg oozing is responsible. Is started 0.9 NS 10/15 [address] is [address] postive on I/O. So I am stopping the NS and changing to LR at 85 cc/Hr . Denies sob but she isn't mobile enough to have larios (6) Chronic diastolic (congestive) heart failure Assessment/Plan: Echo was just done in Jul 2018, showing preserved LVEF and diastolic dysfunction present. She is not in a CHF exacerbation this admission. (7) Hx of essential hypertension Assessment/Plan: She was on micardis, metoprolol, spironolactone,and doxasozin. 10/13 she was 108 systolic and I wrote for parameters to hold for systolic <110. 10/14 environmental remediation specialist rewrote to hold for systolic <130 and that is appropriate in view of creatinine. I am stopping hydralazine today. She will be continued on metoprolol to avoid rebound tachycardia. This will also help her A. fib. (8) Depression Assessment/Plan: Continue her home med. (9) Insomnia Qualifiers: Insomnia type: unspecified Qualified Code(s): G47.00 - Insomnia, unspecified Assessment/Plan: Continue her home med. (10) Sepsis Qualifiers: Sepsis type: sepsis due to unspecified organism Qualified Code(s): A41.9 - Sepsis, unspecified organism Assessment/Plan: This provider thinks that this diagnosis is an error. The only criteria she met for sepsis was that of an elevated white cell count. She did not have fever, blood pressure changes, hypoxic, lactic acidosis. I do not think she had sepsis. HR controlled and WBC is decreasing.
[2018-10-18] MEDS: METOPROLOL SUCCINATE 25 MG TABLET PO SCH ×2 (13:09→21:43)
[2018-10-18] MEDS: CLINDAMYCIN 150 MG CAPSULE PO SCH ×2 (13:42→18:07)
[2018-10-18] MEDS: TRIAMCINOLONE 0.1% CREAM 15 GM TUBE TOP SCH ×2 (13:49→18:29)
[2018-10-18] MEDS: methylPREDNISolone SUCCINATE 40 MG/ML VIAL IVP SCH ×2 (14:08→21:45)
[2018-10-18] MEDS: ALBUTEROL NEB 2.5 MG/3 ML INH PRN ×2 (15:39→22:48)
[2018-10-18] MEDS: ACETAMINOPHEN 325 MG TABLET PO PRN ×2 (16:51→21:43)
[2018-10-18] MEDS ORDERED: diphenhydrAMINE INJ 50 MG/ML VIAL IVP STA (21:54)
[2018-10-18] MEDS: SODIUM CHLORIDE FLUSH 0.9% 10 ML SYRINGE IVP PRN (22:11)
[2018-10-18] MEDS ORDERED: diphenhydrAMINE INJ 50 MG/ML VIAL ONE (22:14)
[2018-10-18 22:39] LABS: BILIRUBIN,URINE NEGATIVE (NEGATIVE); CLARITY,URINE CLEAR (CLEAR); GLUCOSE, URINE (UA) NEGATIVE (NEGATIVE); KETONES,URINE (UA) NEGATIVE (NEGATIVE); LEUKOCYTE ESTERASE, URINE NEGATIVE (NEGATIVE); NITRITE,URINE NEGATIVE (NEGATIVE); OCCULT BLOOD,URINE NEGATIVE (NEGATIVE); PH,URINE 5.5 PH (5.0-7.5); PROTEIN,URINE NEGATIVE (NEGATIVE); UROBILINOGEN,URINE 0.2 (NORMAL) E.U./dL (NORMAL)
[2018-10-19] MEDS: CLINDAMYCIN 150 MG CAPSULE PO SCH ×4 (00:22→17:34)
[2018-10-19] MEDS: hydrOXYzine PAMOATE 25 MG CAPSULE PO PRN ×2 (00:22→21:17)
[2018-10-19] MEDS: SODIUM CHLORIDE FLUSH 0.9% 10 ML SYRINGE IVP SCH ×3 (00:23→11:53)
[2018-10-19] MEDS: CETIRIZINE 10 MG TABLET PO SCH (01:18)
[2018-10-19] MEDS ORDERED: CETIRIZINE 10 MG TABLET ONE (01:22)
[2018-10-19] MEDS: methylPREDNISolone SUCCINATE 40 MG/ML VIAL IVP SCH (06:06)
[2018-10-19 06:30] LABS: BASOPHILS % (AUTO) 0.1 %; HGB - HEMOGLOBIN 9.2 g/dL (12.0-16.0); LYMPHOCYTES # (AUTO) 0.4 10^3/uL (1.5-3.5); LYMPHOCYTES % (AUTO) 3.3 %; MEAN CORPUSCULAR HEMOGLOBIN 29.6 pg (27.0-31.0); MEAN CORPUSCULAR HGB CONC 33.5 g/dL (32.0-36.0); MEAN CORPUSCULAR VOLUME 88.4 fL (81.0-99.0); MEAN PLATELET VOLUME 7.7 fL (7.9-10.8); MONOCYTES # (AUTO) 0.3 10^3/uL (0.0-1.0); MONOCYTES % (AUTO) 1.9 %; NEUTROPHILS # (AUTO) 12.8 10^3/uL (1.5-6.6); NEUTROPHILS % (AUTO) 94.7 %; PLT - PLATELET COUNT 183 10^3/uL (130-450); RED CELL DISTRIBUTION WIDTH 14.5 % (12.0-15.0); WHITE BLOOD COUNT 13.6 x10^3/uL (4.8-10.8)
[2018-10-19 06:36] LABS: INR 1.8 (0.8-1.2); PT - PROTHROMBIN TIME 20.7 secs (9.9-12.6)
[2018-10-19 06:40] LABS: CALCIUM 7.3 mg/dL (8.5-10.3); CREATININE 1.4 mg/dL (0.4-1.0)
[2018-10-19] MEDS: LACTATED RINGERS 1,000 ML IV SCH (08:21)
[2018-10-19] MEDS ORDERED: CLOBETASOL 0.05% OINT 30 GM TUBE TOP SCH (09:00)
[2018-10-19] MEDS: MULTIVITAMIN W/MINERALS TABLET PO SCH (09:18)
[2018-10-19] MEDS: POLYETHYLENE GLYCOL 3350 17 GM PACKET PO SCH (09:19)
[2018-10-19] MEDS: ZINC SULFATE 220 MG CAPSULE PO SCH (09:19)
[2018-10-19] MEDS: SACCHAROMYCES BOULARDII 250 MG CAPSULE PO SCH ×2 (09:19→17:33)
[2018-10-19] MEDS: CITALOPRAM 10 MG TABLET PO SCH (09:19)
[2018-10-19] MEDS: DOFETILIDE 250 MCG PO SCH ×2 (09:19→21:04)
[2018-10-19] MEDS: METOPROLOL SUCCINATE 25 MG TABLET PO SCH ×2 (10:27→21:04)
[2018-10-19] MEDS: TRIAMCINOLONE 0.1% CREAM 15 GM TUBE TOP SCH ×2 (10:30→21:05)
--- NOTE | 2018-10-19 12:22 | PROVIDER PROGRESS NOTE ---
Subjective - Prog Note Date Prog Note Date: 10/19/18 Prog Note Time: 12:14 - Subjective Pt reports feeling: Worse Subjective: She is utterly miserable. Yesterday I was asked to do Solu-Medrol and topical topical triamcinolone cream. It has not made her better. She says that the itching from last night drove her to tears and to insanity. Various measures were instituted to try to help her with her diffuse pruritus and it really did not work. She is kind of laughing at herself this morning that the only thing that took her mind off the itching was putting food in her mouth and concentrating on chewing and swallowing. If she could concentrate on that she could not concentrate on the itching. She is absolutely fatigued, short of breath. She was gotten up out of bed this morning to sit in a chair and she was able to do it with a standby assist but exhausted. She is diffusely cold, and has been wearing layers of blankets that she has been here and thus not any better. Current Medications - Current Medications Current Medications: Active Medications Acetaminophen (Tylenol) 650 mg PO Q4HR PRN PRN Reason: Pain 1 to 4 Last Admin: 10/18/18 21:43 Dose: 650 mg Albuterol () 2.5 mg INH RTQ4H PRN PRN Reason: Wheezing Last Admin: 10/18/18 22:48 Dose: 2.5 mg Cetirizine HCl (Zyrtec) 5 mg PO DAILY [facility] Last Admin: 10/19/18 01:18 Dose: 5 mg Citalopram Hydrobromide (Celexa) 20 mg PO DAILY [facility] Last Admin: 10/19/18 09:19 Dose: 20 mg Clindamycin HCl (Cleocin) 150 mg PO Q6HR [facility] Last Admin: 10/19/18 09:19 Dose: 150 mg Clobetasol Propionate (Temovate 0.05% Oint) 1 applic TOP BID [facility] Last Admin: 10/19/18 10:17 Dose: 1 applic Diphenhydramine HCl (Benadryl) 50 mg PO Q4HR PRN PRN Reason: Allergy Symptoms Hydroxyzine Pamoate (Vistaril) 50 mg PO Q4HR PRN PRN Reason: pruritus Last Admin: 10/19/18 00:22 Dose: 50 mg Lactated Ringer's (Lr) 1,000 mls @ 85 mls/hr IV .[id number] [facility] Last Infusion: 10/19/18 11:45 Dose: 0 mls/hr Methylprednisolone (Solu-Medrol (40mg Vial)) 40 mg IVP TID [facility] Last Admin: 10/19/18 06:06 Dose: 40 mg Metoprolol Succinate (Toprol Xl) 25 mg PO BID [facility] Last Admin: 10/19/18 10:27 Dose: 25 mg Multivitamins/Minerals (Theragran M) 1 tab PO DAILYWM [facility] Last Admin: 10/19/18 09:18 Dose: 1 tab Non-Formulary Medication (Ketoconazole [Ketoconazole]) 1 applic TD DAILY PRN PRN Reason: Diaper Rash Ondansetron HCl (Zofran Inj) 4 mg IVP Q6HR PRN PRN Reason: Nausea / Vomiting Ondansetron HCl (Zofran Odt) 4 mg TL Q6HR PRN PRN Reason: Nausea / Vomiting (Dofetilide [ Dofetilide] 250 Mcg) Capsule 1 each PO BID [facility] Last Admin: 10/19/18 09:19 Dose: 1 each Polyethylene Glycol (Miralax) 17 gm PO DAILY [facility] Last Admin: 10/19/18 09:19 Dose: Not Given Saccharomyces Boulardii (Florastor) 250 mg PO BIDWM [facility] Last Admin: 10/19/18 09:19 Dose: 250 mg Sodium Chloride (Normal Saline Flush 0.9%) 10 ml IVP PRN PRN PRN Reason: NEEDED PER PROVIDER ORDERS Last Admin: 10/18/18 22:11 Dose: 10 ml Sodium Chloride (Normal Saline Flush 0.9%) 10 ml IVP 0100,0900,1700 [facility] Last Admin: 10/19/18 11:53 Dose: 10 ml Triamcinolone Acetonide (Kenalog 0.1% Cream) 1 applic TOP BID [facility] Last Admin: 10/19/18 10:30 Dose: Not Given Vitamin A/Vitamin D (Vitamin A & D Ointment) 1 applic TOP PRN PRN PRN Reason: Skin Care Last Admin: 10/17/18 20:38 Dose: 1 applic Zinc Sulfate () 220 mg PO DAILY [facility] Last Admin: 10/19/18 09:19 Dose: 220 mg Zolpidem Tartrate (Ambien) 5 mg PO QPM PRN PRN Reason: Insomnia Last Admin: 10/17/18 20:38 Dose: 5 mg Telmisartan [Micardis] 80 mg PO DAILY 01/14/14 Acetaminophen 1 tab PO Q6HR 06/15/18 Ketoconazole 1 applic TOP BID PRN 06/15/18 Spironolactone 25 mg PO DAILY 06/15/18 Albuterol 2.5 mg INH Q4H PRN 06/18/18 Albuterol Sulf [Ventolin Hfa Inhaler] 2 puffs INH Q4H PRN 06/18/18 Dofetilide 250 mcg PO BID 10/12/18 Citalopram Hydrobromide [Citalopram HBr] 20 mg PO DAILY 10/13/18 Doxazosin Mesylate 2 mg PO QPM 10/13/18 Doxycycline Hyclate 100 mg PO [id number] 10/13/18 Hydralazine HCl 25 mg PO TID 10/13/18 Ivermectin 18 mg PO ONCE 10/13/18 Metoprolol Succinate 25 mg PO BID 10/13/18 Mupirocin 2% Oint [Bactroban 2% Oint] 1 applic TOP BID 10/13/18 Nystatin 1 applic TOP BID PRN 10/13/18 Triamcinolone 0.1% Oint [Kenalog 0.1% Oint] 1 applic TOP BID PRN 10/13/18 Warfarin Sodium 1.25 mg PO MOWEFR@0900 10/13/18 Warfarin Sodium 2.5 mg PO SUTUTHSA@0900 10/13/18 predniSONE [Deltasone] 80 mg PO ONCE 10/13/18 Objective - Vital Signs/Intake & Output Reviewed Vital Signs: Yes Vital Signs: Vital Signs x48h Temp Pulse Resp BP Pulse Ox 10/19/18 09:06 126/47 L 10/19/18 08:42 36.3 C L 59 L 20 134/38 H 96 Intake & Output: Intake & Output 10/16/18 10/17/18 10/18/18 10/19/18 23:59 23:59 23:59 23:59 Intake Total 3478 2778.334 5648.750 1538.083 Output Total 375 550 950 150 Balance 3103 2228.334 4698.750 1388.083 - Objective General Appearance: positive: Alert, Other (Morbidly obese elderly female who 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 Face is red. Diffusely edematous face and body.) Eyes Bilateral: positive: PERRL ENT: positive: Other (Tongue is flat with no rugae. The buccal ulcer on the left side is getting smaller and smaller. She wears dentures) Neck: negative: Stiff neck, Carotid bruit Respiratory: positive: Chest non-tender, No respiratory distress (Slow unlabored respiration at rest. She does get tachypneic with the effort of moving when she is transition from bed to chair), Other (Really diminished breath sounds at the bases, almost none at all.). negative: Wheezes, Rales, Rhonchi Cardiovascular: positive: Irregularly irregular, Systolic murmur. negative: Gallop/S4, Friction rub Abdomen: positive: Non-tender, Nml bowel sounds, No distention, Other (The skin of her pannus roll has the dense redness of Santa that goes into the intertriginous folds). negative: Guarding, Rebound Skin: positive: Other (She has been getting the topical steroid since yesterday and the dry alligator-like flaking of her diffuse body has improved. However the dense diffuse redness and heat of the skin from back to chest to arms has worsened. She is to have some patches of normal white skin, is all red now. The skin of her thighs is the same. She had large palpable circular lumps on her legs that then flattened out to dry flaking areas. Below her knees she still has the Davie wraps around edematous legs. The feet are now quite edematous.) Extremities: positive: Pedal edema Neurologic/Psychiatric: positive: Oriented x3, CN's nml (2-12) (Except her vocal cords which are hoarse), Motor nml (Except for severe generalized weakness) - Lab Results Fish Bones: 10/19/18 06:00 10/19/18 06:00 Other Labs: Lab Results x24hrs 10/19/18 10/19/18 10/19/18 Range/Units 06:00 06:00 06:00 WBC 13.6 H (4.8-10.8) x10^3/uL RBC 3.10 L (4.20-5.40) 10^6/uL Hgb 9.2 L (12.0-16.0) g/dL Hct 27.4 L (37.0-47.0) % MCV 88.4 (81.0-99.0) fL MCH 29.6 (27.0-31.0) pg MCHC 33.5 (32.0-36.0) g/dL RDW 14.5 (12.0-15.0) % Plt Count 183 (130-450) 10^3/uL MPV 7.7 L (7.9-10.8) fL Neut # (Auto) 12.8 H (1.5-6.6) 10^3/uL Lymph # (Auto) 0.4 L (1.5-3.5) 10^3/uL Candler # (Auto) 0.3 (0.0-1.0) 10^3/uL Eos # (Auto) 0.0 (0.0-0.7) 10^3/uL Baso # (Auto) 0.0 (0.0-0.1) 10^3/uL Absolute Nucleated RBC 0.01 x10^3/uL Nucleated RBC % 0.0 /100WBC ESR 20 (0-30) mm/Hr PT 20.7 H (9.9-12.6) secs INR 1.8 H (0.8-1.2) Sodium (135-145) mmol/L Potassium (3.5-5.0) mmol/L Chloride (101-111) mmol/L Carbon Dioxide (21-32) mmol/L Anion Gap (6-13) BUN (6-20) mg/dL Creatinine (0.4-1.0) mg/dL Estimated GFR (MDRD) (>89) Glucose (70-100) mg/dL Calcium (8.5-10.3) mg/dL Urine Color Urine Clarity (CLEAR) Urine pH (5.0-7.5) PH Ur Specific Industry (1.002-1.030) Urine Protein (NEGATIVE) mg/dL Urine Glucose (UA) (NEGATIVE) mg/dL Urine Ketones (NEGATIVE) mg/dL Urine Occult Blood (NEGATIVE) Urine Nitrite (NEGATIVE) Urine Bilirubin (NEGATIVE) Urine Urobilinogen (NORMAL) E.U./dL Ur Leukocyte Esterase (NEGATIVE) Ur Microscopic Review Urine Culture Comments 10/19/18 10/18/18 Range/Units 06:00 22:10 WBC (4.8-10.8) x10^3/uL RBC (4.20-5.40) 10^6/uL Hgb (12.0-16.0) g/dL Hct (37.0-47.0) % MCV (81.0-99.0) fL MCH (27.0-31.0) pg MCHC (32.0-36.0) g/dL RDW (12.0-15.0) % Plt Count (130-450) 10^3/uL MPV (7.9-10.8) fL Neut # (Auto) (1.5-6.6) 10^3/uL Lymph # (Auto) (1.5-3.5) 10^3/uL Candler # (Auto) (0.0-1.0) 10^3/uL Eos # (Auto) (0.0-0.7) 10^3/uL Baso # (Auto) (0.0-0.1) 10^3/uL Absolute Nucleated RBC x10^3/uL Nucleated RBC % /100WBC ESR (0-30) mm/Hr PT (9.9-12.6) secs INR (0.8-1.2) Sodium 135 (135-145) mmol/L Potassium 4.3 (3.5-5.0) mmol/L Chloride 109 (101-111) mmol/L Carbon Dioxide 19 L (21-32) mmol/L Anion Gap 7.0 (6-13) BUN 36 H (6-20) mg/dL Creatinine 1.4 H (0.4-1.0) mg/dL Estimated GFR (MDRD) 36 L (>89) Glucose 175 H (70-100) mg/dL Calcium 7.3 L (8.5-10.3) mg/dL Urine Color YELLOW Urine Clarity CLEAR (CLEAR) Urine pH 5.5 (5.0-7.5) PH Ur Specific Industry >=1.030 H (1.002-1.030) Urine Protein NEGATIVE (NEGATIVE) mg/dL Urine Glucose (UA) NEGATIVE (NEGATIVE) mg/dL Urine Ketones NEGATIVE (NEGATIVE) mg/dL Urine Occult Blood NEGATIVE (NEGATIVE) Urine Nitrite NEGATIVE (NEGATIVE) Urine Bilirubin NEGATIVE (NEGATIVE) Urine Urobilinogen 0.2 (NORMAL) (NORMAL) E.U./dL Ur Leukocyte Esterase NEGATIVE (NEGATIVE) Ur Microscopic Review NOT INDICATED Urine Culture Comments NOT INDICATED ABX Reporting Has patient been on IV antibiotics over the past 48 hours?: Yes Sepsis Event Note (H) - Evaluation Current Stage of Sepsis: Ruled out Possible source of Sepsis: positive: Skin/soft tissue - Sepsis Criteria Sepsis Criteria: WBC count greater than 10% bands Assessment/Plan - Problem List (1) Cellulitis of both lower extremities Impression: Blood cultures x2 were drawn, and she has negative results at 5 days. WBC continues to slowly go down.15.7>12.7>13.6 IV vancomycin and IV clindamycin were started and continued for Day # 6 clindamy savage and Day #4 for vancomycin. Both of those have been IV but her creat is slowly climbing (1.0>1.3>1.6) so I stopped IV abx and go to oral Clinda on 10/18 Continue symptomatic care for pain or irritation. I have added Vistaril IM prn for today. Continue wound dressing changes QOD, as advised by [facility] wound care provider, Wayne. Wayne was going to try to get to Q3days dressing change for ease of Home Health Scheduling but this woman is so weak, I think she will need SNF. Wayne also feels that she has such serous drainage that she will need daily wound care. Son had been at the bedside 10/14 and he agrees but she is reluctant for SNF wound care. Both sons here (Jimi and ?) 10/18 and expressed disappointment that she had not recovered more quickly. Plan is for ordering PT, when she is not having such severe leg pain. So far she has not been able to do PT and has been in bed. Today she has been up and worked a little w PT. I had hoped to transfer to SNF last week but her creat rise and continued rash is a problem that needs to be addressed before she goes to rehab. (2) Diffuse papular rash Assessment/Plan: The exact etiology is unclear, presumably some allergic reaction. I spoke to her location manager, Cedric Lawson [phone] on 10/14 and updated him as well . She was seen by him October 03 for skin biopsy after presenting with a bright red peeling diffuse body rash. 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 The differential diagnosis for that would be arthropod reaction, contact dermatitis, or eczematoid skin disease. Least likely was a drug reaction. She is on Tikosyn which is a sulfa derivative and she allergic to sulfa. But again, it is not felt to be a drug reaction. After October 03, she was put on steroids. She was also put on ivermectin 3 mg tabs (6 then and 6 one week later) and permethrin on 10/07/18 thinking that it was an arthropod attack. She seemed to improve and was better, but when she returned in follow-up she remarked that her legs were now quite painful and she had developed a blistering reaction of her legs. So she was put on abx for Staph, doxycycline. Told to come back and next thing, she was in our ER 10/12/18 with large bullous sloughing of the skin of her legs and cellulitis. The Dermatology department at [facility] was contacted by the ER that day and photos of lower extremities were reviewed They do not think it is Bzigniew's Sabino or Staph Scalded Skin Syndrome Recommendation is to treat infection. Also that patient will need to follow up with dermatology later Continue symptomatic treatment, as above. I spoke to dermatology again 10/15 and I sent them copies of the photos that were done 10/14. My concern is continued peeling and blistering. She is going to lose all of her skin over her lower extremities at the rate the skin is coming off. Dr. Pearce has reviewed the pictures. He feels we are on the right track. He feels that the blisters on her legs are edema related. They are not even related to chronic venous stasis dermatitis but just a simple sudden edema causing blistering of her skin. He recommends a protective ointment or dressing such as Telfa or Vaseline plus Davie wrap compression. 10/[address] Andrade since her rash in getting worse on her body. When I first met her she had a sandpapery red rash on her face that came and went. Different parts of her face over different days. Her back was sandpapery, and forearms were starting to get sandpapery as well as the skin of the triceps area. She is intensely pruritic. Skin is tender to touch. She has a small ulcer in the left buccal mucosa that I think is more due to dentures than to t rue buccal pathology. She was already peeling diffusely and it was a "snowflake" of a storm from her skin on the floor and on the bed. She seemed to be on the mend for the 2 or 3 days I have been taking care of her and today she is much worse. She now has spontaneous peeling of the palms of her hands with her fingers being cyanotic. She is shivering but no fever and no drop in BP. She has a dense red tender rash along the mid axillary line going to her back. Skin is starting to peel again. Overall she is very fatigued, weak. Creatinine is rising possibly from loss of fluids in her legs and vancomycin. I have taken more photos and sent them to Dr. Andrade and she will review thru [email or web address]. Over the phone she is recommending that I do punch biopsies for immunofluorescence, apply 0.1% topical triamcinolone cream from face to body. And start prednisone p.o. I have also updated Cedric Lawson as well. He may be calling Dr. Horowitz to discuss the case with her himself. He also may come in to see the patient on Saturday (today is Saturday). Dr. Horowitz does not feel the need for her to be transferred. I will ask for supplies for punch biopsy for today. (3) Atrial fibrillation Qualifiers: Atrial fibrillation type: chronic Qualified Code(s): I48.2 - Chronic atrial fibrillation Assessment/Plan: Heart rate is controlled.Continue metoprolol twice daily. I have stopped all her BP meds except this. Resume daily Coumadin when INR 2-3, follow daily INR. INR 2.0 so coumadin resumed, after 1 dose of coumadin 2.5 mg, INR 6 on 10/18 so coumadin held again. (4) Supratherapeutic INR Assessment/Plan: This is likely related to her use of antibiotics for several weeks. Vitamin K was administered 10/13 when morning's INR was greater than 5. Follow INR daily. Resumed Coumadin when therapeutic, target INR is 2-3 She was INR 2.0 on the and her coumadin had been held prior to that. I resumed it at 2.5 mg and INR is now 6.0 today. Hold coumadin again and give Vitamin K 10 mg po on 10/18 INR is 1.8 today. (5) JARED Assessment/Plan: Her creat has come up 1.0>1.3>1.6. She has poor IV access and skin is edematous in forearms. I suspect low BP and some mild intravolume depletion from leg oozing is responsible. I started 0.9 NS 10/15 [address] postive on I/O. So I am stopping the NS and changing to LR at 85 cc/Hr on 10/18. Denies sob but she isn't mobile enough to have larios. today INR is 1.4 stop LR and start lasix 20 mg po (6) Chronic diastolic (congestive) heart failure Assessment/Plan: Echo was just done in Jul 2018, showing preserved LVEF and diastolic dysfunction present. She is not in a CHF exacerbation this admission. Start lasix 20 mg po for diffuse body edema and third spacin. (7) Hx of essential hypertension Assessment/Plan: She was on micardis, metoprolol, spironolactone,and doxasozin. 10/13 she was 108 systolic and I wrote for parameters to hold for systolic <110. 10/14 molder helper rewrote to hold for systolic <130 and that is appropriate in view of creatinine. Hydralazine stopped 10/18. She will be continued on metoprolol to avoid rebound tachycardia. This will also help her A. fib. (8) Depression Assessment/Plan: Continue her home med. (9) Insomnia Qualifiers: Insomnia type: unspecified Qualified Code(s): G47.00 - Insomnia, unspecified Assessment/Plan: Continue her home med. (10) Sepsis Qualifiers: Sepsis type: sepsis due to unspecified organism Qualified Code(s): A41.9 - Sepsis, unspecified organism Assessment/Plan: This provider thinks that this diagnosis is an error. The only criteria she met for sepsis was that of an elevated white cell count. She did not have fever, blood pressure changes, hypoxic, lactic acidosis. I do not think she had sepsis. HR controlled and WBC is decreasing.
[2018-10-19] MEDS: FUROSEMIDE 20 MG TABLET PO SCH (14:51)
[2018-10-19] MEDS: SODIUM CHLORIDE FLUSH 0.9% 10 ML SYRINGE IVP PRN (17:34)
[2018-10-19] MEDS: diphenhydrAMINE 25 MG CAPSULE PO PRN ×2 (18:20→22:40)
[2018-10-19] MEDS ORDERED: TRIAMCINOLONE 0.5% CREAM 15 GM TUBE TOP SCH (21:00)
[2018-10-19] MEDS ORDERED: CETIRIZINE 10 MG TABLET PO SCH (23:33)
[2018-10-20] MEDS: CLINDAMYCIN 150 MG CAPSULE PO SCH ×5 (00:21→23:39)
[2018-10-20] MEDS: ZOLPIDEM 5 MG TABLET PO PRN ×2 (00:32→23:39)
[2018-10-20 05:49] LABS: BASOPHILS % (AUTO) 0.1 %; EOSINOPHILS % (AUTO) 0.1 %; HGB - HEMOGLOBIN 9.2 g/dL (12.0-16.0); LYMPHOCYTES # (AUTO) 0.6 10^3/uL (1.5-3.5); LYMPHOCYTES % (AUTO) 3.5 %; MEAN CORPUSCULAR HEMOGLOBIN 29.3 pg (27.0-31.0); MEAN CORPUSCULAR HGB CONC 32.8 g/dL (32.0-36.0); MEAN CORPUSCULAR VOLUME 89.3 fL (81.0-99.0); MEAN PLATELET VOLUME 7.5 fL (7.9-10.8); MONOCYTES # (AUTO) 0.6 10^3/uL (0.0-1.0); MONOCYTES % (AUTO) 3.4 %; NEUTROPHILS # (AUTO) 15.4 10^3/uL (1.5-6.6); NEUTROPHILS % (AUTO) 92.9 %; PLT - PLATELET COUNT 221 10^3/uL (130-450); RED BLOOD COUNT 3.13 10^6/uL (4.20-5.40); WHITE BLOOD COUNT 16.5 x10^3/uL (4.8-10.8)
[2018-10-20 05:52] LABS: INR 1.3 (0.8-1.2)
[2018-10-20 05:54] LABS: CALCIUM 7.6 mg/dL (8.5-10.3); CREATININE 1.4 mg/dL (0.4-1.0)
[2018-10-20] MEDS: SODIUM CHLORIDE FLUSH 0.9% 10 ML SYRINGE IVP SCH ×3 (07:46→19:08)
[2018-10-20] MEDS ORDERED: BUFFERED LIDOCAINE 10 ML SYRINGE SUBQ ONE (08:40)
[2018-10-20] MEDS: TRIAMCINOLONE 0.1% CREAM 15 GM TUBE TOP SCH ×2 (09:22→22:23)
[2018-10-20] MEDS: FUROSEMIDE 20 MG TABLET PO SCH (09:22)
[2018-10-20] MEDS: METOPROLOL SUCCINATE 25 MG TABLET PO SCH ×2 (09:23→22:23)
[2018-10-20] MEDS: MULTIVITAMIN W/MINERALS TABLET PO SCH (09:23)
[2018-10-20] MEDS: CETIRIZINE 10 MG TABLET PO SCH (09:23)
[2018-10-20] MEDS: ZINC SULFATE 220 MG CAPSULE PO SCH (09:23)
[2018-10-20] MEDS: CITALOPRAM 10 MG TABLET PO SCH (09:23)
[2018-10-20] MEDS: diphenhydrAMINE 25 MG CAPSULE PO PRN ×2 (09:23→16:08)
[2018-10-20] MEDS: POLYETHYLENE GLYCOL 3350 17 GM PACKET PO SCH (09:25)
[2018-10-20] MEDS: DOFETILIDE 250 MCG PO SCH ×2 (09:26→22:23)
[2018-10-20] MEDS: ALBUTEROL NEB 2.5 MG/3 ML INH PRN ×2 (11:55→16:10)
[2018-10-20] MEDS: hydrOXYzine PAMOATE 25 MG CAPSULE PO PRN (12:12)
--- NOTE | 2018-10-20 15:50 | PROVIDER PROGRESS NOTE ---
Subjective - Prog Note Date Prog Note Date: 10/20/18 Prog Note Time: 16:00 - Subjective Subjective: Patient she feels a tiny bit better. But still intensely pruritic everywhere. She was immediately miserable with the IV steroids from the day before yesterday so I stopped them yesterday. She is only on topical steroids right now. She got up with physical therapy today and did a few steps. She is able to get up to the chair. It wiped her out. Her son sent me photos of what her rash looked like on day 1. I can see whether they are alarmed. Her rash, overall, is much worse now than it was on day 1. At that point in time it was scattered red raised areas that look like a maculopapular rash no greater than 1 cm big. Then it progressed to that sandpapery diffuse redness with spontaneous peeling of the skin from head to toe. Today she is starting to improve. There is less dense redness. It is fading from face to body. The most red part of her right now is her back and arms. Face is started to be normal. Chest wall is starting to be a little normal. The irregular quarter to dollar-sized lesions on her anterior thighs are starting to fade. The diffuse flaking of her skin is improving. Current Medications - Current Medications Current Medications: Active Medications Acetaminophen (Tylenol) 650 mg PO Q4HR PRN PRN Reason: Pain 1 to 4 Last Admin: 10/18/18 21:43 Dose: 650 mg Albuterol () 2.5 mg INH RTQ4H PRN PRN Reason: Wheezing Last Admin: 10/20/18 11:55 Dose: 2.5 mg Cetirizine HCl (Zyrtec) 5 mg PO DAILY BECCA Last Admin: 10/20/18 09:23 Dose: 5 mg Citalopram Hydrobromide (Celexa) 20 mg PO DAILY BECCA Last Admin: 10/20/18 09:23 Dose: 20 mg Clindamycin HCl (Cleocin) 150 mg PO Q6HR BECCA Last Admin: 10/20/18 12:12 Dose: 150 mg Diphenhydramine HCl (Benadryl) 50 mg PO Q4HR PRN PRN Reason: Allergy Symptoms Last Admin: 10/20/18 09:23 Dose: 50 mg Furosemide (Lasix) 20 mg PO DAILY [facility] Last Admin: 10/20/18 09:22 Dose: 20 mg Hydroxyzine Pamoate (Vistaril) 50 mg PO Q4HR PRN PRN Reason: pruritus Last Admin: 10/20/18 12:12 Dose: 50 mg Metoprolol Succinate (Toprol Xl) 25 mg PO BID [facility] Last Admin: 10/20/18 09:23 Dose: 25 mg Multivitamins/Minerals (Theragran M) 1 tab PO DAILYWM [facility] Last Admin: 10/20/18 09:23 Dose: 1 tab Non-Formulary Medication (Ketoconazole [Ketoconazole]) 1 applic TD DAILY PRN PRN Reason: Diaper Rash Ondansetron HCl (Zofran Inj) 4 mg IVP Q6HR PRN PRN Reason: Nausea / Vomiting Ondansetron HCl (Zofran Odt) 4 mg TL Q6HR PRN PRN Reason: Nausea / Vomiting (Dofetilide [ Dofetilide] 250 Mcg) Capsule 1 each PO BID [facility] Last Admin: 10/20/18 09:26 Dose: 1 each Polyethylene Glycol (Miralax) 17 gm PO DAILY [facility] Last Admin: 10/20/18 09:25 Dose: 17 gm Sodium Chloride (Normal Saline Flush 0.9%) 10 ml IVP PRN PRN PRN Reason: NEEDED PER PROVIDER ORDERS Last Admin: 10/19/18 17:34 Dose: 10 ml Sodium Chloride (Normal Saline Flush 0.9%) 10 ml IVP 0100,0900,1700 [facility] Last Admin: 10/20/18 09:25 Dose: 10 ml Triamcinolone Acetonide (Kenalog 0.1% Cream) 1 applic TOP BID [facility] Last Admin: 10/20/18 09:22 Dose: 1 applic Vitamin A/Vitamin D (Vitamin A & D Ointment) 1 applic TOP PRN PRN PRN Reason: Skin Care Last Admin: 10/17/18 20:38 Dose: 1 applic Zinc Sulfate () 220 mg PO DAILY [facility] Last Admin: 10/20/18 09:23 Dose: 220 mg Zolpidem Tartrate (Ambien) 5 mg PO QPM PRN PRN Reason: Insomnia Last Admin: 10/20/18 00:32 Dose: 5 mg Telmisartan [Micardis] 80 mg PO DAILY 01/14/14 Acetaminophen 1 tab PO Q6HR 06/15/18 Ketoconazole 1 applic TOP BID PRN 06/15/18 Spironolactone 25 mg PO DAILY 06/15/18 Albuterol 2.5 mg INH Q4H PRN 06/18/18 Albuterol Sulf [Ventolin Hfa Inhaler] 2 puffs INH Q4H PRN 06/18/18 Dofetilide 250 mcg PO BID 10/12/18 Citalopram Hydrobromide [Citalopram HBr] 20 mg PO DAILY 10/13/18 Doxazosin Mesylate 2 mg PO QPM 10/13/18 Doxycycline Hyclate 100 mg PO [id number] 10/13/18 Hydralazine HCl 25 mg PO TID 10/13/18 Ivermectin 18 mg PO ONCE 10/13/18 Metoprolol Succinate 25 mg PO BID 10/13/18 Mupirocin 2% Oint [Bactroban 2% Oint] 1 applic TOP BID 10/13/18 Nystatin 1 applic TOP BID PRN 10/13/18 Triamcinolone 0.1% Oint [Kenalog 0.1% Oint] 1 applic TOP BID PRN 10/13/18 Warfarin Sodium 1.25 mg PO MOWEFR@0900 10/13/18 Warfarin Sodium 2.5 mg PO SUTUTHSA@0900 10/13/18 predniSONE [Deltasone] 80 mg PO ONCE 10/13/18 Objective - Vital Signs/Intake & Output Reviewed Vital Signs: Yes Vital Signs: Vital Signs x48h Temp Pulse Pulse Pulse Pulse Resp BP 10/20/18 11:55 64 16 10/20/18 11:00 66 98 147/91 H 10/20/18 09:28 36.7 C 60 18 10/20/18 08:00 36.4 C L 63 20 BP BP Pulse Ox 10/20/18 11:55 10/20/18 11:00 108/52 L 10/20/18 09:28 156/58 H 96 10/20/18 08:00 152/62 H 95 Intake & Output: Intake & Output 10/17/18 10/18/18 10/19/18 10/20/18 23:59 23:59 23:59 23:59 Intake Total 2778.334 5648.750 2088.083 630 Output Total 550 950 750 150 Balance 2228.334 4698.750 1338.083 480 - Objective General Appearance: positive: Alert, Other (Hoarse voice, morbidly obese, elderly female who is just exhausted. But she says that she may be a little bit better than yesterday.) Eyes Bilateral: positive: PERRL, EOMI ENT: positive: Other (Buccal ulcer is healed) Neck: negative: Stiff neck, Carotid bruit Respiratory: positive: Chest non-tender, Wheezes (She states that this is not a new problem. In her life she intermittently wheezes and intermittently takes albuterol. She is waiting for the field technician to give her a treatment.). negative: Rales, Rhonchi Cardiovascular: positive: Irregularly irregular. negative: Gallop/S4, Friction rub Abdomen: positive: Non-tender, Nml bowel sounds, No distention. negative: Guarding, Rebound Skin: positive: Dry, Skin rash Extremities: positive: Pedal edema Neurologic/Psychiatric: positive: Oriented x3, CN's nml (2-12), Motor nml, Weakness - Lab Results Fish Bones: 10/20/18 05:36 10/20/18 05:36 Other Labs: Lab Results x24hrs 10/20/18 10/20/18 10/20/18 Range/Units 05:36 05:36 05:36 WBC 16.5 H (4.8-10.8) x10^3/uL RBC 3.13 L (4.20-5.40) 10^6/uL Hgb 9.2 L (12.0-16.0) g/dL Hct 28.0 L (37.0-47.0) % MCV 89.3 (81.0-99.0) fL MCH 29.3 (27.0-31.0) pg MCHC 32.8 (32.0-36.0) g/dL RDW 15.0 (12.0-15.0) % Plt Count 221 (130-450) 10^3/uL MPV 7.5 L (7.9-10.8) fL Neut # (Auto) 15.4 H (1.5-6.6) 10^3/uL Lymph # (Auto) 0.6 L (1.5-3.5) 10^3/uL [place] # (Auto) 0.6 (0.0-1.0) 10^3/uL Eos # (Auto) 0.0 (0.0-0.7) 10^3/uL Baso # (Auto) 0.0 (0.0-0.1) 10^3/uL Absolute Nucleated RBC 0.00 x10^3/uL Nucleated RBC % 0.0 /100WBC PT 15.0 H (9.9-12.6) secs INR 1.3 H (0.8-1.2) Sodium 138 (135-145) mmol/L Potassium 4.7 (3.5-5.0) mmol/L Chloride 109 (101-111) mmol/L Carbon Dioxide 22 (21-32) mmol/L Anion Gap 7.0 (6-13) BUN 39 H (6-20) mg/dL Creatinine 1.4 H (0.4-1.0) mg/dL Estimated GFR (MDRD) 36 L (>89) Glucose 117 H (70-100) mg/dL Calcium 7.6 L (8.5-10.3) mg/dL ABX Reporting Has patient been on IV antibiotics over the past 48 hours?: Yes Sepsis Event Note (H) - Evaluation Current Stage of Sepsis: Ruled out Possible source of Sepsis: positive: Skin/soft tissue - Sepsis Criteria Sepsis Criteria: WBC count greater than 10% bands Assessment/Plan - Problem List (1) Cellulitis of both lower extremities Impression: Blood cultures x2 were drawn, and she has negative results at 5 days. WBC continues to slowly go down. 15.7>12.7>13.6-> today 16.5 off of IV abx IV vancomycin and IV clindamycin were started and continued for Day # 6 clindamycin and Day #4 for vancomycin. Both of those have been IV but her creat is slowly climbing (1.0>1.3>1.6) so I stopped IV abx and go to oral Clinda on 10/18 Continue wound dressing changes QOD, as advised by [facility] wound care provider, Wayne. Wayne was going to try to get to Q3days dressing change for ease of Home Health Scheduling but this woman is so weak, I think she will need SNF. Gaila also feels that she has such serous drainage that she will need daily wound care. Son had been at the bedside 10/14 and he agrees but she is reluctant for SNF wound care. Both sons here (Jimi and Pipo) 10/18 and expressed disappointment that she had not recovered more quickly. Plan is for ordering PT, when she is not having such severe leg pain. So far she has not been able to do PT and has been in bed. Today she has been up and worked a little w PT. I had hoped to transfer to SNF last week but her creat rise and continued rash is a problem that needs to be addressed before she goes to rehab. With today's slow, slow, incrementally slow improvement, will hope for discharge to SNF on 10/23 (2) Diffuse papular rash Assessment/Plan: The exact etiology is unclear, presumably some allergic reaction. I spoke to her price analyst, Cedric Lawson [phone] on 10/14 and updated him as well . She was seen by him October 03 for skin biopsy after presenting with a bright red peeling diffuse body rash. 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 The differential diagnosis for that would be arthropod reaction, contact dermatitis, or eczematoid skin disease. Least likely was a drug reaction. She is on Tikosyn which is a sulfa derivative and she allergic to sulfa. But again, it is not felt to be a drug reaction. After October 03, she was put on steroids. She was also put on ivermectin 3 mg tabs (6 then and 6 one week later) and permethrin on 10/07/18 thinking that it was an arthropod attack. She seemed to improve and was better, but when she returned in follow-up she remarked that her legs were now quite painful and she had developed a blistering reaction of her legs. So she was put on abx for Staph, doxycycline. Told to come back and next thing, she was in our ER 10/12/18 with large bullous sloughing of the skin of her legs and cellulitis. The Dermatology department at [place] was contacted by the ER that day and photos of lower extremities were reviewed They do not think it is Zbigniew's Sabino or Staph Scalded Skin Syndrome Recommendation is to treat infection. Also that patient will need to follow up with dermatology later Continue symptomatic treatment, as above. I spoke to dermatology again 10/15 and I sent them copies of the photos that were done 10/14. My concern is continued peeling and blistering. She is going to lose all of her skin over her lower extremities at the rate the skin is c oming off. Dr. Pearce has reviewed the pictures. He feels we are on the right track. He feels that the blisters on her legs are edema related. They are not even related to chronic venous stasis dermatitis but just a simple sudden edema causing blistering of her skin. He recommends a protective ointment or dressing such as Telfa or Vaseline plus Davie wrap compression. 10/[address] Andrade since her rash in getting worse on her body. When I first met her she had a sandpapery red rash on her face that came and went. Different parts of her face over different days. Her back was sandpapery, and forearms were starting to get sandpapery as well as the skin of the triceps area. She is intensely pruritic. Skin is tender to touch. She has a small ulcer in the left buccal mucosa that I think is more due to dentures than to true buccal pathology. She was already peeling diffusely and it was a "snowflake" of a storm from her skin on the floor and on the bed. She seemed to be on the mend for the 2 or 3 days I have been taking care of her and today she is much worse. She now has spontaneous peeling of the palms of her hands with her fingers being cyanotic. She is shivering but no fever and no drop in BP. She has a dense red tender rash along the mid axillary line going to her back. Skin is starting to peel again. Overall she is very fatigued, weak. Creatinine is rising possibly from loss of fluids in her legs and vancomycin. I have taken more photos and sent them to Dr. Andrade and she will review thru [email or web address]. Over the phone she is recommending that I do punch biopsies for immunofluorescence, apply 0.1% topical triamcinolone cream from face to body. And start prednisone p.o. I have also updated Cedric Lawson as well. He may be calling Dr. Horowitz to discuss the case with her himself. He also may come in to see the patient on Saturday (today is Saturday). Dr. Horowitz does not feel the need for her to be transferred. I will ask for supplies for punch biopsy for today.Procedure note dictated under separate note (3) Atrial fibrillation Qualifiers: Atrial fibrillation type: chronic Qualified Code(s): I48.2 - Chronic atrial fibrillation Assessment/Plan: Heart rate is controlled.Continue metoprolol twice daily. I have stopped all her BP meds except this. Resume daily Coumadin when INR 2-3, follow daily INR. INR 2.0 so coumadin resumed, after 1 dose of coumadin 2.5 mg, INR 6 on 10/18 so coumadin held again. 10/19 1.8 10/20 1.3 resume at 1 mg po daily (4) Supratherapeutic INR Assessment/Plan: This is likely related to her use of antibiotics for several weeks. Vitamin K was administered 10/13 when morning's INR was greater than 5. INR done daily. Resumed Coumadin when subtherapeutic, target INR is 2-3 She was INR 2.0 on the and her coumadin had been held prior to that. I resumed it at 2.5 mg 10/18 INR 6.0 Hold coumadin again and give Vitamin K 10 mg po on 10/18 10/19 1.8 10/20 1.3 resume coumadin 1 mg po daily (5) JARED Assessment/Plan: Her creat has come up 1.0>1.3>1.6. She has poor IV access and skin is edematous in forearms. I suspect low BP and some mild intravolume depletion from leg oozing is responsible. I started 0.9 NS 10/[address] postive on I/O. So I am stopping the NS and changing to LR at 85 cc/Hr on 10/18. Denies sob but she isn't mobile enough to have larios. 10/19 I stopped LR and start lasix 20 mg po creat was 1.4 10/20 creat 1.4 (6) Chronic diastolic (congestive) heart failure Assessment/Plan: Echo was just done in Jul 2018, showing preserved LVEF and diastolic dysfunction present. She was not in a CHF exacerbation this admission. Start lasix 20 mg po for diffuse body edema and third spacing on 10/19 (7) Hx of essential hypertension Assessment/Plan: She was on micardis, metoprolol, spironolactone,and doxasozin. 10/13 she was 108 systolic and I wrote for parameters to hold for systolic <110. 10/14 buffer copper rewrote to hold for systolic <130 and that is appropriate in view of creatinine. Hydralazine stopped 10/18. She will be continued on metoprolol to avoid rebound tachycardia. This will also help her A. fib. As of today her blood pressure varies between 108-156 systolic. I am still not resuming any of her blood pressure medicines except for the metoprolol. (8) Depression Assessment/Plan: Continue her home med. (9) Insomnia Qualifiers: Insomnia type: unspecified Qualified Code(s): G47.00 - Insomnia, unspecified Assessment/Plan: This is 1 of her biggest complaints. Even with Ambien she cannot get to sleep. Continue prn. I don't really want to add more and want to avoid sedation. (10) Sepsis Qualifiers: Sepsis type: sepsis due to unspecified organism Qualified Code(s): A41.9 - Sepsis, unspecified organism Assessment/Plan: This provider thinks that this diagnosis is an error. The only criteria she met for sepsis was that of an elevated white cell count. She did not have fever, blood pressure changes, hypoxic, lactic acidosis. I do not think she had sepsis. HR controlled and WBC is decreasing.
[2018-10-20] MEDS: ACETAMINOPHEN 325 MG TABLET PO PRN (16:09)
--- NOTE | 2018-10-20 18:58 | PROCEDURE REPORT ---
Hospitalist Procedure Note - Procedure Note Procedure Note: October 20, 2018 18: 52 The patient has been here since October 12 with a rash that started approximately late August, first few days of September. It started as a flat macular papular red rash on her face, neck, diffusely pruritic. Then became a diffuse red sandpap arnold rash resulting in intense pruritus, diffuse skin peeling. Her legs became very edematous very quickly with the use of steroids and her skin had a "degloving" of the thighs and calves. She does not respond to IV steroids. She gets quite miserable with them. I been giving her topical steroids, cellulitis is treated for with antibiotics. We are still not clear as to the cause of the rash. [facility] dermatology recommends direct immunofluorescent biopsy. I obtained consent from the patient and her son. Both in agreement. Complications of bleeding and possible skin infection discussed. Procedure: 1% lidocaine that is buffered was used to inject 2 areas of the right anterior thigh. Adequate anesthesia was obtained. 2 separate 4 mm punch biopsies were done. One was done in a lesion, the other was done outside of the lesion. Each specimen was labeled and placed in a direct immunofluorescent fixative. The punch biopsy sites were closed with 4-0 nylon suture x1. Specimen submitted for pathologic diagnosis Patient to keep the area clean and dry with the help of nursing.. Remove suture on October 25.
[2018-10-20] MEDS: ONDANSETRON ODT 4 MG TABLET TL PRN (19:40)
[2018-10-21] MEDS: SODIUM CHLORIDE FLUSH 0.9% 10 ML SYRINGE IVP SCH ×4 (01:34→23:36)
[2018-10-21 05:34] LABS: BASOPHILS # (AUTO) 0.1 10^3/uL (0.0-0.1); BASOPHILS % (AUTO) 0.4 %; EOSINOPHILS # (AUTO) 0.1 10^3/uL (0.0-0.7); EOSINOPHILS % (AUTO) 0.4 %; LYMPHOCYTES # (AUTO) 0.7 10^3/uL (1.5-3.5); LYMPHOCYTES % (AUTO) 3.6 %; MEAN CORPUSCULAR HEMOGLOBIN 29.2 pg (27.0-31.0); MEAN CORPUSCULAR HGB CONC 32.6 g/dL (32.0-36.0); MEAN CORPUSCULAR VOLUME 89.6 fL (81.0-99.0); MEAN PLATELET VOLUME 7.4 fL (7.9-10.8); MONOCYTES # (AUTO) 0.7 10^3/uL (0.0-1.0); MONOCYTES % (AUTO) 3.8 %; NEUTROPHILS # (AUTO) 16.9 10^3/uL (1.5-6.6); NEUTROPHILS % (AUTO) 91.8 %; PLT - PLATELET COUNT 254 10^3/uL (130-450); RED BLOOD COUNT 3.44 10^6/uL (4.20-5.40); RED CELL DISTRIBUTION WIDTH 15.4 % (12.0-15.0); WHITE BLOOD COUNT 18.4 x10^3/uL (4.8-10.8)
[2018-10-21] MEDS: diphenhydrAMINE 25 MG CAPSULE PO PRN (06:29)
[2018-10-21] MEDS: CLINDAMYCIN 150 MG CAPSULE PO SCH ×4 (06:29→23:36)
[2018-10-21] MEDS: POLYETHYLENE GLYCOL 3350 17 GM PACKET PO SCH (07:45)
[2018-10-21] MEDS: MULTIVITAMIN W/MINERALS TABLET PO SCH (09:15)
[2018-10-21] MEDS: CETIRIZINE 10 MG TABLET PO SCH (09:16)
[2018-10-21] MEDS: hydrOXYzine PAMOATE 25 MG CAPSULE PO PRN (09:16)
[2018-10-21] MEDS: FUROSEMIDE 20 MG TABLET PO SCH (09:16)
[2018-10-21] MEDS: METOPROLOL SUCCINATE 25 MG TABLET PO SCH ×2 (09:16→20:30)
[2018-10-21] MEDS: ZINC SULFATE 220 MG CAPSULE PO SCH (09:16)
[2018-10-21] MEDS: CITALOPRAM 10 MG TABLET PO SCH (09:16)
[2018-10-21] MEDS: TRIAMCINOLONE 0.1% CREAM 15 GM TUBE TOP SCH ×2 (09:16→20:31)
[2018-10-21] MEDS: DOFETILIDE 250 MCG PO SCH ×2 (09:17→20:30)
[2018-10-21] MEDS: ALBUTEROL NEB 2.5 MG/3 ML INH PRN (11:15)
--- NOTE | 2018-10-21 16:47 | PROVIDER PROGRESS NOTE ---
Assessment/Plan - Problem List (1) Cellulitis of both lower extremities Assessment/Plan: Blood cultures x2 were drawn, and she had negative results. WBC went down. IV vancomycin and IV clindamycin were started and continued for Day # 6 clindamycin and Day #4 for vancomycin. Both of those have been IV but her creat was slowly climbing (1.0>1.3>1.6) so the IV abx stopped and went to oral Clinda on 10/18/18. The shins have been treated with Wound Care management. (2) Diffuse papular rash Assessment/Plan: The exact etiology is unclear, presumably some allergic reaction.Her Trim Mechanic, Cedric Lawson [phone], was contacted on 10/14 and updated. She was seen by him October 03 for skin biopsy after presenting with a bright red peeling diffuse body rash. 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 The differential diagnosis for that would be arthropod reaction, contact dermatitis, or eczematoid skin disease. Least likely was a drug reaction. She was on Tikosyn which is a sulfa derivative and she allergic to sulfa. But again, it is not felt to be a drug reaction. After October 03, she was put on steroids. She was also put on ivermectin 3 mg tabs (6 then and 6 one week later) and permethrin on 10/07/18 thinking that it was an arthropod attack. She seemed to improve and was better, but when she returned in follow-up she remarked that her legs were now quite painful and she had developed a blistering reaction of her legs. So she was put on abx for Staph: doxycycline. Told to come back and next thing, she was in our ER 10/12/18 with large bullous sloughing of the skin of her legs and cellulitis. The Dermatology department at [facility] was contacted by the ER that day and photos of lower extremities were reviewed They do not think it is Zbigniew's Sabino or Staph Scalded Skin Syndrome. Recommended to treat infection. Continue symptomatic treatment, as above. dermatology was contacted again 10/15 and sent copies of the photos that were done 10/14. The concern is continued peeling and blistering. Dr. Pearce has reviewed the pictures. He feels we are on the right track. He feels that the blisters on her legs are edema related. They are not even related to chronic venous stasis dermatitis but just a simple sudden edema causing blistering of her skin. He recommended a protective ointment or dressing such as Telfa or Va seline plus [place] wrap compression. 10/18 Dr White spoke to Dr. Andrade since her rash was getting worse on her body: she first had a sandpapery red rash on her face that came and went in different parts of her face over different days. Her back was sandpapery, and forearms were starting to get sandpapery as well as the skin of the triceps area. She was intensely pruritic. Skin was tender to touch. She had a small ulcer in the left buccal mucosa probably due to dentures. She was already peeling diffusely and there was a "snowflake of a storm" from her skin on the floor and on the bed. She seemed to be on the mend for the 2 or 3 days then worsened. She had spontaneous peeling of the palms of her hands with her fingers being cyanotic. She has been shivering but no fever and no drop in BP. She has a dense red tender rash along the mid axillary line going to her back. Skin is starting to peel again. Overall she is very fatigued, weak. Creatinine is rising possibly from loss of fluids in her legs and prior vancomycin. More photos were taken and sent to Dr. Andrade and she was to review thru [email or web address]. Over the phone she recommended a punch biopsy for immunofluorescence, apply 0.1% topical triamcinolone cream from face to body. And start prednisone p.o. Dr White also updated Cedric Lawson as well. He may be calling Dr. Horowitz to discuss the case with her himself. He also thought he may come in to see the patient on 10/20/18, but did not. Dr. Horowitz does not feel the need for her to be transferred. She is being treated with topical creams, po Prednisone and Benadryl prn and Vistaril prn. The skin biopsy done by Dr White on 10/20/18, still has not had a pathology report. (3) Acute kidney injury superimposed on chronic kidney disease Assessment/Plan: Multifactorial etiology. Monitor renal labs daily. (4) Chronic diastolic (congestive) heart failure Assessment/Plan: She was put on low dose po Lasix several days ago. The weeping edema from the open painting lesions has decreased significantly, per Wayne Tariq, Wound Nurse. (5) Wheezing Assessment/Plan: I am concerned that this is cardiac asthma. Inhalers were ordered. Will obtain a BNP and Echo, if not done this admission, to evaluate volume status, LV and RV contractility. (6) Hx of essential hypertension Assessment/Plan: BP stable on current meds. (7) Depression Assessment/Plan: Stable on current Celexa. (8) Insomnia Qualifiers: Insomnia type: unspecified Qualified Code(s): G47.00 - Insomnia, unspecified Assessment/Plan: Possibly worsened due to steroids. Prn meds for insomnia ordered. (9) Hx of atrial fibrillation, no current medication Assessment/Plan: She is in sinus or atrial paced or dual chamber paced rhythm this admission. Telemetry was stable and was stopped 10/17/18. Her history of Afib and weather she was on anticoagulants, is unknown. - Current Meds Current Meds: Current Medications Generic Name Dose Route Start Last Admin Trade Name Freq PRN Reason Stop Dose Admin Acetaminophen 650 mg 10/12/18 20:50 10/20/18 16:09 Tylenol PO 650 mg Q4HR PRN Administration Pain 1 to 4 Albuterol 2.5 mg 10/13/18 15:30 10/21/18 11:15 INH 2.5 mg RTQ4H PRN Administration Wheezing Cetirizine HCl 5 mg 10/19/18 09:00 10/21/18 09:16 Zyrtec PO 5 mg DAILY BECCA Administration Citalopram Hydrobromide 20 mg 10/13/18 09:00 10/21/18 09:16 Celexa PO 20 mg DAILY BECCA Administration Clindamycin HCl 150 mg 10/19/18 18:00 10/21/18 12:03 Cleocin PO 150 mg Q6HR BECCA Administration Diphenhydramine HCl 50 mg 10/18/18 21:54 10/21/18 06:29 Benadryl PO 50 mg Q4HR PRN Administration Allergy Symptoms Furosemide 20 mg 10/19/18 09:00 10/21/18 09:16 Lasix PO 20 mg DAILY BECCA Administration Hydroxyzine Pamoate 50 mg 10/18/18 23:29 10/21/18 09:16 Vistaril PO 50 mg Q4HR PRN Administration pruritus Metoprolol Succinate 25 mg 10/16/18 07:04 10/21/18 09:16 Toprol Xl PO 25 mg BID BECCA Administration Multivitamins/Minerals 1 tab 10/15/18 12:00 10/21/18 09:15 Theragran M PO 1 tab DAILYWM BECCA Administration Ondansetron HCl 4 mg 10/14/18 13:20 10/20/18 19:40 Zofran Odt TL 4 mg Q6HR PRN Administration Nausea / Vomiting (Dofetilide [ 1 each 10/13/18 09:00 10/21/18 09:17 Dofetilide] 250 Mcg) PO 1 each Capsule BID BECCA Administration Polyethylene Glycol 17 gm 10/13/18 09:00 10/21/18 07:45 Miralax PO Not Given DAILY BECCA Sodium Chloride 10 ml 10/12/18 20:50 10/19/18 17:34 Normal Saline Flush 0.9% IVP 10 ml PRN PRN Administration NEEDED PER PROVIDER ORDERS Sodium Chloride 10 ml 10/13/18 01:00 10/21/18 09:16 Normal Saline Flush 0.9% IVP 10 ml 0100,0900,1700 BECCA Administration Triamcinolone Acetonide 1 applic 10/18/18 12:00 10/21/18 09:16 Kenalog 0.1% Cream TOP 1 applic BID BECCA Administration Vitamin A/Vitamin D 1 applic 10/14/18 15:17 10/17/18 20:38 Vitamin A & D Ointment TOP 1 applic PRN PRN Administration Skin Care Zinc Sulfate 220 mg 10/18/18 09:00 10/21/18 09:16 PO 220 mg DAILY BECCA Administration Zolpidem Tartrate 5 mg 10/12/18 20:50 10/20/18 23:39 Ambien PO 5 mg QPM PRN Administration Insomnia - Lab Result Fish Bone Diagrams: 10/21/18 05:15 10/20/18 05:36 Subjective - Subjective Patient Reports: Feeling Better Nursing Reports: Other (Was able to participate in PT today, now fatigued, more wheezy then yesterday.) Objective Vital Signs: Vital Signs - 24 hr 10/20/18 10/20/18 10/21/18 22:18 23:30 08:00 Temperature 37.0 C 36.6 C 36.6 C Heart Rate Heart Rate [ 62 60 58 L Brachial] Respiratory 20 16 16 Rate Blood Pressure 138/47 H 146/49 H 152/48 H [Right Brachial artery] O2 Saturation 96 94 96 10/21/18 10/21/18 10/21/18 09:15 11:15 15:58 Temperature 36.9 C Heart Rate 62 62 Heart Rate [ 65 Brachial] Respiratory 16 16 20 Rate Blood Pressure 112/85 H [Right Brachial artery] O2 Saturation 97 Oxygen O2 Source Room air I&O (Last 24 Hrs): Intake and Output Totals x24h 10/19/18 10/20/18 10/21/18 23:59 23:59 23:59 Intake Total 2088.083 1450 460 Output Total 750 400 300 Balance 6360.075 8482 160 General: Alert, Mild distress, Other (She is shivering, under 4 blankets. She is wheezing when she speaks.) HEENT: Mucous membr. moist/pink Neck: Supple Neuro: Non Focal Cardiovascular: Regular rate, No murmurs Respiratory: Wheezes Extremities: Other (Shins wrapped. 1+ edema) Comments/Notes: Diffuse red trash of thorax, arms and legs. - Results Results: Laboratory Results WBC 18.4 x10^3/uL (4.8-10.8) H 10/21/18 05:15 RBC 3.44 10^6/uL (4.20-5.40) L 10/21/18 05:15 Hgb 10.0 g/dL (12.0-16.0) L 10/21/18 05:15 Hct 30.8 % (37.0-47.0) L 10/21/18 05:15 MCV 89.6 fL (81.0-99.0) 10/21/18 05:15 MCH 29.2 pg (27.0-31.0) 10/21/18 05:15 MCHC 32.6 g/dL (32.0-36.0) 10/21/18 05:15 RDW 15.4 % (12.0-15.0) H 10/21/18 05:15 Plt Count 254 10^3/uL (130-450) 10/21/18 05:15 MPV 7.4 fL (7.9-10.8) L 10/21/18 05:15 Neut # (Auto) 16.9 10^3/uL (1.5-6.6) H 10/21/18 05:15 Lymph # (Auto) 0.7 10^3/uL (1.5-3.5) L 10/21/18 05:15 [place] # (Auto) 0.7 10^3/uL (0.0-1.0) 10/21/18 05:15 Eos # (Auto) 0.1 10^3/uL (0.0-0.7) 10/21/18 05:15 Baso # (Auto) 0.1 10^3/uL (0.0-0.1) 10/21/18 05:15 Absolute Nucleated RBC 0.00 x10^3/uL 10/21/18 05:15 Total Counted 100 10/12/18 15:50 Band Neuts % (Manual) 2 % (0-10) 10/12/18 15:50 Abnorm Lymph % (Manual) 0 % 10/12/18 15:50 Nucleated RBC % 0.0 /100WBC 10/21/18 05:15 Neutrophils # (Manual) 25.0 10^3/uL (1.5-6.6) H 10/12/18 15:50 Lymphocytes # (Manual) 0.5 10^3/uL (1.5-3.5) L 10/12/18 15:50 Monocytes # (Manual) 0.5 10^3/uL (0.0-1.0) 10/12/18 15:50 Eosinophils # (Manual) 0.3 10^3/uL (0-0.7) 10/12/18 15:50 Basophils # (Manual) 0.0 10^3/uL (0-0.1) 10/12/18 15:50 Differential Comment MANUAL DIFFERENTIAL 10/12/18 15:50 Manual Slide Review Indicated 10/12/18 15:50 RBC Morph Micro Appear 1+ ANISOCYTOSIS (NORMAL) 1+ HYPOCHROMASIA (NORMAL) 1+ OVALOCYTES (NORMAL) 1+ BELEN CELLS (NORMAL) 10/12/18 15:50 RBC Morph Micro Appear 1+ ANISOCYTOSIS (NORMAL) 1+ HYPOCHROMASIA (NORMAL) 1+ OVALOCYTES (NORMAL) 1+ BELEN CELLS (NORMAL) 10/12/18 15:50 RBC Morph Micro Appear 1+ ANISOCYTOSIS (NORMAL) 1+ HYPOCHROMASIA (NORMAL) 1+ OVALOCYTES (NORMAL) 1+ BELEN CELLS (NORMAL) 10/12/18 15:50 RBC Morph Micro Appear 1+ ANISOCYTOSIS (NORMAL) 1+ HYPOCHROMASIA (NORMAL) 1+ OVALOCYTES (NORMAL) 1+ BELEN CELLS (NORMAL) 10/12/18 15:50 ESR 20 mm/Hr (0-30) 10/19/18 06:00 PT 15.0 secs (9.9-12.6) H 10/20/18 05:36 INR 1.3 (0.8-1.2) H 10/20/18 05:36 Sodium 138 mmol/L (135-145) 10/20/18 05:36 Potassium 4.7 mmol/L (3.5-5.0) 10/20/18 05:36 Chloride 109 mmol/L (101-111) 10/20/18 05:36 Carbon Dioxide 22 mmol/L (21-32) 10/20/18 05:36 Anion Gap 7.0 (6-13) 10/20/18 05:36 BUN 39 mg/dL (6-20) H 10/20/18 05:36 Creatinine 1.4 mg/dL (0.4-1.0) H 10/20/18 05:36 Estimated GFR (MDRD) 36 (>89) L 10/20/18 05:36 Glucose 117 mg/dL (70-100) H 10/20/18 05:36 Lactic Acid 1.2 mmol/L (0.5-2.2) 10/12/18 18:52 Calcium 7.6 mg/dL (8.5-10.3) L 10/20/18 05:36 Phosphorus 4.2 mg/dL (2.5-4.6) 10/15/18 05:55 Magnesium 1.7 mg/dL (1.7-2.8) 10/15/18 05:55 Total Bilirubin 0.5 mg/dL (0.2-1.0) 10/12/18 15:50 AST 19 IU/L (10-42) 10/12/18 15:50 ALT 12 IU/L (10-60) 10/12/18 15:50 Alkaline Phosphatase 41 IU/L (42-121) L 10/12/18 15:50 C-Reactive Protein 8.4 mg/dL (0-1.0) H 10/12/18 15:50 B-Natriuretic Peptide 363 pg/mL (5-100) H 10/12/18 15:50 Total Protein 6.3 g/dL (6.7-8.2) L 10/12/18 15:50 Albumin 3.3 g/dL (3.2-5.5) 10/12/18 15:50 Globulin 3.0 g/dL (2.1-4.2) 10/12/18 15:50 Albumin/Globulin Ratio 1.1 (1.0-2.2) 10/12/18 15:50 Lipase 28 U/L (22-51) 10/12/18 15:50 Urine Color YELLOW 10/18/18 22:10 Urine Clarity CLEAR (CLEAR) 10/18/18 22:10 Urine pH 5.5 PH (5.0-7.5) 10/18/18 22:10 Ur Specific [place] >=1.030 (1.002-1.030) H 10/18/18 22:10 Urine Protein NEGATIVE mg/dL (NEGATIVE) 10/18/18 22:10 Urine Glucose (UA) NEGATIVE mg/dL (NEGATIVE) 10/18/18 22:10 Urine Ketones NEGATIVE mg/dL (NEGATIVE) 10/18/18 22:10 Urine Occult Blood NEGATIVE (NEGATIVE) 10/18/18 22:10 Urine Nitrite NEGATIVE (NEGATIVE) 10/18/18 22:10 Urine Bilirubin NEGATIVE (NEGATIVE) 10/18/18 22:10 Urine Urobilinogen 0.2 (NORMAL) E.U./dL (NORMAL) 10/18/18 22:10 Ur Leukocyte Esterase NEGATIVE (NEGATIVE) 10/18/18 22:10 Urine RBC 0-5 /HPF (0-5) 10/12/18 18:04 Urine WBC 0-3 /HPF (0-5) 10/12/18 18:04 Ur Squamous Epith Cells MANY Squamous (<= Few) H 10/12/18 18:04 Urine Bacteria Rare /HPF (None Seen) 10/12/18 18:04 Ur Microscopic Review NOT INDICATED 10/18/18 22:10 Urine Culture Comments NOT INDICATED 10/18/18 22:10 Last Dose Date 10/15/18 10/16/18 20:33 Last Dose Time 220510/16/18 20:33 Vancomycin Trough 16.2 ug/mL (10.0-20.0) 10/16/18 20:33 Sepsis Event Note (H) - Evaluation Current Stage of Sepsis: Ruled out Possible source of Sepsis: positive: Skin/soft tissue - Sepsis Criteria Sepsis Criteria: WBC count greater than 10% bands
[2018-10-21] MEDS: ACETAMINOPHEN 325 MG TABLET PO PRN (18:32)
[2018-10-21] MEDS: ZOLPIDEM 5 MG TABLET PO PRN (23:47)
[2018-10-22] MEDS: CLINDAMYCIN 150 MG CAPSULE PO SCH ×3 (05:46→17:52)
[2018-10-22] MEDS: POLYETHYLENE GLYCOL 3350 17 GM PACKET PO SCH (07:48)
[2018-10-22 09:40] LABS: CALCIUM 7.8 mg/dL (8.5-10.3); CREATININE 1.3 mg/dL (0.4-1.0)
[2018-10-22] MEDS: METOPROLOL SUCCINATE 25 MG TABLET PO SCH ×2 (09:55→20:54)
[2018-10-22] MEDS: ZINC SULFATE 220 MG CAPSULE PO SCH (09:55)
[2018-10-22] MEDS: diphenhydrAMINE 25 MG CAPSULE PO PRN ×2 (09:55→22:34)
[2018-10-22] MEDS: CITALOPRAM 10 MG TABLET PO SCH (09:55)
[2018-10-22] MEDS: TRIAMCINOLONE 0.1% CREAM 15 GM TUBE TOP SCH ×2 (09:56→20:54)
[2018-10-22] MEDS: DOFETILIDE 250 MCG PO SCH ×2 (09:56→20:54)
[2018-10-22] MEDS: MULTIVITAMIN W/MINERALS TABLET PO SCH (09:56)
[2018-10-22] MEDS: SODIUM CHLORIDE FLUSH 0.9% 10 ML SYRINGE IVP SCH ×2 (09:56→17:52)
[2018-10-22] MEDS: CETIRIZINE 10 MG TABLET PO SCH (09:56)
[2018-10-22] MEDS: FUROSEMIDE 20 MG TABLET PO SCH (09:56)
[2018-10-22] MEDS: hydrOXYzine PAMOATE 25 MG CAPSULE PO PRN (13:37)
--- NOTE | 2018-10-22 18:07 | PROVIDER PROGRESS NOTE ---
Assessment/Plan - Problem List (1) Cellulitis of both lower extremities Assessment/Plan: Patient on po Clindamycin and gets topical wound care and wraps. Will plan a 10-14 day total course of antibiotics. The Echo shows severe pulmonary HTN, which may be the cause of her chronic leg edema, she needs chronic diuretics and leg elevation. (2) Diffuse papular rash Assessment/Plan: Today is the best she has felt. The skin biopsy from 10/20 shoed spongiosis dermatitis with neutrophils. I tried reaching Dermatology, but no call back yet. She is on 2 topical creams, po Benadryl and po Hydroxizine and po Prednisone. Will plan DCh tomorrow to a SNF, discussed with SW. (3) Acute kidney injury superimposed on chronic kidney disease Assessment/Plan: Abnormal but stable. (4) Chronic diastolic (congestive) heart failure Assessment/Plan: Stable edema and lessened drainage from blisters, once po Lasix started. The BNP was 700, compared to 300 at admission and she is gaine weight since admission. The Echo showed a normal LVEF, diastolic dysfunction present, RV size normal but PA pressure severely elevated at 72 mmHg. She will need chronic diuretics and leg elevation. (5) Hx of essential hypertension Assessment/Plan: Stable on current meds. (6) Depression Assessment/Plan: Stable on current meds. (7) Insomnia Qualifiers: Insomnia type: unspecified Qualified Code(s): G47.00 - Insomnia, unspecified Assessment/Plan: This was the first night she slept and is rested today. (8) Hx of atrial fibrillation, no current medication Assessment/Plan: Currently in atrial paced or dual chamber paced rhythm. (9) Wheezing Assessment/Plan: Resoved. It may have been from LV diastolic failure, therefore continue diuretics. - Current Meds Current Meds: Current Medications Generic Name Dose Route Start Last Admin Trade Name Freq PRN Reason Stop Dose Admin Acetaminophen 650 mg 10/12/18 20:50 10/21/18 18:32 Tylenol PO 650 mg Q4HR PRN Administration Pain 1 to 4 Albuterol 2.5 mg 10/13/18 15:30 10/21/18 11:15 INH 2.5 mg RTQ4H PRN Administration Wheezing Cetirizine HCl 5 mg 10/19/18 09:00 10/22/18 09:56 Zyrtec PO 5 mg DAILY BECCA Administration Citalopram Hydrobromide 20 mg 10/13/18 09:00 10/22/18 09:55 Celexa PO 20 mg DAILY BECCA Administration Clindamycin HCl 150 mg 10/19/18 18:00 10/22/18 17:52 Cleocin PO 150 mg Q6HR BECCA Administration Diphenhydramine HCl 50 mg 10/18/18 21:54 10/22/18 09:55 Benadryl PO 50 mg Q4HR PRN Administration Allergy Symptoms Furosemide 20 mg 10/19/18 09:00 10/22/18 09:56 Lasix PO 20 mg DAILY BECCA Administration Hydroxyzine Pamoate 50 mg 10/18/18 23:29 10/22/18 13:37 Vistaril PO 50 mg Q4HR PRN Administration pruritus Metoprolol Succinate 25 mg 10/16/18 07:04 10/22/18 09:55 Toprol Xl PO 25 mg BID BECCA Administration Multivitamins/Minerals 1 tab 10/15/18 12:00 10/22/18 09:56 Theragran M PO 1 tab DAILYWM BECCA Administration Ondansetron HCl 4 mg 10/14/18 13:20 10/20/18 19:40 Zofran Odt TL 4 mg Q6HR PRN Administration Nausea / Vomiting (Dofetilide [ 1 each 10/13/18 09:00 10/22/18 09:56 Dofetilide] 250 Mcg) PO 1 each Capsule BID BECCA Administration Polyethylene Glycol 17 gm 10/13/18 09:00 10/22/18 07:48 Miralax PO Not Given DAILY BECCA Sodium Chloride 10 ml 10/12/18 20:50 10/19/18 17:34 Normal Saline Flush 0.9% IVP 10 ml PRN PRN Administration NEEDED PER PROVIDER ORDERS Sodium Chloride 10 ml 10/13/18 01:00 10/22/18 17:52 Normal Saline Flush 0.9% IVP Not Given 0100,0900,1700 BECCA Triamcinolone Acetonide 1 applic 10/18/18 12:00 10/22/18 09:56 Kenalog 0.1% Cream TOP 1 applic BID BECCA Administration Vitamin A/Vitamin D 1 applic 10/14/18 15:17 10/17/18 20:38 Vitamin A & D Ointment TOP 1 applic PRN PRN Administration Skin Care Zinc Sulfate 220 mg 10/18/18 09:00 10/22/18 09:55 PO 220 mg DAILY BECCA Administration Zolpidem Tartrate 5 mg 10/12/18 20:50 10/21/18 23:47 Ambien PO 5 mg QPM PRN Administration Insomnia - Lab Result Fish Bone Diagrams: 10/21/18 05:15 10/22/18 09:25 - Additional Planning My Orders: My Active Orders 10/22/18 Evaluate and Treat OT [OT] Routine 10/22/18 09:15 Echo Transthoracic Complete [ECHO] Routine Subjective - Subjective Patient Reports: Feeling Better, Resting Comfortably Objective Vital Signs: Vital Signs - 24 hr 10/21/18 10/21/18 10/22/18 20:31 23:35 07:57 Temperature 36.4 C L 37.4 C Heart Rate [ Activity] Heart Rate [ 60 74 60 Brachial] Heart Rate [ Supine] Respiratory 16 16 Rate Blood Pressure [Activity] Blood Pressure 132/39 H 133/48 H 148/48 H [Right Brachial artery] Blood Pressure [Supine] O2 Saturation 94 94 10/22/18 10/22/18 10:25 16:00 Temperature 37.1 C Heart Rate [ 68 Activity] Heart Rate [ 62 Brachial] Heart Rate [ 60 Supine] Respiratory 18 Rate Blood Pressure 172/81 H [Activity] Blood Pressure 166/49 H [Right Brachial artery] Blood Pressure 148/48 H [Supine] O2 Saturation 96 Oxygen O2 Source Room air I&O (Last 24 Hrs): Intake and Output Totals x24h 10/20/18 10/21/18 10/22/18 23:59 23:59 23:59 Intake Total 1450 830 730 Output Total 400 1100 300 Balance 1050 -270 430 General: Alert, Oriented x3 HEENT: Mucous membr. moist/pink, Other (No wheezing like yesterday) Neck: Supple Neuro: Non Focal Cardiovascular: No murmurs Respiratory: No respiratory distress Extremities: Other (Shins wrapped, skin now dark pin and dry, not red) - Results Results: Laboratory Results WBC 18.4 x10^3/uL (4.8-10.8) H 10/21/18 05:15 RBC 3.44 10^6/uL (4.20-5.40) L 10/21/18 05:15 Hgb 10.0 g/dL (12.0-16.0) L 10/21/18 05:15 Hct 30.8 % (37.0-47.0) L 10/21/18 05:15 MCV 89.6 fL (81.0-99.0) 10/21/18 05:15 MCH 29.2 pg (27.0-31.0) 10/21/18 05:15 MCHC 32.6 g/dL (32.0-36.0) 10/21/18 05:15 RDW 15.4 % (12.0-15.0) H 10/21/18 05:15 Plt Count 254 10^3/uL (130-450) 10/21/18 05:15 MPV 7.4 fL (7.9-10.8) L 10/21/18 05:15 Neut # (Auto) 16.9 10^3/uL (1.5-6.6) H 10/21/18 05:15 Lymph # (Auto) 0.7 10^3/uL (1.5-3.5) L 10/21/18 05:15 [place] # (Auto) 0.7 10^3/uL (0.0-1.0) 10/21/18 05:15 Eos # (Auto) 0.1 10^3/uL (0.0-0.7) 10/21/18 05:15 Baso # (Auto) 0.1 10^3/uL (0.0-0.1) 10/21/18 05:15 Absolute Nucleated RBC 0.00 x10^3/uL 10/21/18 05:15 Total Counted 100 10/12/18 15:50 Band Neuts % (Manual) 2 % (0-10) 10/12/18 15:50 Abnorm Lymph % (Manual) 0 % 10/12/18 15:50 Nucleated RBC % 0.0 /100WBC 10/21/18 05:15 Neutrophils # (Manual) 25.0 10^3/uL (1.5-6.6) H 10/12/18 15:50 Lymphocytes # (Manual) 0.5 10^3/uL (1.5-3.5) L 10/12/18 15:50 Monocytes # (Manual) 0.5 10^3/uL (0.0-1.0) 10/12/18 15:50 Eosinophils # (Manual) 0.3 10^3/uL (0-0.7) 10/12/18 15:50 Basophils # (Manual) 0.0 10^3/uL (0-0.1) 10/12/18 15:50 Differential Comment MANUAL DIFFERENTIAL 10/12/18 15:50 Manual Slide Review Indicated 10/12/18 15:50 RBC Morph Micro Appear 1+ ANISOCYTOSIS (NORMAL) 1+ HYPOCHROMASIA (NORMAL) 1+ OVALOCYTES (NORMAL) 1+ BELEN CELLS (NORMAL) 10/12/18 15:50 RBC Morph Micro Appear 1+ ANISOCYTOSIS (NORMAL) 1+ HYPOCHROMASIA (NORMAL) 1+ OVALOCYTES (NORMAL) 1+ BELEN CELLS (NORMAL) 10/12/18 15:50 RBC Morph Micro Appear 1+ ANISOCYTOSIS (NORMAL) 1+ HYPOCHROMASIA (NORMAL) 1+ OVALOCYTES (NORMAL) 1+ BELEN CELLS (NORMAL) 10/12/18 15:50 RBC Morph Micro Appear 1+ ANISOCYTOSIS (NORMAL) 1+ HYPOCHROMASIA (NORMAL) 1+ OVALOCYTES (NORMAL) 1+ BELEN CELLS (NORMAL) 10/12/18 15:50 ESR 20 mm/Hr (0-30) 10/19/18 06:00 PT 15.0 secs (9.9-12.6) H 10/20/18 05:36 INR 1.3 (0.8-1.2) H 10/20/18 05:36 Sodium 139 mmol/L (135-145) 10/22/18 09:25 Potassium 4.6 mmol/L (3.5-5.0) 10/22/18 09:25 Chloride 107 mmol/L (101-111) 10/22/18 09:25 Carbon Dioxide 23 mmol/L (21-32) 10/22/18 09:25 Anion Gap 9.0 (6-13) 10/22/18 09:25 BUN 35 mg/dL (6-20) H 10/22/18 09:25 Creatinine 1.3 mg/dL (0.4-1.0) H 10/22/18 09:25 Estimated GFR (MDRD) 39 (>89) L 10/22/18 09:25 Glucose 134 mg/dL (70-100) H 10/22/18 09:25 Lactic Acid 1.2 mmol/L (0.5-2.2) 10/12/18 18:52 Calcium 7.8 mg/dL (8.5-10.3) L 10/22/18 09:25 Phosphorus 4.2 mg/dL (2.5-4.6) 10/15/18 05:55 Magnesium 1.7 mg/dL (1.7-2.8) 10/15/18 05:55 Total Bilirubin 0.5 mg/dL (0.2-1.0) 10/12/18 15:50 AST 19 IU/L (10-42) 10/12/18 15:50 ALT 12 IU/L (10-60) 10/12/18 15:50 Alkaline Phosphatase 41 IU/L (42-121) L 10/12/18 15:50 C-Reactive Protein 8.4 mg/dL (0-1.0) H 10/12/18 15:50 B-Natriuretic Peptide 774 pg/mL (5-100) H 10/22/18 09:25 Total Protein 6.3 g/dL (6.7-8.2) L 10/12/18 15:50 Albumin 3.3 g/dL (3.2-5.5) 10/12/18 15:50 Globulin 3.0 g/dL (2.1-4.2) 10/12/18 15:50 Albumin/Globulin Ratio 1.1 (1.0-2.2) 10/12/18 15:50 Lipase 28 U/L (22-51) 10/12/18 15:50 Urine Color YELLOW 10/18/18 22:10 Urine Clarity CLEAR (CLEAR) 10/18/18 22:10 Urine pH 5.5 PH (5.0-7.5) 10/18/18 22:10 Ur Specific [place] >=1.030 (1.002-1.030) H 10/18/18 22:10 Urine Protein NEGATIVE mg/dL (NEGATIVE) 10/18/18 22:10 Urine Glucose (UA) NEGATIVE mg/dL (NEGATIVE) 10/18/18 22:10 Urine Ketones NEGATIVE mg/dL (NEGATIVE) 10/18/18 22:10 Urine Occult Blood NEGATIVE (NEGATIVE) 10/18/18 22:10 Urine Nitrite NEGATIVE (NEGATIVE) 10/18/18 22:10 Urine Bilirubin NEGATIVE (NEGATIVE) 10/18/18 22:10 Urine Urobilinogen 0.2 (NORMAL) E.U./dL (NORMAL) 10/18/18 22:10 Ur Leukocyte Esterase NEGATIVE (NEGATIVE) 10/18/18 22:10 Urine RBC 0-5 /HPF (0-5) 10/12/18 18:04 Urine WBC 0-3 /HPF (0-5) 10/12/18 18:04 Ur Squamous Epith Cells MANY Squamous (<= Few) H 10/12/18 18:04 Urine Bacteria Rare /HPF (None Seen) 10/12/18 18:04 Ur Microscopic Review NOT INDICATED 10/18/18 22:10 Urine Culture Comments NOT INDICATED 10/18/18 22:10 Last Dose Date 10/15/18 10/16/18 20:33 Last Dose Time 2206 10/16/18 20:33 Vancomycin Trough 16.2 ug/mL (10.0-20.0) 10/16/18 20:33 Sepsis Event Note (H) - Evaluation Current Stage of Sepsis: Ruled out Possible source of Sepsis: positive: Skin/soft tissue - Sepsis Criteria Sepsis Criteria: WBC count greater than 10% bands
[2018-10-22] MEDS: ONDANSETRON ODT 4 MG TABLET TL PRN (18:51)
--- NOTE | 2018-10-22 18:57 | Discharge Plan ---
"Discharge Plan for SNF / DARIO - Discharge Plan And Transition Orders Disposition: 03 SNF DC/Xfer Condition: Stable Allergies and Adverse Reactions: Allergies Allergy/AdvReac Type Severity Reaction Status Date / Time aspirin Allergy Unknown Verified 10/12/18 14:46 celecoxib Allergy Unknown Verified 10/12/18 14:46 Iodinated Contrast- Oral and Allergy Anaphylaxis Verified 10/12/18 14:46 IV Dye morphine Allergy Unknown Verified 10/12/18 14:46 Penicillins Allergy Rash Verified 10/12/18 14:46 shellfish derived Allergy Unknown Verified 10/12/18 14:46 Sulfa (Sulfonamide Allergy Rash Verified 10/12/18 14:46 Antibiotics) - SNF / D[facility] Transition Orders Admit to (Facility): [facility] Discharge Diagnosis: 1) Bilateral leg cellulitis, finishing oral Clindamycin 2) Diffuse papular, red rash of body, etiology unclear, improving 3) Chronic leg edema 4) Pulmonary HTN, severe 5) Acute on chronic kidney failure 6) Chronic diastolic LV heart failure 7) Hx of Afib, in NSR or atrial paced rhythm on Tikosyn, and dual chamber pacemaker present 8) HTN 9) Depression 10) Insomnia 11) Obesity, BMI 40 12) Code Status: DNR Medicare Certification Statement: I certify that Post Hospital alf care is medically necessary on a continuing basis for any of the conditions for which she/he is receiving care during hospitalization. Notify PCP of admission and forward orders to primary provider for signature. Weight on admission and: Weekly Call PCP immediately if weight increases by: 5 kg Other Notification Orders: Call PCP immediately if patient develops dyspnea, chest pain/tightness or edema. House Bowel Program: Yes Additional Bowel Program Orders: If no BM after 2 days, nurse may give M.O.M. 30ml PO PRN and/or ducolax Supp 1 CT and/or ALEXA 250mg P.O., and/or senna 1-2 tabs PO. On day 3 nurse may give repeat above order until residents constipation is resolved. Annual Influenza Vaccine (between Mar 01 and September 28): Yes Two-step PPD per [facility] [phone] or approved exception documents: Yes Treatments & Other Orders: Daily PT and OT. Dressing changes of shins every 48 hours. Keep legs elevated when OOB in chair Oxygen Orders: None Medication Orders: PLEASE REFER TO THE DISCHARGE MEDICATION LIST. Insulin Orders?: No - Medications New Prescriptions: diphenhydrAMINE [Benadryl] 50 mg PO Q4HR PRN #60 capsule PRN Reason: Itching hydrOXYzine PAMOATE [Vistaril] 50 mg PO Q4HR PRN #60 capsule PRN Reason: Itching Clindamycin [Cleocin] 150 mg PO Q6HR #20 capsule Cetirizine [ZyrTEC] 5 mg PO DAILY #15 tablet Furosemide [Lasix] 20 mg PO DAILY #30 tablet Multivitamin W/Minerals [Theragran M] 1 tab PO DAILYWM #30 tablet predniSONE [Deltasone] 20 mg PO DAILY #10 tablet Triamcinolone 0.1% Cream [Kenalog 0.1% Cream] 1 applic TOP BID #2 tube Zolpidem [Ambien] 2.5 mg PO QPM PRN #15 tablet PRN Reason: Insomnia - Diet Type: No added salt Texture: Regular Liquids: Thin May have monthly special meal: Yes - Therapies | Activity Therapy: Evaluation | Treat if indicated: PT, OT Rehabilitation Potential: Maximize functional status Activity: Activity as Tolerated Weight Bearing: Full Weight Assistance Devices: Walker Additional Instructions: You were admitted for treatment of leg cellulitis and the body rash. You are being discharged for Rehab and strengthening, with several more days of antibiotics to finish, and steroid pills, in a slowly tapering down schedule, plus topical creams, for the rash. Some of your pre-hospital medications were changed, follow the new list of medications. See your Automotive Engineering Technician and PCP after discharge from Rehab. Follow Up: Your PCP, Dr Pereira and also your established Automotive Engineering Technician, Dr Cedric Lawson"
[2018-10-22] MEDS: ZOLPIDEM 5 MG TABLET PO PRN (22:34)
[2018-10-23] MEDS: SODIUM CHLORIDE FLUSH 0.9% 10 ML SYRINGE IVP SCH ×2 (00:14→08:22)
[2018-10-23] MEDS: CLINDAMYCIN 150 MG CAPSULE PO SCH ×3 (00:14→14:03)
[2018-10-23] MEDS: POLYETHYLENE GLYCOL 3350 17 GM PACKET PO SCH (07:18)
[2018-10-23 08:17] VITALS: BP 171/52
[2018-10-23] MEDS: CITALOPRAM 10 MG TABLET PO SCH (08:21)
[2018-10-23] MEDS: ZINC SULFATE 220 MG CAPSULE PO SCH (08:21)
[2018-10-23] MEDS: CETIRIZINE 10 MG TABLET PO SCH (08:21)
[2018-10-23] MEDS: METOPROLOL SUCCINATE 25 MG TABLET PO SCH (08:21)
[2018-10-23] MEDS: TRIAMCINOLONE 0.1% CREAM 15 GM TUBE TOP SCH (08:22)
[2018-10-23] MEDS: diphenhydrAMINE 25 MG CAPSULE PO PRN (08:22)
[2018-10-23] MEDS: FUROSEMIDE 20 MG TABLET PO SCH (08:22)
[2018-10-23] MEDS: MULTIVITAMIN W/MINERALS TABLET PO SCH (08:22)
[2018-10-23] MEDS: DOFETILIDE 250 MCG PO SCH (08:22)
--- NOTE | 2018-10-25 19:13 | DISCHARGE SUMMARY ---
"Discharge Summary Admit Date: 10/12/18 Discharge Date: 10/23/18 Discharging Provider: Dr Brianne Cohen Primary Care Provider: Dr Mehul Pereira Condition at Discharge: Stable Discharge Disposition: 03 SNF DC/Xfer Discharge Facility Name: [facility] - DIAGNOSES Admission Diagnoses: 1) Sepsis 2) Leg cellulitis, bilateral 3) Diffuse red, papular, eczematous body rash 4) Chronic atrial fibrillation 5) Supratherapeutic INR 6) Chronic diastolic (congestive) heart failure 7) Hx of essential hypertension 8) Depression 9) Insomnia Discharge Diagnoses with Status of Each Condition: 1) Bilateral leg cellulitis, finishing oral Clindamycin 2) Diffuse papular, red rash of body, etiology unclear, improving 3) Chronic leg edema, stable 4) Pulmonary HTN, severe, stable symptoms 5) Acute on chronic kidney failure, stable but elevated creat 6) Chronic diastolic LV heart failure, stable symptoms 7) Hx of Afib, but currently in NSR or atrial paced rhythm on Tikosyn, and dual chamber pacemaker present 8) HTN, controlled 9) Depression, on meds 10) Insomnia, improved on meds 11) Obesity, BMI 40 - HPI History of Present Illness: Patient is an 88 y/o female who presented to the the ED with worsening redness, swelling and blistering of her lower extremities. There was also skin peeling all over her body. Onset of problems with her skin started about 12 days ago. She has gone to her chairman of the board for a hair cut when her hairdresser noted a red rash all over her body. It was concerning for an allergic reaction. However the patient denied using any new detergent, body wash, lotion or lotion. She also denied eating anything out of the ordinary. She went to a dermatology clinic where she was prescribed prednisone and given a prescription of Doxycycline. She had completed 3 of 14 days. She had also presented to the ED and was given a steroid shot in the leg. She was initially itching when her symptoms started and had been taking benadryl. She decided to come in because overnight the redness in her legs got worse and appear beet red currently. She also has significant and extensive blistering of the lower extremity and some have ruptured. and are weeping. She denies any fever but reports chills. She denies chest pain, SOB, abdominal pain, nausea or vomiting. 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 - CONSULTS | PROCEDURES Consultations: Several calls to her Derm, & Med Con with Derm and ID. Procedures: Punch Biopsies of skin done 10/20/[address] Lulu Wihte. - HOSPITAL COURSE Hospital Course: She was admitted with bilateral leg pain, redness, swelling, with oozing fluid from leg blisters and was put on IV antibiotics, transitioned to oral clindamycin and discharged to continue several more days of this. The wound cultures did not grow any bacteria. She was seen in Consult by the [facility] clinic Wound nurse. Treatment of the wound was to do the following: Cleanse with normal saline, apply a No-Sting skin prep to periwound skin, apply silver Hydrofiber to the open wound with a 2-layer compression dressing, to be changed every 1 week by the rehab facility. She became deconditioned, because of many days of bedrest. Physical therapy was only started when her legs were not painful. She qualified for muscle strengthening with Physical Therapy and Occupational Therapy rehab. We were looking for a facility that had wound care capabilities and she was accepted in a [facility] to be transferred to [facility] later however this was too far for her son. A SNF closer to [place], [place] was therefore located and [facility] Her diffuse, papular, red, pruritic rash worsened several times and there were several calls made to [facility] for a medical consult and to her conventional mortgage underwriter, Dr. Cedric Lawson. She was put on oral steroids and also topical Triamcinolone cream which eventually improved her symptoms and the final 2 days of hospitalization. On 10/20/2018, she had skin punch biopsy from 2 spots and this showed: Mild spongiotic dermatitis, eczematous type, no viral changes, dysplasia, granulomata or fungal organisms. Dr. Lawson was informed of these results, and he wants to see her immediately after she is discharged from the [facility] rehab facility. He advised a slow taper of oral Prednisone, to be done over 6 to 8 weeks. She also required p.r.n. oral Benadryl, Vistaril and Zyrtec to manage the pruritus. She was on her Lasix diuretic for chronic leg edema. She had an Echo to evaluate cardiac function and this showed preserved LV ejection fraction, diastolic dysfunction was present and PA pressure was elevated at 72mmHg, con sistent with severe pulmonary hypertension. This was increased from 47 mmHg from just July 2018. The other findings were mild mitral regurgitation, mild tricuspid regurgitation and mild aortic regurgitation. Her creatinine ran between 1.0 and 1.4.. The electronic device monitor showed sinus rhythm or dual-chamber pacing on demand, there was no A. fib seen while she was here. The blood pressure was controlled with adjustment of various medications. She was on her home anti-depression therapy and insomnia therapy. - ALLERGIES Allergies/Adverse Reactions: Allergies Allergy/AdvReac Type Severity Reaction Status Date / Time aspirin Allergy Unknown Verified 10/12/18 14:46 celecoxib Allergy Unknown Verified 10/12/18 14:46 Iodinated Contrast- Oral and Allergy Anaphylaxis Verified 10/12/18 14:46 IV Dye morphine Allergy Unknown Verified 10/12/18 14:46 Penicillins Allergy Rash Verified 10/12/18 14:46 shellfish derived Allergy Unknown Verified 10/12/18 14:46 Sulfa (Sulfonamide Allergy Rash Verified 10/12/18 14:46 Antibiotics) - MEDICATIONS Home Medications: Ambulatory Orders Medication Instructions Recorded Confirmed RX: Acetaminophen 1 tab PO Q6HR 06/15/18 10/13/18 RX: Ketoconazole 1 applic TOP BID PRN 06/15/18 10/13/18 RX: Albuterol 2.5 mg INH Q4H PRN 06/18/18 10/13/18 RX: Albuterol Sulf [Ventolin Hfa 2 puffs INH Q4H PRN 06/18/18 10/13/18 Inhaler] RX: Dofetilide 250 mcg PO BID 10/12/18 10/13/18 RX: Citalopram Hydrobromide 20 mg PO DAILY 10/13/18 10/13/18 [Citalopram HBr] RX: Doxazosin Mesylate 2 mg PO QPM 10/13/18 10/13/18 RX: Metoprolol Succinate 25 mg PO BID 10/13/18 10/13/18 RX: Warfarin Sodium 1.25 mg PO MOWEFR@0900 10/13/18 10/13/18 RX: Warfarin Sodium 2.5 mg PO SUTUTHSA@0900 10/13/18 10/13/18 RX: Cetirizine [ZyrTEC] 5 mg PO DAILY #15 tablet 10/23/18 RX: Clindamycin [Cleocin] 150 mg PO Q6HR #20 capsule 10/23/18 RX: Furosemide [Lasix] 20 mg PO DAILY #30 tablet 10/23/18 RX: Multivitamin W/Minerals 1 tab PO DAILYWM #30 tablet 10/23/18 [Theragran M] RX: Triamcinolone 0.1% Cream 1 applic TOP BID #2 tube 10/23/18 [Kenalog 0.1% Cream] RX: Zolpidem [Ambien] 2.5 mg PO QPM PRN #15 tablet 10/23/18 RX: diphenhydrAMINE [Benadryl] 50 mg PO Q4HR PRN #60 capsule 10/23/18 RX: hydrOXYzine PAMOATE [Vistaril] 50 mg PO Q4HR PRN #60 capsule 10/23/18 RX: predniSONE [Deltasone] 20 mg PO DAILY #10 tablet 10/23/18 - PHYSICAL EXAM AT DISCHARGE General Appearance: positive: No acute distress Eyes Bilateral: positive: Normal inspection, PERRL ENT: positive: No signs of dehydration Neck: positive: Other (Supple) Respiratory: positive: No respiratory distress, Breath sounds nml Cardiovascular: positive: No murmur, Other (Distant heart sounds) Abdomen: positive: Non-tender, Other (Obese with a pannus) Skin: positive: Skin rash (Scaly eczema in multiple locations, no redness) Extremities: positive: Other (2+ edema, shins wrapped.) Neurologic/Psychiatric: positive: Oriented x3, Other (normal) - LABS Result Diagrams: 10/21/18 05:15 10/22/18 09:25 - DIAGNOSTIC IMAGING Diagnostic Imaging Results: Final report reviewed - SEPSIS Current Stage of Sepsis: Ruled out Possible source of Sepsis: Skin/soft tissue Sepsis Criteria: WBC count greater than 10% bands, WBC count greater than 12,000 or less than 4000 - FOLLOW UP Follow Up: F/U with her PCP and with her Auto Tune Up Mechanic, as soon as she is [facility] - TIME SPENT Time Spent in Discharge (Minutes): 60"
== END 2018-10-23 15:18 | DRG 603 ==
LOC: ED 14:34 → MS2 20:50
PROVIDERS: ADMIT Internal Medicine; ATTEND Internal Medicine
PROC: 0HBKXZX Excision of Right Lower Leg Skin, External Approach, Diagnostic (ICD-10-PCS; principal; 2018-10-20)
DX: L03.116 Cellulitis of left lower limb (principal); I13.0 Hypertensive heart and chronic kidney disease with heart failure and stage 1 through stage 4 chronic kidney disease, or unspecified chronic kidney disease; I50.32 Chronic diastolic (congestive) heart failure; N17.9 Acute kidney failure, unspecified; Z68.41 Body mass index [BMI] 40.0-44.9, adult; L03.115 Cellulitis of right lower limb; N18.9 Chronic kidney disease, unspecified; L30.8 Other specified dermatitis; R21 Rash and other nonspecific skin eruption; R60.0 Localized edema; I27.20 Pulmonary hypertension, unspecified; I08.3 Combined rheumatic disorders of mitral, aortic and tricuspid valves; E86.9 Volume depletion, unspecified; F32.9 Major depressive disorder, single episode, unspecified; G47.00 Insomnia, unspecified; E66.9 Obesity, unspecified; I48.2 Chronic atrial fibrillation; J44.9 Chronic obstructive pulmonary disease, unspecified; Z66 Do not resuscitate; Z95.0 Presence of cardiac pacemaker; Z79.01 Long term (current) use of anticoagulants; Z79.51 Long term (current) use of inhaled steroids; Z79.899 Other long term (current) drug therapy
CPT/HCPCS: 36415; 71045; 80048; 80053; 80202; 81001; 81003; 83605; 83690; 83735; 83880; 84100; 85025; 85610; 85651; 86140; 87040; 93306; 94640; 97116; 97161; 97166; 97530; 99283; A9270; J1200; J3370; J7120; Q0162; 87086

== ENCOUNTER 2019-01-21 13:47 | Outpatient (CLI) | payer MEDICARE, OTHER ==
[2019-01-21 18:50] LABS: BASOPHILS # (AUTO) 0.1 10^3/uL (0.0-0.1); BASOPHILS % (AUTO) 1.1 %; EOSINOPHILS # (AUTO) 0.2 10^3/uL (0.0-0.7); EOSINOPHILS % (AUTO) 3.2 %; HGB - HEMOGLOBIN 10.8 g/dL (12.0-16.0); LYMPHOCYTES # (AUTO) 1.2 10^3/uL (1.5-3.5); LYMPHOCYTES % (AUTO) 20.7 %; MEAN CORPUSCULAR HEMOGLOBIN 28.6 pg (27.0-31.0); MEAN CORPUSCULAR VOLUME 95.5 fL (81.0-99.0); MEAN PLATELET VOLUME 10.6 fL (7.9-10.8); MONOCYTES # (AUTO) 0.3 10^3/uL (0.0-1.0); NEUTROPHILS # (AUTO) 3.9 10^3/uL (1.5-6.6); NEUTROPHILS % (AUTO) 68.5 %; PLT - PLATELET COUNT 215 10^3/uL (130-450); RED BLOOD COUNT 3.77 10^6/uL (4.20-5.40); RED CELL DISTRIBUTION WIDTH 15.3 % (12.0-15.0); WHITE BLOOD COUNT 5.7 x10^3/uL (4.8-10.8)
[2019-01-21 19:50] LABS: BILIRUBIN,TOTAL 0.7 mg/dL (0.2-1.0); CALCIUM 8.5 mg/dL (8.5-10.3); CREATININE 1.6 mg/dL (0.4-1.0)
[2019-01-21 19:51] LABS: ALBUMIN 3.3 g/dL (3.2-5.5); ALBUMIN/GLOBULIN RATIO 1.3 (1.0-2.2); TOTAL PROTEIN 5.8 g/dL (6.7-8.2)
[2019-01-21 21:31] LABS: FREE T4 (FREE THYROXINE) 1.38 ng/dL (0.58-1.64)
== END 2019-01-21 23:59 | disposition home or self-care (01) ==
LOC: LAB.WCP 13:47
PROVIDERS: ATTEND Family Medicine
DX: I12.9 Hypertensive chronic kidney disease with stage 1 through stage 4 chronic kidney disease, or unspecified chronic kidney disease (principal); N18.3 Chronic kidney disease, stage 3 (moderate); R60.9 Edema, unspecified; R06.00 Dyspnea, unspecified
CPT/HCPCS: 36415; 80053; 83880; 84439; 84443; 85025

== ENCOUNTER 2019-01-28 08:00 | Outpatient (CLI) | payer MEDICARE, OTHER | END 2019-01-28 23:59 | disposition home or self-care (01) | LOC: LAB.WCP 08:00 | PROVIDERS: ATTEND Family Medicine | DX: R09.02 Hypoxemia (principal); R10.9 Unspecified abdominal pain; I50.32 Chronic diastolic (congestive) heart failure; J44.9 Chronic obstructive pulmonary disease, unspecified; I48.0 Paroxysmal atrial fibrillation ==

== ENCOUNTER 2019-01-29 13:40 | Outpatient (CLI) | payer MEDICARE, OTHER ==
--- NOTE | 2019-01-31 03:52 | CT Report ---
Reason: ABDOMINAL PAIN Procedure Date: 01/29/2019 Accession Number: [id number] / [id number] Procedure: CT - Abdomen/Pelvis WO CPT Code: FULL RESULT: EXAM: CT ABDOMEN AND PELVIS (CT KUB) EXAM DATE: 01/29/2019 02:14 PM. CLINICAL HISTORY: ABDOMINAL PAIN. COMPARISONS: CT ABDOMEN / PELVIS WITHOUT CONTRAST 12/08/2018 3:[address] ABDOMEN TECHNIQUE: Routine axial helical CT imaging was performed through the abdomen and pelvis without IV contrast. Reconstructions: Coronal and sagittal. In accordance with CT protocol optimization, one or more of the following dose reduction techniques were utilized for this exam: automated exposure control, adjustment of mA and/or KV based on patient size, or use of iterative reconstructive technique. FINDINGS: Lung Bases: There is a moderate right-sided pleural effusion progressive compared to the prior study. There is compressive atelectasis of the right lower lung. There is a new small left pleural effusion with an area of atelectasis at the left lung base. The heart is enlarged and there is a small pericardial effusion. Right Kidney/Ureter: No stones, hydronephrosis, or hydroureter. No perinephric fat stranding. There is a cyst along the lower pole of the right kidney. This measures 20 mm in diameter. Left Kidney/Ureter: No stones, hydronephrosis, or hydroureter. No perinephric fat stranding. Other Solid Organs: The liver is grossly unremarkable. There is a multi lobular cyst in the left lobe measuring up to 37 mm in diameter. There is also another cyst in the medial aspect of the left lobe measuring 25 mm. Gallbladder/Bile Ducts: Unremarkable. Peritoneal Cavity: No free fluid, free air or lor adenopathy. Bowel is grossly unremarkable. There is no bowel obstruction. There are no inflammatory changes of the small bowel nor the colon. Pelvic Organs: No bladder stones or wall thickening. Noncontrast images of the visualized pelvic organs are unremarkable. Vasculature: There is a Inez filter in the inferior vena cava. Other: Total right hip replacement noted. Degenerative changes of the spine. IMPRESSION: 1. Enlarging right-sided pleural effusion with contiguous zone of atelectasis. New left-sided pleural effusion with contiguous atelectasis. 2. Enlarged heart. Small pericardial fluid. 3. Hepatic cysts. 4. No definite findings to explain clinical symptoms. RADIA
== END 2019-01-29 13:41 | disposition home or self-care (01) ==
LOC: DI 13:40
PROVIDERS: ATTEND Family Medicine
DX: R10.9 Unspecified abdominal pain (principal); J90 Pleural effusion, not elsewhere classified; J98.11 Atelectasis; I51.7 Cardiomegaly; K76.89 Other specified diseases of liver
CPT/HCPCS: 74176

== ENCOUNTER 2019-02-01 09:12 | Inpatient (IN) | payer MEDICARE, OTHER ==
[2019-02-01] MEDS ORDERED: IPRATROPIUM/ALBUTEROL 3 ML NEB INH STA (09:25)
--- NOTE | 2019-02-01 09:30 | ED Physician Documentation ---
History of Present Illness - Stated complaint Stated Complaint: SOA/ABD IRRITATION - Chief complaint Chief Complaint: Resp - Additonal information Additional information: This is an 88-year-old female with Heart failure, atrial fibrillation, COPD, who was brought in by her son for increasing shortness of breath. Patient has COPD which is severe, and she also has some degree of shortness of breath. However over the recent week she has had increasing dyspnea on exertion. When her oxygen levels have been checked when she is walking, she is gone as low as 83%. She has chronically swollen legs, and is unclear if these are more swollen than usual. Patient states that her breathing feels quite tight, she took a DuoNeb treatment at home and this helped somewhat. She denies chest pain, vomiting. She also knows she is has an redness in the skin folds of her left abdomen. These feel somewhat irritated to her, but it optically painful or itchy. No purulent drainage. No fever. Review of Systems Constitutional: denies: Fever Nose: denies: Congestion Cardiac: denies: Chest pain / pressure Respiratory: reports: Dyspnea GI: denies: Vomiting : denies: Dysuria Neurologic: reports: Generalized weakness Immunocompromised: denies: Immunocompromised PD PAST MEDICAL HISTORY - Past Medical History Cardiovascular: Congestive heart failure, Hypertension, Atrial fibrillation, Other Respiratory: COPD Endocrine/Autoimmune: None GI: Diverticulitis Psych: Depression - Past Surgical History Past Surgical History: Yes General: Cholecystectomy, Bowel surgery Ortho: Spine surgery, Other /RADIO ASSEMBLER: Hysterectomy Cardiovascular: Pacemaker - Present Medications Home Medications: Ambulatory Orders Medication Instructions Recorded Confirmed RX: Citalopram Hydrobromide 10 mg PO DAILY 10/13/18 02/01/19 [Citalopram HBr] RX: Metoprolol Succinate 50 mg PO BID 10/13/18 02/01/19 RX: Warfarin Sodium 1.25 mg PO MOWEFR@209910/13/18 02/01/19 RX: Warfarin Sodium 2.5 mg PO SUTUTHSA@209910/13/18 02/01/19 Amiodarone [Pacerone] 200 mg PO DAILY 02/01/19 02/01/19 Ammonium Lactate [Lac-Hydrin Five] 1 applic TOP BID 02/01/19 02/01/19 LORazepam [Ativan] 0.5 mg PO QPM 02/01/19 02/01/19 Pantoprazole [Protonix] 40 mg PO QDAC 02/01/19 02/01/19 RX: Furosemide [Lasix] 40 mg PO DAILY 02/01/19 02/01/19 RX: Ipratropium [Atrovent] 0.2 mg INH TID 02/01/19 02/01/19 RX: Loratadine [Claritin] 10 mg PO DAILY 02/01/19 02/01/19 RX: Potassium Chloride 10 meq PO DAILY 02/01/19 02/01/19 RX: traZODone [Desyrel] 50 mg PO QPM 02/01/19 02/01/19 - Allergies Allergies/Adverse Reactions: Allergies Allergy/AdvReac Type Severity Reaction Status Date / Time aspirin Allergy Unknown Verified 02/01/19 09:52 celecoxib Allergy Unknown Verified 02/01/19 09:52 Iodinated Contrast- Oral and Allergy Anaphylaxis Verified 02/01/19 09:52 IV Dye morphine Allergy Unknown Verified 02/01/19 09:52 Penicillins Allergy Rash Verified 02/01/19 09:52 shellfish derived Allergy Unknown Verified 02/01/19 09:52 Sulfa (Sulfonamide Allergy Rash Verified 02/01/19 09:52 Antibiotics) albuterol AdvReac Anxiety Verified 02/01/19 09:52 - Social History Does the pt smoke?: No Smoking Status: Former smoker Does the pt drink ETOH?: No Does the pt have substance abuse?: No - Immunizations Immunizations are current?: Yes - POLST Patient has POLST: No POLST Status: DNR PD ED PE NORMAL - Vitals Vital signs reviewed: Yes - General General: Alert and oriented X 3, Other (Increased work of breathing) - HEENT HEENT: PERRL - Cardiac Cardiac: RRR - Respiratory Respiratory: Other (Poor expiratory air movement. Bibasilar crackles.) - Abdomen Abdomen: Soft, Non tender, Other (Rotund) - Derm Derm: Warm and dry - Extremities Extremities: No deformity - Neuro Neuro: Alert and oriented X 3, Normal speech - Psych Psych: Normal mood, Normal affect Results - Vitals Vitals: Vital Signs - 24 hr 02/01/19 02/01/19 02/01/19 09:23 09:28 10:07 Temperature 35.7 C L Heart Rate 60 63 62 Respiratory 26 H 22 19 Rate Blood Pressure 155/76 H 163/58 H O2 Saturation 88 L 99 02/01/19 02/01/19 02/01/19 11:39 12:39 13:00 Temperature Heart Rate 60 62 60 Respiratory 18 18 18 Rate Blood Pressure 177/76 H 160/108 H 149/69 H O2 Saturation 98 97 96 02/01/19 13:30 Temperature Heart Rate 62 Respiratory 18 Rate Blood Pressure 149/69 H O2 Saturation 97 Oxygen O2 Source Nasal cannula Oxygen Flow Rate 2 - EKG (time done) 9:18 Other comments: Other comments - Labs Labs: Laboratory Tests 02/01/19 02/01/19 02/01/19 09:45 11:00 11:00 WBC RBC Hgb Hct MCV MCH MCHC RDW Plt Count MPV Neut # (Auto) Lymph # (Auto) Dodge # (Auto) Eos # (Auto) Baso # (Auto) Absolute Nucleated RBC Nucleated RBC % PT 35.0 H INR 3.2 H Sodium Potassium Chloride Carbon Dioxide Anion Gap BUN Creatinine Estimated GFR (MDRD) Glucose Calcium Total Bilirubin AST ALT Alkaline Phosphatase Troponin I 0.04 Troponin I High Sens 28.2 H* B-Natriuretic Peptide 675 H Total Protein Albumin Globulin Albumin/Globulin Ratio Lipase 02/01/19 02/01/19 11:00 11:00 WBC 7.7 RBC 3.97 L Hgb 11.4 L Hct 38.0 MCV 95.7 MCH 28.7 MCHC 30.0 L RDW 15.0 Plt Count 207 MPV 10.4 Neut # (Auto) 5.5 Lymph # (Auto) 1.4 L Dodge # (Auto) 0.5 Eos # (Auto) 0.2 Baso # (Auto) 0.1 Absolute Nucleated RBC 0.00 Nucleated RBC % 0.0 PT INR Sodium 145 Potassium 3.8 Chloride 103 Carbon Dioxide 27 Anion Gap 15.0 H BUN 21 H Creatinine 1.4 H Estimated GFR (MDRD) 36 L Glucose 92 Calcium 9.0 Total Bilirubin 0.8 AST 17 ALT < 10 L Alkaline Phosphatase 33 L Troponin I Troponin I High Sens B-Natriuretic Peptide Total Protein 6.2 L Albumin 3.8 Globulin 2.4 Albumin/Globulin Ratio 1.6 Lipase 22 PD MEDICAL DECISION MAKING - ED course Complexity details: considered differential (Heart failure, pulmonary edema, COPD, ACS, pneumonia, left-sided abnormality.) ED course: On initial examination patient is hypoxic to the mid 80s on room air. IV was inserted, labs are drawn. Chest x-ray was obtained which showed increased pulmonary congestion. Patient was given Atrovent treatment for expiratory wheezing, and she did have improvement in her wheezing and oxygen saturation afterwards.EKG showed a ventricularly paced rhythm with no obvious signs of ischemia. INR is 3.2 consistent with her anticoagulant use. Troponin is within normal limits at 0.04. BNP is elevated at 675 consistent with her volume overload status and heart failure. CBC is notable for anemia 11.4, no leukocytosis. CMP shows a mildly elevated creatinine 1.4, which patient states is her baseline. Overall patient appears to have a heart failure exacerbation, she also has some COPD which is contributing to her symptoms but has improved after inhaler treatment. Ambulatory sat 79% after 3 steps, after atrovent. Given her hypoxia she was admitted to the hospital for further evaluation and treatment. She was given 40 mg of Lasix IV for volume overload. Please refer to the admitting services notes for the hospital course. Regarding her abdominal rash, this appears to be some slight maceration and likely yeast infection, I ordered nystatin powder. Departure - Departure Disposition: [facility] DC/Xfer Clinical Impression: Hypoxia, Heart failure Condition: Fair Discharge Date/Time: 02/01/19 15:32
[2019-02-01] MEDS ORDERED: IPRATROPIUM 0.2 MG/ML NEB INH STA (09:54)
[2019-02-01 09:56] LABS: INR 3.2 (0.8-1.2)
--- NOTE | 2019-02-01 10:22 | XRAY Report ---
Reason: Chest Pain Procedure Date: 02/01/2019 Accession Number: [id number] / [id number] Procedure: XR - Chest 1 View X-Ray CPT Code: 39312 FULL RESULT: EXAM: CHEST RADIOGRAPHY EXAM DATE: 02/01/2019 09:52 AM. CLINICAL HISTORY: Chest pain. COMPARISON: ABDOMEN ACUTE 01/22/2019 9:47 AM. TECHNIQUE: 1 view. FINDINGS: Lungs/Pleura: Bilateral small pleural effusions and bibasilar pulmonary opacities are slightly increased since the last exam. The mild bilateral perihilar opacity and perihilar bronchial cuffing have also slightly worsened. No pneumothorax. Mediastinum: Mild cardiomegaly with left subclavian pacemaker in place again noted, no significant interval changes. Other: None. IMPRESSION: Persistent mild cardiomegaly, interval worsening congestive heart failure versus less likely superimposed infiltrate or pneumonia in the bilateral lower lobes. RADIA
[2019-02-01 11:05] LABS: BASOPHILS # (AUTO) 0.1 10^3/uL (0.0-0.1); BASOPHILS % (AUTO) 0.7 %; EOSINOPHILS # (AUTO) 0.2 10^3/uL (0.0-0.7); EOSINOPHILS % (AUTO) 2.9 %; HGB - HEMOGLOBIN 11.4 g/dL (12.0-16.0); LYMPHOCYTES # (AUTO) 1.4 10^3/uL (1.5-3.5); LYMPHOCYTES % (AUTO) 17.6 %; MEAN CORPUSCULAR HEMOGLOBIN 28.7 pg (27.0-31.0); MEAN CORPUSCULAR VOLUME 95.7 fL (81.0-99.0); MEAN PLATELET VOLUME 10.4 fL (7.9-10.8); MONOCYTES # (AUTO) 0.5 10^3/uL (0.0-1.0); MONOCYTES % (AUTO) 6.9 %; NEUTROPHILS # (AUTO) 5.5 10^3/uL (1.5-6.6); NEUTROPHILS % (AUTO) 71.4 %; PLT - PLATELET COUNT 207 10^3/uL (130-450); RED BLOOD COUNT 3.97 10^6/uL (4.20-5.40); WHITE BLOOD COUNT 7.7 x10^3/uL (4.8-10.8)
[2019-02-01 11:26] LABS: ALBUMIN 3.8 g/dL (3.2-5.5); ALBUMIN/GLOBULIN RATIO 1.6 (1.0-2.2); ALKALINE PHOSPHATASE 33 IU/L (42-121); ALT ALANINE AMINOTRANSFERASE < 10 IU/L (10-60); AST ASPARTATE AMINOTRANSFERASE 17 IU/L (10-42); BILIRUBIN,TOTAL 0.8 mg/dL (0.2-1.0); BUN - BLOOD UREA NITROGEN 21 mg/dL (6-20); CARBON DIOXIDE - CO2 27 mmol/L (21-32); CHLORIDE 103 mmol/L (101-111); CREATININE 1.4 mg/dL (0.4-1.0); GFR - MDRD 36 (>89); GLUCOSE 92 mg/dL (70-100); LIPASE 22 U/L (22-51); SODIUM 145 mmol/L (135-145); TOTAL PROTEIN 6.2 g/dL (6.7-8.2); TROPONIN I 0.04 ng/mL (<0.49)
[2019-02-01] MEDS ORDERED: FUROSEMIDE 40 MG/4 ML VIAL IVP STA (13:57)
[2019-02-01] MEDS ORDERED: ONDANSETRON 4 MG/2 ML VIAL IVP PRN (14:05)
[2019-02-01] MEDS ORDERED: TEMAZEPAM 15 MG CAPSULE PO PRN (14:05)
[2019-02-01] MEDS ORDERED: SODIUM CHLORIDE FLUSH 0.9% 10 ML SYRINGE IVP PRN (14:05)
--- NOTE | 2019-02-01 14:07 | HISTORY & PHYSICAL EXAMINATION ---
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 She was was brought in by her son via private car for increasing shortness of breath. Patient has known COPD which is severe, and over the recent week she has had increasing dyspnea on exertion. She has had about 4 months of complications which started during her last hospitalization here at [facility] from 10/12-10/25 for severe, diffuse rash due to a reaction to an antifungal who initially was sent to [facility]. She became short of breath at rehab, so was sent to [facility] on 11/20/2018 with one week of worsening shortness of breath, BLE edema, and weight gain, which was treated for decompensated CHF and COPD exacerbation along with prior influenza viral infection. Her course was complicated by sustained V tach . She was treated by adding amiodarone and transferred to a swing bed at [facility], and during her stay developed a SBO on 12/08/2018, then sent to [facility]. She returned to the swing bed, then discharged home with [facility] services on 01/07/2019. Since arriving back home, her son, Jimi has been staying with her. She last saw her PCP last Saturday (01/28/2019) as a follow up to her abdominal pain, but her primary complaint was shortness of breath. Dr. Pereira did a road test, which qualified her for home oxygen, but has not yet been set up. Her oxygen levels have been checked when she is walking, and she was noted to have saturations as low as 83%. She has chronically swollen legs, but she and her son believe that they are more swollen than usual. Patient states that her breathing feels quite tight, she took a DuoNeb treatment at home and this helped somewhat. She also complains of ongoing belching, heart burn, poor appetite, orthopnea, insomnia, dysuria, and a frontal headache since arriving in the ED today. Labs show an INR of 3.2, H/H of 11.4/38.0, WBC count of 7.7, sodium of 145, potassium of 38., BUN 21, creatinine of 1.4, GFR 36, glucose 92, Alk phos 33, BNP 675, high sensitivity troponin of 28.2, TSH 9.4, free T4 normal at 1.38. A chest x-ray showed worsening pulmonary congestion. She is being admitted to inpatient for further diuresis using IV lasix, telemetry monitoring, and to obtain an updated echocardiogram. 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 : reports: Incontinence, Renal insuffiency, Nocturia, Frequency HEENT: reports: Chronic vision loss, Chronic sinusitis, Chronic hearing loss Psych: reports: Depression, Anxiety Musculoskeletal: reports: Osteoarthritis, Osteoporosis, Fatigue, Chronic back pain Derm: reports: None MRSA Hx?: No - Past Surgical History General: reports: Cholecystectomy, Bowel surgery (colon resection), Colonoscopy Ortho: reports: Spine surgery, Other (knee arthroscopy, left knee steroid injections) /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 Mother: of natural causes, history of CVA/stroke, hypertension. Patient had no siblings Living arrangement: At home Living Situation: With family Social History Notes: The patient is retired from [employer] in [place]. She and her late moved here in 1970. They would travel to [place], [place] during the winter months and stay on the [place] during the [place]. She now lives alone, but her son Jimi has been staying with her since being discharged from her latest rehab on 01/08/2019. Has 3 sons. One lives in [facility], the other in [facility] (but also stays at her house right now) and another in [place]. She becoming less independent of activities of daily living, and has minimal home care givers & home PT since coming home from rehab. She can walk on her own and uses a walker sometimes as well. She no longer drives. She admits to using tobacco from age [age]. She denies the use of alcohol or illicit drugs. She wishes to be a DNR and there is a POLST on file. - Substance History Use: Uses substance without health or social issues: NONE Abuse: Recurrent use of substance despite neg consequences: NONE Dependence: Experiences withdrawal or developed tolerances: NONE - POLST Patient has POLST: Yes POLST Status: DNR Meds/Allgy - Home Medications Home Medications: Ambulatory Orders Medication Instructions Recorded Confirmed Citalopram Hydrobromide 10 mg PO DAILY 10/13/18 02/01/19 [Citalopram HBr] Metoprolol Succinate 50 mg PO BID 10/13/18 02/01/19 Warfarin Sodium 1.25 mg PO [id number]/13/18 02/01/19 Warfarin Sodium 2.5 mg PO SUTUTHSA@2100 10/13/18 02/01/19 Amiodarone [Pacerone] 200 mg PO DAILY 02/01/19 02/01/19 Ammonium Lactate [Lac-Hydrin Five] 1 applic TOP BID 02/01/19 02/01/19 Furosemide [Lasix] 40 mg PO DAILY 02/01/19 02/01/19 Ipratropium [Atrovent] 0.5 mg INH TID 02/01/19 02/02/19 LORazepam [Ativan] 0.5 mg PO QPM 02/01/19 02/01/19 Loratadine [Claritin] 10 mg PO DAILY 02/01/19 02/01/19 Pantoprazole [Protonix] 40 mg PO QDAC 02/01/19 02/01/19 Potassium Chloride 10 meq PO DAILY 02/01/19 02/01/19 traZODone [Desyrel] 50 mg PO QPM 02/01/19 02/01/19 - Allergies Allergies/Adverse Reactions: Allergies Allergy/AdvReac Type Severity Reaction Status Date / Time aspirin Allergy Unknown Verified 02/01/19 09:52 celecoxib Allergy Unknown Verified 02/01/19 09:52 Iodinated Contrast- Oral and Allergy Anaphylaxis Verified 02/01/19 09:52 IV Dye morphine Allergy Unknown Verified 02/01/19 09:52 Penicillins Allergy Rash Verified 02/01/19 09:52 shellfish derived Allergy Unknown Verified 02/01/19 09:52 Sulfa (Sulfonamide Allergy Rash Verified 02/01/19 09:52 Antibiotics) albuterol AdvReac Anxiety Verified 02/01/19 09:52 Review of Systems - Constitutional Constitutional: reports: Fatigue, Weakness, Poor appetite - Eyes Eyes: reports: Vision loss, Corrective lenses - Ears, Nose & Throat Ears, Nose & Throat: reports: Hearing loss, Tinnitus, Postnasal drainage, Sore throat, Hoarseness - Cardiovascular Cariovascular: reports: Lightheadedness, Exertional dyspnea, Decr. exercise tolerance, Orthopnea - Respiratory Respiratory: reports: Cough, Snoring, Orthopnea, SOB at rest, SOB with exertion - Gastrointestinal Gastrointestinal: reports: Abdominal distention, Nausea, Reflux/heartburn, Bloating, Poor appetite, Other (belching) - Genitourinary Genitourinary: reports: Dysuria, Frequency, Urgency, Incontinence, Nocturia - Musculoskeletal Musculoskeletal: reports: Back pain, Stiffness, Limited range of motion, Muscle weakness, Joint pain, Joint swelling - Integumentary Integumentary: reports: Dryness - Neurological Neurological: reports: General weakness, Headache, Dizziness, Memory problems, Pre-existing deficit, Abnormal gait - Psychiatric Psychiatric: reports: Depression, Anxiety - Hematologic/Lymphatic Hematologic/Lymphatic: reports: Bleeding tendencies, Recurrent infections, Other (fraigile skin, difficult IV placement) - All Other Systems All Other Systems: reports: Reviewed and negative Prior Level of Functionality: Worsening mobility due to continuous shortness of breath, uses walker, near falling event a few weeks ago, without injury. Gets home health with care givers. No longer drives. Exam - Vital Signs Reviewed Vital Signs: Yes Vital Signs: Vital Signs x48h Temp Pulse Resp BP Pulse Ox 02/01/19 13:30 62 18 149/69 H 97 02/01/19 13:00 60 18 149/69 H 96 02/01/19 12:39 62 18 160/108 H 97 02/01/19 11:39 60 18 177/76 H 98 02/01/19 10:07 62 19 02/01/19 09:28 63 22 163/58 H 99 02/01/19 09:23 35.7 C L 60 26 H 155/76 H 88 L - Physical Exam General Appearance: positive: Alert, Moderate distress, Anxious Eyes Bilateral: positive: PERRL, No lid inflammation ENT: positive: Pharynx nml, Dry mucous membranes Neck: positive: Thyroid nml, Trachea midline Respiratory: positive: Chest non-tender, Rhonchi Cardiovascular: positive: No gallop, Irregularly irregular, Systolic murmur, Gallop/S3 Peripheral Pulses: positive: 1+ Abdomen: positive: Guarding, Hepatomegaly, Abnml bowel sounds Back: positive: Nml inspection Skin: positive: No rash, Warm, Dry, Cyanosis (fingers discolored), Pallor Extremities: positive: Pedal edema, Joint swelling, 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) Neurologic/Psychiatric: positive: Oriented x3, CN's nml (2-12), Weakness, Sensory loss, Depressed mood/affect Reflexes: Bicep (R): 3+, Bicep (L): 2+ Conclusion/Plan - Problem List (1) Acute on chronic congestive heart failure Conclusion/Plan: - Home medications for this condition include; metoprolol, amiodarone, furosemide and was previously on Tikosyn and Spironolactone, which appear not to be prescribed any longer - Patient admits to more profound orthopnea which became worse in the past 1 year in which she has to stay - Increased swelling in abdomen, and BLE preventing her from ambulating as much - The most troubling symptoms of this exacerbation is her breathlessness and work of breathing which has been progressive - On admission, labs show a BNP of 675, BUN 21, troponin of 0.04, and high sen sitivity troponin of 28.2 Plan: Continue IV lasix, add spironolactone, replace electrolytes as needed, monitor daily weights, urine output, labs if patient allows Qualifiers: Heart failure type: diastolic Qualified Code(s): I50.33 - Acute on chronic diastolic (congestive) heart failure (2) Pulmonary hypertension Conclusion/Plan: - According to last known echocardiogram, the patient had an elevated RVSP at rest of 72 mmHg - Patient denies a history of SHAHANA, but admits to longstanding COPD - Was recently qualified for home oxygen in her primary clinic, but no home oxygen has been set up yet - Presentation to the ED was with shortness of breath, hypoxia requiring oxygen, increased abdominal edema and increased BLE edema Plan: Start spironolactone, support with oxygen (3) Chronic obstructive pulmonary disease with hypoxia Conclusion/Plan: - Patient admits to a smoking history from age [age], also admits to second hand smoke for several years - Longstanding COPD - Uses atrovent nebulizers at home, and on a recent steroid taper Plan: Continue with atrovent nebs scheduled, provide oxygen and respiratory care (4) Acute kidney injury superimposed on chronic kidney disease Conclusion/Plan: - Recent baseline creatinine was ~ 1.1, now up to 1.4 - May have a component of poor renal perfusion which is exacerbated by current decompensated CHF Plan: Continue to give IV lasix, monitor urinary output, daily weights, and labs if allowed, hold other nephrotoxic agents (5) Atrial fibrillation Conclusion/Plan: - Patient has a dual-lead pacemaker on imaging and listed in history - was previously on Tikosyn, now on amiodarone and metoprolol at home - Also on chronic anticoagulation using Warfarin - INR is 3.2 Plan: Continue Warfarin per pharmacy, order daily finger-stick INRs Qualifiers: Atrial fibrillation type: chronic Qualified Code(s): I48.2 - Chronic atrial fibrillation (6) History of CVA (cerebrovascular accident) Conclusion/Plan: - This occurred about 20 years ago and the patient was sent to intensive therapy for her residual left sided weakness, which improved - On exam, weakness is appreciated in LUE and LLE Plan: Fall precautions, PT evaluation (7) Debility Conclusion/Plan: - This has been progressive and likely due to the combination between her COPD and CHF - Several hospital stays/ swing bed facility/SNFs in the past 4 months - Her son, Jmii has been living in her home to help her out - Also has home health with [facility] for extra help Plan: Continue to treat acute exacerbation, PT evaluation prior to discharge (8) DNR (do not resuscitate) Conclusion/Plan: - POLST on file confirms the patient's present wishes of DNR - Not currently a Palliative care or Hospice patient - The patient and her son would like some time to think about this and wish to proceed with treatment of acute illness Plan: Continue to treat acute illness, patient will remain a DNR (9) Urinary incontinence Conclusion/Plan: - This has been a longstanding problem which has caused some perineum skin issues - Likely exacerbated by chronic diuretic use - Now with a left groin skin fold irritation- yeast, so Nystatin ordered by ED provider Plan: Continue to monitor for improvement, purewick to prevent further break down Qualifiers: Urinary Incontinence type: mixed stress and urge incontinence Qualified Code(s): N39.46 - Mixed incontinence (10) Depression Conclusion/Plan: - Several life changing events including frequent hospital admissions, swing bed and rehab stays - [id number] in her 50's recently from breast cancer/brain mets - Progression of chronic illnesses are also taking a toll on her well being - Not yet ready to proceed with Hospice - Is prescribed Citalopram at home, continued here Plan: Continue home medications, monitor mood Qualifiers: Depression Type: major depressive disorder Major depression recurrence: recurrent Major depression episode severity: moderate (11) Hypertension Conclusion/Plan: - Takes lasix, metoprolol, at home - Resumed BB and lasix - Blood pressure 156/85 when arriving to nursing floor Plan: Continue to monitor, telemetry, await echo, and adjust medications as needed Qualifiers: Hypertension type: essential hypertension Qualified Code(s): I10 - Essential (primary) hypertension (12) Insomnia Conclusion/Plan: - Orthopnea within the past year has exacerbated this - Recently was prescribed Trazadone, which has made a big difference Plan: Continue trazadone, reduce nursing interruptions, discontinue telemetry when more stable, change VS to every shift when able Qualifiers: Insomnia type: unspecified Qualified Code(s): G47.00 - Insomnia, unspecified (13) Supratherapeutic INR Conclusion/Plan: - Warfarin indicated for atrial fibrillation - 3.2 on admission - Ordered warfarin per pharmacy for dose adjusting - Will order INR per finger stick for comfort of patient Plan: Continue daily INRs, hold coumadin if INR is greater than 3.0 (14) GERD (gastroesophageal reflux disease) Conclusion/Plan: - Patient presents with continuous belching - Takes a PPI at home - Recent SBO, now resolved Plan: Continue to monitor, treat acute CHF exacerbation to hopefully improve symptoms by reducing abdominal edema (15) Leg edema Conclusion/Plan: - Chronic BLE, skin discoloration indicated several years of this - Obesity Plan: Continue with diuresis, monitor weights, apply PADMA hose when swelling is reduced - Lab Results Lab results reviewed: Yes Fish Bones: 02/01/19 11:00 02/01/19 11:00 - Diagnostic Imaging Results Diagnostic Imaging Results: positive: Final report reviewed Diagnostic Imaging Results Comments: EXAM: CHEST RADIOGRAPHY EXAM DATE: 02/01/2019 09:52 AM IMPRESSION: Persistent mild cardiomegaly, interval worsening congestive heart failure versus less likely superimposed infiltrate or pneumonia in the bilateral lower lobes. Core Measures - Anticipated LOS I expect patient to be DC'd or transferred within 96 hours.: Yes - DVT/VTE - Prophylaxis VTE/DVT Device ordered at admit?: Yes VTE/DVT Prophylaxis med ordered at admit?: No Not Ordered - Medical Reason: Contraindicated - Stroke - Rehab Assessment Rehab services assessment to be ordered?: Yes - AMI - Statin at Admit Aspirin Prescribed on Admit: No Not Ordered - Medical Reason: Contraindicated
[2019-02-01] MEDS ORDERED: POTASSIUM CHLORIDE 20 MEQ TABLET PO ONE (17:04)
[2019-02-01] MEDS: AMIODARONE 200 MG TABLET PO SCH (17:59)
[2019-02-01] MEDS: PANTOPRAZOLE 40 MG TABLET PO SCH (18:00)
[2019-02-01] MEDS: METOPROLOL SUCCINATE 25 MG TABLET PO SCH (18:00)
[2019-02-01] MEDS: FUROSEMIDE 40 MG/4 ML VIAL IVP SCH (18:03)
[2019-02-01] MEDS: SPIRONOLACTONE 25 MG TABLET PO SCH (18:52)
[2019-02-01] MEDS: SODIUM CHLORIDE FLUSH 0.9% 10 ML SYRINGE IVP SCH (18:53)
[2019-02-01] MEDS: WARFARIN 2.5 MG TABLET PO SCH (19:03)
[2019-02-01] MEDS: IPRATROPIUM 0.2 MG/ML NEB INH SCH (21:41)
[2019-02-01] MEDS: NYSTATIN POWDER 15 GM TOP SCH (21:52)
[2019-02-01] MEDS: LORazepam 0.5 MG TABLET PO SCH (21:52)
[2019-02-01] MEDS: traZODone 50 MG TABLET PO SCH (21:52)
[2019-02-01] MEDS: FAMOTIDINE 20 MG TABLET PO SCH (21:52)
[2019-02-02] MEDS: SODIUM CHLORIDE FLUSH 0.9% 10 ML SYRINGE IVP SCH ×3 (00:15→19:58)
[2019-02-02] MEDS: FUROSEMIDE 40 MG/4 ML VIAL IVP SCH (06:10)
[2019-02-02] MEDS: PANTOPRAZOLE 40 MG TABLET PO SCH (06:11)
[2019-02-02] MEDS ORDERED: FUROSEMIDE 40 MG TABLET PO SCH (07:00)
[2019-02-02] MEDS: IPRATROPIUM 0.2 MG/ML NEB INH SCH ×3 (07:30→19:10)
[2019-02-02] MEDS ORDERED: IPRATROPIUM 0.2 MG/ML NEB INH SCH ×2 (08:13→08:27)
[2019-02-02] MEDS ORDERED: ENOXAPARIN 40 MG/0.4 ML SYRINGE SUBQ SCH ×2 (09:00→19:47)
[2019-02-02] MEDS: LORATADINE 10 MG TABLET PO SCH (09:35)
[2019-02-02] MEDS: FAMOTIDINE 20 MG TABLET PO SCH (09:35)
[2019-02-02] MEDS: METOPROLOL SUCCINATE 25 MG TABLET PO SCH ×2 (09:36→17:25)
[2019-02-02] MEDS: SPIRONOLACTONE 25 MG TABLET PO SCH (09:36)
[2019-02-02] MEDS: AMIODARONE 200 MG TABLET PO SCH (09:36)
[2019-02-02] MEDS: CITALOPRAM 10 MG TABLET PO SCH (09:36)
[2019-02-02] MEDS: POLYETHYLENE GLYCOL 3350 17 GM PACKET PO SCH (09:37)
[2019-02-02] MEDS: SENNA 8.6 MG TABLET PO SCH (09:37)
[2019-02-02] MEDS: DOCUSATE SODIUM 250 MG CAPSULE PO SCH (09:37)
[2019-02-02] MEDS: NYSTATIN POWDER 15 GM TOP SCH ×2 (10:08→22:01)
--- NOTE | 2019-02-02 15:25 | PROVIDER PROGRESS NOTE ---
Subjective - Prog Note Date Prog Note Date: 02/02/19 Prog Note Time: 15:25 - Subjective Pt reports feeling: Improved Subjective: Rekha states that she feels much better as compared to admission. Her breathlessness has improved and her belching is less. She has no chest pain, and wishes for us to have no further attempts at IVs or blood draws. The INR per finger sticks are working out well. Current Medications - Current Medications Current Medications: Active Medications: Amiodarone HCl (Pacerone) 200 mg PO DAILY [facility] Last Admin: 02/02/19 09:36 Dose: 200 mg Citalopram Hydrobromide (Celexa) 10 mg PO DAILY [facility] Last Admin: 02/02/19 09:36 Dose: 10 mg Docusate Sodium (Colace 250mg Capsule) 250 - 500 mg PO DAILY [facility] Last Admin: 02/02/19 09:37 Dose: 500 mg Enoxaparin Sodium (Lovenox) 30 mg SUBQ DAILY [facility] Famotidine (Pepcid) 20 mg PO DAILY [facility] Furosemide (Lasix) 40 mg PO BIDDIURETIC [facility] Last Admin: 02/02/19 22:01 Dose: 40 mg Ipratropium [place] (Atrovent) 0.5 mg INH RTTID [facility] Last Admin: 02/02/19 19:10 Dose: 0.5 mg Loratadine (Claritin) 10 mg PO DAILY [facility] Last Admin: 02/02/19 09:35 Dose: 10 mg Lorazepam (Ativan) 0.5 mg PO QPM [facility] Last Admin: 02/02/19 22:00 Dose: 0.5 mg Metoprolol Succinate (Toprol Xl) 50 mg PO BIDWM [facility] Last Admin: 02/02/19 17:25 Dose: 50 mg Nystatin (Nystop) 1 applic TOP BID [facility] Last Admin: 02/02/19 22:01 Dose: 1 applic Pantoprazole Sodium (Protonix) 40 mg PO QDAC [facility] Last Admin: 02/02/19 06:11 Dose: 40 mg Polyethylene Glycol (Miralax) 17 gm PO DAILY [facility] Last Admin: 02/02/19 09:37 Dose: 17 gm Senna (Senokot) 8.6 - 17.2 mg PO DAILY [facility] Last Admin: 02/02/19 09:37 Dose: 17.2 mg Spironolactone (Aldactone) 25 mg PO DAILY [facility] Last Admin: 02/02/19 09:36 Dose: 25 mg Temazepam (Restoril) 15 mg PO QPM PRN PRN Reason: Insomnia Trazodone HCl (Desyrel) 50 mg PO QPM [facility] Last Admin: 02/02/19 22:01 Dose: 50 mg Warfarin Sodium (Coumadin) 1.25 mg PO [id number]@2099 [facility] Last Admin: 02/02/19 19:23 Dose: Not Given Warfarin Sodium (Coumadin) 2.5 mg PO SUTUTHSA@2099 [facility] Last Admin: 02/01/19 19:03 Dose: Not Given Citalopram Hydrobromide [Citalopram HBr] 10 mg PO DAILY 10/13/18 Metoprolol Succinate 50 mg PO BID 10/13/18 Warfarin Sodium 1.25 mg PO [id number]@209910/13/18 Warfarin Sodium 2.5 mg PO SUTUTHSA@209910/13/18 Amiodarone [Pacerone] 200 mg PO DAILY 02/01/19 Ammonium Lactate [Lac-Hydrin Five] 1 applic TOP BID 02/01/19 Furosemide [Lasix] 40 mg PO DAILY 02/01/19 Ipratropium [Atrovent] 0.5 mg INH TID 02/01/19 LORazepam [Ativan] 0.5 mg PO QPM 02/01/19 Loratadine [Claritin] 10 mg PO DAILY 02/01/19 Pantoprazole [Protonix] 40 mg PO QDAC 02/01/19 Potassium Chloride 10 meq PO DAILY 02/01/19 traZODone [Desyrel] 50 mg PO QPM 02/01/19 Objective - Vital Signs/Intake & Output Reviewed Vital Signs: Yes Vital Signs: Vital Signs x48h Temp Pulse Pulse Resp BP Pulse Ox 02/02/19 14:15 59 L 16 02/02/19 11:19 36.8 C 64 18 148/61 H 97 02/02/19 08:05 36.5 C 68 20 151/57 H 98 02/02/19 07:30 57 L 16 Intake & Output: Intake & Output 01/30/19 01/31/19 02/01/19 02/02/19 23:59 23:59 23:59 23:59 Intake Total 240 1690 Output Total 1600 2950 Balance -1360 -1260 - Objective General Appearance: positive: No acute distress, Alert Eyes Bilateral: positive: PERRL ENT: positive: ENT inspection nml, Pharynx nml Neck: positive: Thyroid nml, No JVD Respiratory: positive: Chest non-tender, No respiratory distress, Wheezes Cardiovascular: positive: No gallop, Irregularly irregular, Systolic murmur, Decreased pulse(s) Peripheral Pulses: 1+ Radial (R), 1+ Radial (L) Abdomen: positive: Non-tender, Nml bowel sounds, Hepatomegaly Back: positive: Nml inspection Skin: positive: No rash, Warm, Dry, Pallor Extremities: positive: Non-tender, Pedal edema, Joint swelling Neurologic/Psychiatric: positive: Oriented x3, CN's nml (2-12), Motor nml, Sensation nml, Weakness Reflexes: Bicep (R): 3+, Bicep (L): 3+ - Lab Results Fish Bones: 02/01/19 11:00 02/01/19 11:00 Other Labs: Lab Results x24hrs 02/02/19 Range/Units 08:59 Whole Blood INR 3.2 H (0.8-1.2) ABX Reporting Has patient been on IV antibiotics over the past 48 hours?: No Assessment/Plan - Problem List (1) Acute on chronic congestive heart failure Impression: - The patient has had an improvement with tolerating food, less belching, and appears to have less facial and chest edema - Urine output is steady, light yellow - Home medications for this condition include; metoprolol, amiodarone, furosemide and was previously on Tikosyn and Spironolactone, which appear not to be prescribed any longer - Patient has had more profound orthopnea which became worse in the past 1 year - Increased swelling in abdomen, and BLE preventing her from ambulating as much - The most troubling symptoms of this exacerbation is her breathlessness and work of breathing which has been progressive - On admission, labs show a BNP of 675, BUN 21, troponin of 0.04, and high sensitivity troponin of 28.2 - Patient continues to refuse labs or IV replacement Plan: No further IV lasix, now on PO lasix with BID dosing, continue spironolactone, monitor daily weights, urine output Qualifiers: Heart failure type: diastolic Qualified Code(s): I50.33 - Acute on chronic diastolic (congestive) heart failure (2) Pulmonary hypertension Impression: - According to last known echocardiogram, the patient had an elevated RVSP at rest of 72 mmHg - Patient denies a history of SHAHANA, but admits to longstanding COPD - Was recently qualified for home oxygen in her primary clinic, but no home oxygen has been set up yet - Presentation to the ED was with shortness of breath, hypoxia requiring oxygen, increased abdominal edema and increased BLE edema Plan: Continue spironolactone, support with oxygen, await new echo (3) Chronic obstructive pulmonary disease with hypoxia Impression: - Patient admits to a smoking history from age [age], also admits to second hand smoke for several years - Longstanding COPD - Uses atrovent nebulizers at home, and on a recent steroid taper Plan: Continue with atrovent nebs scheduled, provide oxygen and respiratory care (4) Acute kidney injury superimposed on chronic kidney disease Impression: - Recent baseline creatinine was ~ 1.1, now up to 1.4 - May have a component of poor renal perfusion which is exacerbated by current decompensated CHF - No longer with IV access, so lasix changed to PO with BID dosing, added spironolactone shortly after admission Plan: Continue to give PO lasix, monitor urinary output, daily weights, and labs if allowed, hold other nephrotoxic agents (5) Atrial fibrillation Qualifiers: Atrial fibrillation type: chronic Qualified Code(s): I48.2 - Chronic atrial fibrillation (6) History of CVA (cerebrovascular accident) Impression: - This occurred about 20 years ago and the patient was sent to intensive therapy for her residual left sided weakness, which improved - On exam, weakness is appreciated in LUE and LLE Plan: Fall precautions, PT evaluation (7) Debility Impression: - This has been progressive and likely due to the combination between her COPD and CHF - Several hospital stays/ swing bed facility/SNFs in the past 4 months - Her son, Jimi has been living in her home to help her out - Also has home health with [facility] for extra help Plan: Continue to treat acute exacerbation, PT evaluation prior to discharge (8) DNR (do not resuscitate) Impression: - POLST on file confirms the patient's present wishes of DNR - Not currently a Palliative care or Hospice patient - The patient and her son would like some time to think about this and wish to proceed with treatment of acute illness Plan: Continue to treat acute illness, patient will remain a DNR (9) Urinary incontinence Impression: - This has been a longstanding problem which has caused some perineum skin issues - Likely exacerbated by chronic diuretic use - Now with a left groin skin fold irritation- yeast, so Nystatin ordered by ED provider Plan: Continue to monitor for improvement, purewick to prevent further break down Qualifiers: Urinary Incontinence type: mixed stress and urge incontinence Qualified Code(s): N39.46 - Mixed incontinence (10) Depression Impression: - Several life changing events including frequent hospital admissions, swing bed and rehab stays - [id number] in her 50's recently from breast cancer/brain mets - Progression of chronic illnesses are also taking a toll on her well being - Not yet ready to proceed with Hospice - Is prescribed Citalopram at home, continued here Plan: Continue home medications, monitor mood Qualifiers: Depression Type: major depressive disorder Major depression recurrence: recurrent Major depression episode severity: moderate (11) Hypertension Impression: - Takes lasix, metoprolol, at home - Resumed BB and lasix - Started spironolactone yesterday - Blood pressure 147/61 today Plan: Continue to monitor, await echo, and adjust medications as needed Qualifiers: Hypertension type: essential hypertension Qualified Code(s): I10 - Essential (primary) hypertension (12) Insomnia Impression: - Orthopnea within the past year has exacerbated this - Recently was prescribed Trazadone, which has made a big difference Plan: Continue trazadone, reduce nursing interruptions, discontinue telemetry, changed VS to every shift Qualifiers: Insomnia type: unspecified Qualified Code(s): G47.00 - Insomnia, unspecifie d (13) Supratherapeutic INR Impression: - Warfarin indicated for atrial fibrillation - 3.2 today - Ordered warfarin per pharmacy for dose adjusting - Will order INR per finger stick for comfort of patient Plan: Continue daily INRs, hold coumadin if INR is greater than 3.0 (14) GERD (gastroesophageal reflux disease) Impression: - Patient presents with continuous belching - Takes a PPI at home - Recent SBO, now resolved Plan: Continue to monitor, treat acute CHF exacerbation to hopefully improve symptoms by reducing abdominal edema (15) Leg edema Impression: - Chronic BLE, skin discoloration indicated several years of this - Obesity Plan: Continue with diuresis, monitor weights, apply PADMA hose when swelling is reduced
[2019-02-02] MEDS ORDERED: FAMOTIDINE 20 MG TABLET PO SCH (19:49)
[2019-02-02] MEDS ORDERED: WARFARIN 2.5 MG TABLET PO SCH (21:00)
[2019-02-02] MEDS: LORazepam 0.5 MG TABLET PO SCH (22:00)
[2019-02-02] MEDS: traZODone 50 MG TABLET PO SCH (22:01)
[2019-02-02] MEDS: FUROSEMIDE 40 MG TABLET PO SCH (22:01)
[2019-02-03] MEDS: PANTOPRAZOLE 40 MG TABLET PO SCH (06:20)
[2019-02-03] MEDS: FUROSEMIDE 40 MG TABLET PO SCH ×2 (06:20→13:42)
[2019-02-03] MEDS: IPRATROPIUM 0.2 MG/ML NEB INH SCH ×3 (07:15→20:15)
[2019-02-03] MEDS: METOPROLOL SUCCINATE 25 MG TABLET PO SCH ×2 (07:56→16:49)
[2019-02-03] MEDS: AMIODARONE 200 MG TABLET PO SCH (07:57)
[2019-02-03] MEDS: LORATADINE 10 MG TABLET PO SCH (07:57)
[2019-02-03] MEDS: FAMOTIDINE 20 MG TABLET PO SCH (07:57)
[2019-02-03] MEDS: ACETAMINOPHEN 325 MG TABLET PO PRN (07:57)
[2019-02-03] MEDS: SPIRONOLACTONE 25 MG TABLET PO SCH (07:57)
[2019-02-03] MEDS: SENNA 8.6 MG TABLET PO SCH (07:58)
[2019-02-03] MEDS: ENOXAPARIN 30 MG/0.3 ML SYRINGE SUBQ SCH (07:58)
[2019-02-03] MEDS: CITALOPRAM 10 MG TABLET PO SCH (07:58)
[2019-02-03] MEDS: POLYETHYLENE GLYCOL 3350 17 GM PACKET PO SCH (07:58)
[2019-02-03] MEDS: NYSTATIN POWDER 15 GM TOP SCH ×2 (07:58→20:43)
[2019-02-03] MEDS: DOCUSATE SODIUM 250 MG CAPSULE PO SCH (07:58)
--- NOTE | 2019-02-03 14:44 | PROVIDER PROGRESS NOTE ---
Subjective - Prog Note Date Prog Note Date: 02/03/19 Prog Note Time: 14:44 - Subjective Pt reports feeling: Improved Subjective: Rekha states that she is feeling improved each day with much better activity tolerance. She states that she is worried about the burden on her son with her failing health when she returns home. She still does not want any labs, or IVs. Current Medications - Current Medications Current Medications: Active Medications: Acetaminophen (Tylenol) 650 mg PO Q4HR PRN Amiodarone HCl (Pacerone) 200 mg PO DAILY [facility] Citalopram Hydrobromide (Celexa) 10 mg PO DAILY [facility] Docusate Sodium (Colace 250mg Capsule) 250 - 500 mg PO DAILY [facility] Enoxaparin Sodium (Lovenox) 30 mg SUBQ DAILY [facility] Famotidine (Pepcid) 20 mg PO DAILY [facility] Furosemide (Lasix) 40 mg PO BIDDIURETIC [facility] Ipratropium [place] (Atrovent) 0.5 mg INH RTTID [facility] Loratadine (Claritin) 10 mg PO DAILY [facility] Lorazepam (Ativan) 0.5 mg PO QPM [facility] Metoprolol Succinate (Toprol Xl) 50 mg PO BIDWM [facility] Nystatin (Nystop) 1 applic TOP BID [facility] Pantoprazole Sodium (Protonix) 40 mg PO QDAC [facility] Polyethylene Glycol (Miralax) 17 gm PO DAILY [facility] Senna (Senokot) 8.6 - 17.2 mg PO DAILY [facility] Spironolactone (Aldactone) 25 mg PO DAILY [facility] Trazodone HCl (Desyrel) 50 mg PO QPM [facility] Warfarin Sodium (Coumadin) 1.25 mg PO [id number]@2099 [facility] Warfarin Sodium (Coumadin) 2.5 mg PO SUTUTHSA@2099 [facility] HOME meds: Citalopram Hydrobromide [Citalopram HBr] 10 mg PO DAILY 10/13/18 Metoprolol Succinate 50 mg PO BID 10/13/18 Warfarin Sodium 1.25 mg PO [id number]@209910/13/18 Warfarin Sodium 2.5 mg PO SUTUTHSA@209910/13/18 Amiodarone [Pacerone] 200 mg PO DAILY 02/01/19 Ammonium Lactate [Lac-Hydrin Five] 1 applic TOP BID 02/01/19 Furosemide [Lasix] 40 mg PO DAILY 02/01/19 Ipratropium [Atrovent] 0.5 mg INH TID 02/01/19 LORazepam [Ativan] 0.5 mg PO QPM 02/01/19 Loratadine [Claritin] 10 mg PO DAILY 02/01/19 Pantoprazole [Protonix] 40 mg PO QDAC 02/01/19 Potassium Chloride 10 meq PO DAILY 02/01/19 traZODone [Desyrel] 50 mg PO QPM 02/01/19 Objective - Vital Signs/Intake & Output Reviewed Vital Signs: Yes Vital Signs: Vital Signs x48h Temp Pulse Pulse Resp BP Pulse Ox 02/03/19 08:52 36.8 C 64 16 96 02/03/19 07:40 36.8 C 63 18 147/58 H 94 02/03/19 07:18 66 16 Intake & Output: Intake & Output 01/31/19 02/01/19 02/02/19 02/03/19 23:59 23:59 23:59 23:59 Intake Total 240 1930 240 Output Total 1600 2950 1275 Balance -1360 -1020 -1035 - Objective General Appearance: positive: No acute distress, Alert Eyes Bilateral: positive: No lid inflammation Eyes: OU Conjunctivae pale ENT: positive: Pharynx nml, No signs of dehydration Neck: positive: Thyroid nml, No JVD, Trachea midline Respiratory: positive: Chest non-tender, No respiratory distress, Other (diminished with scattered crackles bilaterally) Cardiovascular: positive: No gallop, Irregularly irregular, Bradycardia, Systolic murmur, Decreased pulse(s) Peripheral Pulses: 1+ Radial (R), 1+ Radial (L) Abdomen: positive: Non-tender, Nml bowel sounds, Hepatomegaly, Other (rounded, obese, soft) Back: positive: Nml inspection Skin: positive: No rash, Warm, Dry, Cyanosis (finger tips), Pallor Neurologic/Psychiatric: positive: Oriented x3, CN's nml (2-12), Motor nml, Sensation nml, Mood/affect nml, Weakness Reflexes: Bicep (R): 3+, Bicep (L): 3+ - Lab Results Fish Bones: 02/01/19 11:00 02/01/19 11:00 Other Labs: Lab Results x24hrs 02/03/19 Range/Units 08:55 Whole Blood INR 3.0 H (0.8-1.2) ABX Reporting Has patient been on IV antibiotics over the past 48 hours?: No Assessment/Plan - Problem List (1) Acute on chronic congestive heart failure Impression: - The patient has had an improvement with tolerating food, less belching, and appears to have less facial and chest edema - Urine output is steady, light yellow - Home medications for this condition include; metoprolol, amiodarone, furosemide and was previously on Tikosyn and Spironolactone, which appear not to be prescribed any longer - Patient has had more profound orthopnea which became worse in the past 1 year - Increased swelling in abdomen, and BLE preventing her from ambulating as much - The most troubling symptoms of this exacerbation is her breathlessness and work of breathing which has been progressive - On admission, labs show a BNP of 675, BUN 21, troponin of 0.04, and high sensitivity troponin of 28.2 - Patient continues to refuse labs or IV replacement Plan: No further IV lasix, now on PO lasix with BID dosing, continue spironolactone, monitor daily weights, urine output Qualifiers: Heart failure type: diastolic Qualified Code(s): I50.33 - Acute on chronic diastolic (congestive) heart failure (2) Pulmonary hypertension Impression: - According to last known echocardiogram, the patient had an elevated RVSP at rest of 72 mmHg - Patient denies a history of SHAHANA, but admits to longstanding COPD - Was recently qualified for home oxygen in her primary clinic, but no home oxygen has been set up yet - Presentation to the ED was with shortness of breath, hypoxia requiring oxygen, increased abdominal edema and increased BLE edema Plan: Continue spironolactone, support with oxygen, await new echo (3) Chronic obstructive pulmonary disease with hypoxia Impression: - Patient admits to a smoking history from age [age], also admits to second hand smoke for several years - Longstanding COPD - Uses atrovent nebulizers at home, and on a recent steroid taper Plan: Continue with atrovent nebs scheduled, provide oxygen and respiratory care (4) Acute kidney injury superimposed on chronic kidney disease Impression: - Recent baseline creatinine was ~ 1.1, now up to 1.4 - May have a component of poor renal perfusion which is exacerbated by current decompensated CHF - No longer with IV access, so lasix changed to PO with BID dosing, added spironolactone shortly after admission - Good urine output again today via pure wick Plan: Continue to give PO lasix, monitor urinary output, daily weights, and la bs if allowed, hold other nephrotoxic agents (5) Atrial fibrillation Impression: - Longstanding and takes amiodarone, BB and anticoagulation - Daily INR per fingerstick per lab Qualifiers: Atrial fibrillation type: chronic Qualified Code(s): I48.2 - Chronic atrial fibrillation (6) History of CVA (cerebrovascular accident) Impression: - This occurred about 20 years ago and the patient was sent to intensive therapy for her residual left sided weakness, which improved - On exam, weakness is appreciated in LUE and LLE Plan: Fall precautions, PT evaluation (7) Debility Impression: - This has been progressive and likely due to the combination between her COPD and CHF - Several hospital stays/ swing bed facility/SNFs in the past 4 months - Her son, Jimi has been living in her home to help her out - Also has home health with [facility] for extra help - PT saw patient and recommends returning home with home health PT upon discharge Plan: Continue to treat acute exacerbation, PT evaluation prior to discharge (8) DNR (do not resuscitate) Impression: - POLST on file confirms the patient's present wishes of DNR - Not currently a Palliative care or Hospice patient - The patient and her son would like some time to think about this and wish to proceed with treatment of acute illness Plan: Continue to treat acute illness, patient will remain a DNR, ordering Palliative care consult which will likely have to be taken care of outpatient due to lack of providers this week (9) Urinary incontinence Impression: - This has been a longstanding problem which has caused some perineum skin issues - Likely exacerbated by chronic diuretic use - Now with a left groin skin fold irritation- yeast, so Nystatin ordered by ED provider Plan: Continue to monitor for improvement, purewick to prevent further break sarai Qualifiers: Urinary Incontinence type: mixed stress and urge incontinence Qualified Code(s): N39.46 - Mixed incontinence (10) Depression Impression: - Several life changing events including frequent hospital admissions, swing bed and rehab stays - [id number] in her 50's recently from breast cancer/brain mets - Progression of chronic illnesses are also taking a toll on her well being - Not yet ready to proceed with Hospice, but putting in a Palliative consult to be follow up outpatient - Is prescribed Citalopram at home, continued here Plan: Continue home medications, monitor mood Qualifiers: Depression Type: major depressive disorder Major depression recurrence: recurrent Major depression episode severity: moderate (11) Hypertension Impression: - Takes lasix, metoprolol, at home - Resumed BB and lasix - Continues on spironolactone - Blood pressure 147/61 Plan: Continue to monitor, await echo, and adjust medications as needed Qualifiers: Hypertension type: essential hypertension Qualified Code(s): I10 - Ess ential (primary) hypertension (12) Insomnia Impression: - Orthopnea within the past year has exacerbated this - Recently was prescribed Trazadone, which has made a big difference Plan: Continue trazadone, reduce nursing interruptions, discontinue telemetry, changed VS to every shift Qualifiers: Insomnia type: unspecified Qualified Code(s): G47.00 - Insomnia, unspecified (13) Supratherapeutic INR Impression: - Warfarin indicated for atrial fibrillation - 3.0 today - Ordered warfarin per pharmacy for dose adjusting - Will order INR per finger stick for comfort of patient Plan: Continue daily INRs, hold coumadin if INR is greater than 3.0 (14) GERD (gastroesophageal reflux disease) Impression: - Patient presents with continuous belching - Takes a PPI at home - Recent SBO, now resolved Plan: Continue to monitor, treat acute CHF exacerbation to hopefully improve symptoms by reducing abdominal edema (15) Leg edema Impression: - Chronic BLE, skin discoloration indicated several years of this - Obesity - Patient states that she has had bad luck with PADMA hose as they cut into her skin Plan: Continue with diuresis, monitor weights, apply PADMA hose when swelling is r educed
[2019-02-03] MEDS: WARFARIN 2.5 MG TABLET PO SCH (20:43)
[2019-02-03] MEDS: LORazepam 0.5 MG TABLET PO SCH (21:17)
[2019-02-03] MEDS: traZODone 50 MG TABLET PO SCH (21:17)
[2019-02-04] MEDS: ACETAMINOPHEN 325 MG TABLET PO PRN (06:16)
[2019-02-04] MEDS: FUROSEMIDE 40 MG TABLET PO SCH ×2 (06:18→14:10)
[2019-02-04] MEDS: PANTOPRAZOLE 40 MG TABLET PO SCH (06:18)
[2019-02-04] MEDS: IPRATROPIUM 0.2 MG/ML NEB INH SCH (08:23)
[2019-02-04] MEDS: FAMOTIDINE 20 MG TABLET PO SCH (09:15)
[2019-02-04] MEDS: METOPROLOL SUCCINATE 25 MG TABLET PO SCH ×2 (09:15→17:06)
[2019-02-04] MEDS: LORATADINE 10 MG TABLET PO SCH (09:16)
[2019-02-04] MEDS: SPIRONOLACTONE 25 MG TABLET PO SCH (09:16)
[2019-02-04] MEDS: AMIODARONE 200 MG TABLET PO SCH (09:17)
[2019-02-04] MEDS: CITALOPRAM 10 MG TABLET PO SCH (09:18)
[2019-02-04] MEDS: SENNA 8.6 MG TABLET PO SCH (09:18)
[2019-02-04] MEDS: POLYETHYLENE GLYCOL 3350 17 GM PACKET PO SCH (09:19)
[2019-02-04] MEDS: DOCUSATE SODIUM 250 MG CAPSULE PO SCH (09:19)
[2019-02-04] MEDS: ENOXAPARIN 30 MG/0.3 ML SYRINGE SUBQ SCH (09:20)
[2019-02-04] MEDS: NYSTATIN POWDER 15 GM TOP SCH (09:20)
[2019-02-04 10:09] LABS: BASOPHILS # (AUTO) 0.1 10^3/uL (0.0-0.1); BASOPHILS % (AUTO) 0.8 %; EOSINOPHILS # (AUTO) 0.4 10^3/uL (0.0-0.7); EOSINOPHILS % (AUTO) 4.9 %; HGB - HEMOGLOBIN 11.8 g/dL (12.0-16.0); LYMPHOCYTES # (AUTO) 1.3 10^3/uL (1.5-3.5); MEAN CORPUSCULAR HEMOGLOBIN 28.4 pg (27.0-31.0); MEAN CORPUSCULAR HGB CONC 31.6 g/dL (32.0-36.0); MEAN CORPUSCULAR VOLUME 89.9 fL (81.0-99.0); MONOCYTES # (AUTO) 0.6 10^3/uL (0.0-1.0); MONOCYTES % (AUTO) 8.1 %; NEUTROPHILS # (AUTO) 5.2 10^3/uL (1.5-6.6); NEUTROPHILS % (AUTO) 68.5 %; PLT - PLATELET COUNT 163 10^3/uL (130-450); RED BLOOD COUNT 4.15 10^6/uL (4.20-5.40); RED CELL DISTRIBUTION WIDTH 14.6 % (12.0-15.0); WHITE BLOOD COUNT 7.6 x10^3/uL (4.8-10.8)
[2019-02-04 10:43] LABS: ALBUMIN 3.2 g/dL (3.2-5.5); ALBUMIN/GLOBULIN RATIO 1.2 (1.0-2.2); ALKALINE PHOSPHATASE 30 IU/L (42-121); ALT ALANINE AMINOTRANSFERASE < 10 IU/L (10-60); AST ASPARTATE AMINOTRANSFERASE 22 IU/L (10-42); BILIRUBIN,TOTAL 0.7 mg/dL (0.2-1.0); BUN - BLOOD UREA NITROGEN 21 mg/dL (6-20); CALCIUM 8.5 mg/dL (8.5-10.3); CARBON DIOXIDE - CO2 27 mmol/L (21-32); CHLORIDE 99 mmol/L (101-111); CREATININE 1.5 mg/dL (0.4-1.0); GFR - MDRD 33 (>89); GLUCOSE 121 mg/dL (70-100); SODIUM 140 mmol/L (135-145); TOTAL PROTEIN 5.8 g/dL (6.7-8.2)
[2019-02-04] MEDS ORDERED: IPRATROPIUM 0.2 MG/ML NEB INH SCH (11:00)
[2019-02-04 11:29] LABS: ALBUMIN 3.2 g/dL (3.2-5.5); ALBUMIN/GLOBULIN RATIO 1.2 (1.0-2.2); ALKALINE PHOSPHATASE 34 IU/L (42-121); ALT ALANINE AMINOTRANSFERASE < 10 IU/L (10-60); AST ASPARTATE AMINOTRANSFERASE 17 IU/L (10-42); BILIRUBIN,TOTAL 0.6 mg/dL (0.2-1.0); BUN - BLOOD UREA NITROGEN 20 mg/dL (6-20); CALCIUM 8.5 mg/dL (8.5-10.3); CARBON DIOXIDE - CO2 31 mmol/L (21-32); CHLORIDE 97 mmol/L (101-111); CREATININE 1.6 mg/dL (0.4-1.0); GFR - MDRD 30 (>89); GLUCOSE 111 mg/dL (70-100); SODIUM 142 mmol/L (135-145); TOTAL PROTEIN 5.8 g/dL (6.7-8.2)
--- NOTE | 2019-02-04 15:42 | Discharge Plan ---
Discharge Plan Problem Reviewed?: Yes Disposition: 06 Home Health Service Condition: Poor Prescriptions: Spironolactone [Aldactone] 25 mg PO DAILY #10 tablet Diet: Regular Activity Restrictions: Activity as Tolerated Shower Restrictions: No (fall precaution) Instruction Topics: Heart Failure, Spironolactone tablets Health Concerns: CHF exacerbation Plan of Treatment: Your ECHO reveals mild and moderate impaired systolic and diastolic heart function respectively. Followup your PCP and philosophy professor to manage your heart issue. You may continue your home medications Metoprolol, Lasix and new prescribed Spironolactone. Care Goals: stabilization of your medical conditions Assessment: assessment as the above Additional Instructions or Follow Up instructions: You may followup your PCP in one week, followup your philosophy professor as out-pt. H ome O2 is arranged for you, please followup RT instruction for how to use. Home health PT is arranged for you as well. Should your symptoms return or worsen, you may present ER or call 911 for help. [facility]-Up Care: [facility], [facility] No Smoking: If you smoke, Please STOP! Call for help. Follow-up with: Mehul Pereira MD [Primary Care Provider] -
[2019-02-04 16:18] VITALS: BP 139/59
--- NOTE | 2019-02-04 16:19 | DISCHARGE SUMMARY ---
Discharge Summary Discharge Date: 02/04/19 Discharging Provider: LLAMAS Primary Care Provider: Dr. Pereira Condition at Discharge: Poor Discharge Disposition: Home Health Service Discharge Facility Name: home - DIAGNOSES Admission Diagnoses: (1) Acute on chronic congestive heart failure (2) Pulmonary hypertension (3) Chronic obstructive pulmonary disease with hypoxia (4) Acute kidney injury superimposed on chronic kidney disease (5) Atrial fibrillation (6) History of CVA (cerebrovascular accident) (7) Debility (8) DNR (do not resuscitate) (9) Urinary incontinence (10) Depression (11) Hypertension (12) Insomnia (13) Supratherapeutic INR (14) GERD (gastroesophageal reflux disease) (15) Leg edema Discharge Diagnoses with Status of Each Condition: (1) Acute on chronic congestive heart failure improved and stable (2) Pulmonary hypertension stable (3) Chronic obstructive pulmonary disease with hypoxia improved and stable (4) Acute kidney injury superimposed on chronic kidney disease stable (5) Atrial fibrillation stable (6) History of CVA (cerebrovascular accident) stable (7) Debility stable (8) DNR (do not resuscitate) remain (9) Urinary incontinence stable (10) Depression stable (11) Hypertension stable (12) Insomnia stable (13) Supratherapeutic INR resolved (14) GERD (gastroesophageal reflux disease) stable (15) Leg edema improved and stable - HPI History of Present Illness: refer from Ms. 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 She was was brought in by her son via private car for increasing shortness of breath. Patient has known COPD which is severe, and over the recent week she has had increasing dyspnea on exertion. She has had about 4 months of complications which started during her last hospitalization here at [facility] from 10/12-10/25 for severe, diffuse rash due to a reaction to an antifungal who initially was sent to [facility]. She became short of breath at rehab, so was sent to [facility] on 11/20/2018 with one week of worsening shortness of breath, BLE edema, and weight gain, which was treated for decompensated CHF and COPD exacerbation along with prior influenza viral infection. Her course was complicated by sustained V tach. She was treated by adding amiodarone and transferred to a swing bed at [facility], and during her stay developed a SBO on 12/08/2018, then sent to [facility]. She returned to the swing bed, then discharged home with [facility] services on 01/07/2019. Since arriving back home, her son, Jimi has been staying with her. She last saw her PCP last Saturday (01/28/2019) as a follow up to her abdominal pain, but her primary complaint was shortness of breath. Dr. Pereira did a road test, which qualified her for home oxygen, but has not yet been set up. Her oxygen levels have been checked when she is walking, and she was noted to have saturations as low as 83%. She has chronically swollen legs, but she and her son believe that they are more swollen than usual. Patient states that her breathing feels quite tight, she took a DuoNeb treatment at home and this helped somewhat. She also complains of ongoing belching, heart burn, poor appetite, orthopnea, insomnia, dysuria, and a frontal headache since arriving in the ED today. Labs show an INR of 3.2, H/H of 11.4/38.0, WBC count of 7.7, sodium of 145, potassium of 38., BUN 21, creatinine of 1.4, GFR 36, glucose 92, Alk phos 33, BNP 675, high sensitivity troponin of 28.2, TSH 9.4, free T4 normal at 1.38. A chest x-ray showed worsening pulmonary congestion. She is being admitted to inpatient for further diuresis using IV lasix, telemetry monitoring, and to obtain an updated echocardiogram. - HOSPITAL COURSE Hospital Course: (1) Acute on chronic congestive heart failure pt feel significant better for her shortness of breath after diuretic. BNP run down to 500. pt has 99% sats on one liter of O2 pt has 50-55% EF in the new ECHO. pt is prescribed new meds of Spironolactone. continue home meds Metoprolol and Lasix, followup rare/endangered species specialist as out-pt (2) Pulmonary hypertension pt has 56 mmHG of RVSP at ECHO, stable (3) Chronic obstructive pulmonary disease with hypoxia pt was hypoxic at rest, with room air O2 sats of 88%. at rest with O2 at 1 lpm via nasal cannula, her sats improved to 97%. with exertion on 3 lpm via nasal cannula her sats were 94% at 160 feet. I am ordering home O2 at 1 lpm via nasal cannula continuously and 3 lpm with exertion. (4) Acute kidney injury superimposed on chronic kidney disease stable. pt has effect of cardiacorenal syndrome, diuretics affect pt's renal function. (5) Atrial fibrillation HR is stable, continue Coumadin, followup PCP management (6) History of CVA (cerebrovascular accident) stable (7) Debility stable (8) DNR (do not resuscitate) remain DNR (9) Urinary incontinence stable (10) Depression stable (11) Hypertension stable, continue home meds (12) Insomnia stable (13) Supratherapeutic INR stable, continue Coumadin followup PCP management (14) GERD (gastroesophageal reflux disease) stable (15) Leg edema improved after diuretics - ALLERGIES Allergies/Adverse Reactions: Allergies Allergy/AdvReac Type Severity Reaction Status Date / Time aspirin Allergy Unknown Verified 02/01/19 09:52 celecoxib Allergy Unknown Verified 02/01/19 09:52 Iodinated Contrast Media Allergy Anaphylaxis Verified 02/01/19 09:52 [Iodinated Contrast- Oral and IV Dye] morphine Allergy Unknown Verified 02/01/19 09:52 Penicillins Allergy Rash Verified 02/01/19 09:52 shellfish derived Allergy Unknown Verified 02/01/19 09:52 Sulfa (Sulfonamide Allergy Rash Verified 02/01/19 09:52 Antibiotics) albuterol AdvReac Anxiety Verified 02/01/19 09:52 - MEDICATIONS Home Medications: Ambulatory Orders Medication Instructions Recorded Confirmed Citalopram Hydrobromide 10 mg PO DAILY 10/13/18 02/01/19 [Citalopram HBr] Metoprolol Succinate 50 mg PO BID 10/13/18 02/01/19 Warfarin Sodium 1.25 mg PO MOWEFR@2100 10/13/18 02/01/19 Warfarin Sodium 2.5 mg PO SUTUTHSA@2100 10/13/18 02/01/19 Amiodarone [Pacerone] 200 mg PO DAILY 02/01/19 02/01/19 Ammonium Lactate [Lac-Hydrin Five] 1 applic TOP BID 02/01/19 02/01/19 Furosemide [Lasix] 40 mg PO DAILY 02/01/19 02/01/19 Ipratropium [Atrovent] 0.5 mg INH TID 02/01/19 02/02/19 LORazepam [Ativan] 0.5 mg PO QPM 02/01/19 02/01/19 Loratadine [Claritin] 10 mg PO DAILY 02/01/19 02/01/19 Pantoprazole [Protonix] 40 mg PO QDAC 02/01/19 02/01/19 traZODone [Desyrel] 50 mg PO QPM 02/01/19 02/01/19 Spironolactone [Aldactone] 25 mg PO DAILY #10 tablet 02/04/19 - PHYSICAL EXAM AT DISCHARGE General Appearance: positive: No acute distress, Alert. negative: Lethargic Eyes Bilateral: positive: Normal inspection, PERRL, No lid inflammation, Conjunctivae nml ENT: positive: ENT inspection nml, Pharynx nml, No signs of dehydration. negative: Purulent nasal drainage, Pharyngeal erythema, Oral lesions Neck: positive: Nml inspection, Thyroid nml, No JVD, Trachea midline. negative: Thyromegaly, Lymphadenopathy (R), Lymphadenopathy (L), Stiff neck, Swelling/bruising, Tracheal deviation Respiratory: positive: Chest non-tender, No respiratory distress, Breath sounds nml. negative: Wheezes, Rales, Rhonchi Cardiovascular: positive: Regular rate & rhythm, No murmur, No gallop. negative: Irregularly irregular, Extrasystoles, Tachycardia, Bradycardia, JVD present, Systolic murmur, Diastolic murmur Peripheral Pulses: positive: 2+ Abdomen: positive: Non-tender, No organomegaly, Nml bowel sounds, No distention. negative: Tenderness, Guarding, Rebound Back: positive: Nml inspection. negative: CVA tenderness (R), CVA tenderness (L) Skin: positive: Color nml, No rash, Warm, Dry. negative: Cyanosis, Diaphoresis, Pallor Extremities: positive: Non-tender, Nml appearance. negative: Calf tenderness, Joint swelling, Antoinette's sign/cords Neurologic/Psychiatric: positive: Oriented x3, Sensation nml, Mood/affect nml. negative: Weakness, Facial droop, Slurred/abnml speech, Depressed mood/affect - LABS Result Diagrams: 02/04/19 09:55 02/04/19 11:10 - FOLLOW UP Follow Up: You may followup your PCP in one week, followup your rare/endangered species specialist as out-pt. Home O2 is arranged for you, please followup RT instruction for how to use. Home health PT is arranged for you as well. Should your symptoms return or worsen, you may present ER or call 911 for help. - TIME SPENT Time Spent in Discharge (Minutes): 50
== END 2019-02-04 17:10 | disposition home health service (06) | DRG 291 ==
LOC: ED 09:12 → MS2 14:05
PROVIDERS: ADMIT Nurse Practitioner; ATTEND Nurse Practitioner Gerontology
DX: I13.0 Hypertensive heart and chronic kidney disease with heart failure and stage 1 through stage 4 chronic kidney disease, or unspecified chronic kidney disease (principal); I50.43 Acute on chronic combined systolic (congestive) and diastolic (congestive) heart failure; N17.9 Acute kidney failure, unspecified; I69.354 Hemiplegia and hemiparesis following cerebral infarction affecting left non-dominant side; D64.9 Anemia, unspecified; R21 Rash and other nonspecific skin eruption; I48.91 Unspecified atrial fibrillation; J84.9 Interstitial pulmonary disease, unspecified; F33.1 Major depressive disorder, recurrent, moderate; T50.1X5A Adverse effect of loop [high-ceiling] diuretics, initial encounter; Y92.009 Unspecified place in unspecified non-institutional (private) residence as the place of occurrence of the external cause; I27.20 Pulmonary hypertension, unspecified; J44.9 Chronic obstructive pulmonary disease, unspecified; R09.02 Hypoxemia; N18.3 Chronic kidney disease, stage 3 (moderate); I48.2 Chronic atrial fibrillation; G47.00 Insomnia, unspecified; K21.9 Gastro-esophageal reflux disease without esophagitis; E66.9 Obesity, unspecified; N39.46 Mixed incontinence; B37.2 Candidiasis of skin and nail; F41.9 Anxiety disorder, unspecified; I25.10 Atherosclerotic heart disease of native coronary artery without angina pectoris; F03.90 Unspecified dementia, unspecified severity, without behavioral disturbance, psychotic disturbance, mood disturbance, and anxiety; I73.9 Peripheral vascular disease, unspecified; Z51.5 Encounter for palliative care; Z66 Do not resuscitate; Z86.711 Personal history of pulmonary embolism; Z95.828 Presence of other vascular implants and grafts; Z79.01 Long term (current) use of anticoagulants; Z68.36 Body mass index [BMI] 36.0-36.9, adult; Z87.19 Personal history of other diseases of the digestive system; Z86.79 Personal history of other diseases of the circulatory system; Z79.899 Other long term (current) drug therapy; Z90.49 Acquired absence of other specified parts of digestive tract; Z87.891 Personal history of nicotine dependence; Z77.22 Contact with and (suspected) exposure to environmental tobacco smoke (acute) (chronic); Z95.0 Presence of cardiac pacemaker; Z63.4 Disappearance and death of family member
CPT/HCPCS: 36415; 71045; 80053; 83690; 83880; 84484; 85025; 85610; 93005; 93306; 94640; 94761; 96374; 97116; 97161; 97530; 99284; 99285; A9270; J1650

== ENCOUNTER 2019-02-11 15:39 | Outpatient (CLI) | payer MEDICARE, OTHER ==
[2019-02-11 18:59] LABS: BASOPHILS # (AUTO) 0.1 10^3/uL (0.0-0.1); BASOPHILS % (AUTO) 0.7 %; EOSINOPHILS # (AUTO) 0.2 10^3/uL (0.0-0.7); EOSINOPHILS % (AUTO) 3.3 %; HGB - HEMOGLOBIN 11.2 g/dL (12.0-16.0); LYMPHOCYTES # (AUTO) 1.2 10^3/uL (1.5-3.5); LYMPHOCYTES % (AUTO) 18.4 %; MEAN CORPUSCULAR HEMOGLOBIN 28.6 pg (27.0-31.0); MEAN CORPUSCULAR HGB CONC 29.8 g/dL (32.0-36.0); MEAN CORPUSCULAR VOLUME 95.9 fL (81.0-99.0); MEAN PLATELET VOLUME 11.3 fL (7.9-10.8); MONOCYTES # (AUTO) 0.5 10^3/uL (0.0-1.0); MONOCYTES % (AUTO) 7.8 %; NEUTROPHILS # (AUTO) 4.7 10^3/uL (1.5-6.6); NEUTROPHILS % (AUTO) 69.5 %; PLT - PLATELET COUNT 215 10^3/uL (130-450); RED BLOOD COUNT 3.92 10^6/uL (4.20-5.40); RED CELL DISTRIBUTION WIDTH 14.5 % (12.0-15.0); WHITE BLOOD COUNT 6.7 x10^3/uL (4.8-10.8)
[2019-02-11 19:15] LABS: CALCIUM 8.7 mg/dL (8.5-10.3); CREATININE 1.5 mg/dL (0.4-1.0)
== END 2019-02-11 23:59 | disposition home or self-care (01) ==
LOC: LAB.WCP 15:39
PROVIDERS: ATTEND Family Medicine
DX: I11.0 Hypertensive heart disease with heart failure (principal); I50.32 Chronic diastolic (congestive) heart failure; R60.9 Edema, unspecified
CPT/HCPCS: 36415; 80048; 85025

== ENCOUNTER 2019-02-13 08:00 | Outpatient (CLI) | payer MEDICARE, OTHER | END 2019-02-13 23:59 | disposition home or self-care (01) | LOC: LAB.WCP 08:00 | PROVIDERS: ATTEND Family Medicine | DX: I48.0 Paroxysmal atrial fibrillation (principal); I26.99 Other pulmonary embolism without acute cor pulmonale; Z79.01 Long term (current) use of anticoagulants ==

== ENCOUNTER 2019-02-16 08:00 | Outpatient (CLI) | payer MEDICARE, OTHER | END 2019-02-16 23:59 | disposition home or self-care (01) | LOC: LAB.WCP 08:00 | PROVIDERS: ATTEND Family Medicine | DX: I48.0 Paroxysmal atrial fibrillation (principal); Z79.01 Long term (current) use of anticoagulants ==

== ENCOUNTER 2019-03-13 08:00 | Outpatient (CLI) | payer MEDICARE, OTHER | END 2019-03-13 08:01 | disposition home or self-care (01) | LOC: LAB.WCP 08:00 | PROVIDERS: ATTEND Family Medicine | DX: Z53.9 Procedure and treatment not carried out, unspecified reason (principal) ==